=== PATIENT | female | born 1935 | race Caucasian/White ===

== ENCOUNTER → 2018-02-11 10:36 | Outpatient (CLI) | payer MEDICARE, OTHER, SELFPAY ==
--- NOTE | 2018-02-11 | DI.CT.S_ITS ---
PROCEDURE: CT CHEST WO CON INDICATIONS: PNEUMONIA PLEURAL EFFUSION TECHNIQUE: Noncontrast 5 mm thick sections acquired from the pulmonary apices to the posterior costophrenic angles. 7 mm thick coronal and sagittal MIP reformats were then acquired. For radiation dose reduction, the following was used: automated exposure control, adjustment of mA and/or kV according to patient size. COMPARISON: [facility], CT, ANGIOGRAPHY CHEST, 01/24/2018, 10:01. FINDINGS: Image quality: Excellent. Lungs and pleura: No acute air space opacities. No pleural effusions or pneumothorax. Central and peripheral airways are patent and normal in caliber. Mediastinum: Heart size is normal. Slight pericardial effusion. No mediastinal adenopathy by size criteria. Thoracic aorta and central pulmonary arteries are normal in size. Esophagus is normal in caliber. No hiatal hernia. Bones and chest wall: No suspicious bony lesions. No vertebral body compression fractures. No axillary or supraclavicular adenopathy by size criteria. Thyroid gland is not well-visualized by this noncontrast technique. Prior surgical clips right axilla Abdomen: Visualized upper abdominal solid organs and bowel loops appear normal in the absence of contrast. IMPRESSION: Right axillary surgical clips indicate likelihood of prior breast carcinoma surgery. Resolution of bilateral pleural effusions present 01/24/[address] scanning. No suspicion for pleural metastatic disease at this time. Very small pericardial effusion is again noted, diminished in size from the comparison CT scan 01/24/18. Sternotomy wires, presumed prior CABG. No definite acute disease. Dictated by: Tomas García M.D. on 02/11/2018 at 13:45 Approved by: Tomas García M.D. on 02/11/2018 at 13:48
== END ==
PROVIDERS: PCP Internal Medicine; Visit Provider Internal Medicine
DX: J18.9 Pneumonia, unspecified organism (principal); J90 Pleural effusion, not elsewhere classified
CPT/HCPCS: 71250

== ENCOUNTER → 2018-03-04 08:12 | Outpatient (CLI) | payer MEDICARE, OTHER, SELFPAY ==
--- NOTE | 2018-03-04 | DI.ECHO.S_ITS ---
[facility] +---------+ : : [address] [place] : : : : [id number] : : : : Phone: [phone]+ Echocardiogram Report + + :Name: MARC JO Study Date: 03/04/2018 Height: 66 in : :[facility] Exam Location: [facility] Weight: 180 lb : : Gender: Female BSA: 1.9 m2 : :: 1935 Age: 82 yrs BP: 152/90 mmHg: :Reason For Study: Chest Pain : :Ordering Physician: Ynes Heart Performed By: Magalys Bolivar : :Referring: [facility] : + + Interpretation Summary The left ventricle is normal in size. There is mild concentric left ventricular hypertrophy. Left ventricular systolic function is normal without focal wall motion abnormalities. The ejection fraction is estimated to be 60- 65%. Assessment of diastolic parameters indicates a relaxation abnormality of the left ventricle, consistent with normal filling pressures. The right ventricle is normal in size and function. The right ventricular systolic pressure is estimated at 26 mmHg assuming a right atrial pressure of 3 mm Hg. The left atrium is mildly dilated. Right atrial size is normal. There is no significant valvular heart disease. The aortic root is normal size. No significant changes since prior echo study on 07/01/2017. Procedure: A two-dimensional transthoracic echocardiogram with color flow and Doppler was performed. The study quality was technically adequate. Most of the acoustic windows were suboptimal, but the best imaging was obtained from the parasternal window. Comparison is made with the echocardiogram of 07/01/2017. The patient was in normal sinus rhythm during the exam. Left Ventricle: The left ventricle is normal in size. There is mild concentric left ventricular hypertrophy. Left ventricular systolic function is normal without focal wall motion abnormalities. The ejection fraction is estimated to be 60-65%. Assessment of diastolic parameters indicates a relaxation abnormality of the left ventricle, consistent with normal filling pressures. Right Ventricle: The right ventricle is normal in size and function. Atria: The left atrium is mildly dilated. Right atrial size is normal. The interatrial septum is intact with no evidence for an atrial septal defect. Mitral Valve: The mitral valve leaflets appear mildly thickened, but open well. There is mild mitral annular calcification. There is trace mitral regurgitation. Aortic Valve: The aortic valve is trileaflet. The aortic valve opens well. No aortic regurgitation is present. Tricuspid Valve: The tricuspid valve is normal in structure and function. There is trace tricuspid regurgitation. The right ventricular systolic pressure is estimated at 26 mmHg assuming a right atrial pressure of 3 mm Hg. Pulmonic Valve: The pulmonic valve is not well seen, but is grossly normal. There is a trace or physiologic amount of pulmonic regurgitation. There is no significant valvular heart disease. Great Vessels: The aortic root is normal size. The ascending aorta could not be visualized. The IVC is of normal diameter and collapses greater than 50% with a sniff. This suggests a low right atrial pressure of 3 mm Hg. Pericardium/ Pleura There is no pericardial effusion. There is an anterior echo-free space consistent with a fat pad. There is no pleural effusion. MMode/2D Measurements & Calculations LVIDd: 4.5 cm LVOT diam: 2.2 cm LVIDs: 2.9 cm FS: 35.9 % EPSS: 0.38 cm IVSd: 1.2 cm LVPWd: 1.3 cm LV ahuja. diameter/BSA (cm/m^2): 2.4 LV sys. diameter/BSA (cm/m^2): 1.5 LA A2 area: 17.5 cm2 RA long axis: 4.4 cm LA A4 area: 25.5 cm2 RA area: 13.5 cm2 LA length (vol): 5.6 cm RA vol: 35.4 ml LA vol: 67.6 ml RA : 18.5 ml/m2 LA vol index: 35.4 ml/m2 TAPSE: 2.2 cm Doppler Measurements & Calculations Ao V2 max: 116.5 cm/sec LVOT Max Ranjit: 77.6 cm/sec Ao V2 mean: 80.0 cm/sec LV V1 max P.4 mmHg Ao max P.4 mmHg LV V1 VTI: 16.6 cm Ao mean P.9 mmHg CAIO(I,D): 2.5 cm2 Ao V2 VTI: 24.0 cm CAIO(V,D): 2.4 cm2 sev ratio: 0.69 CAIO indexed to BSA (cm^2/m^2): 1.3 MV E max ranjit: 74.2 cm/sec TR max ranjit: 240.5 cm/sec MV A max ranjit: 92.1 cm/sec TR max P.1 mmHg MV E/A: 0.81 PA V2 max: 67.8 cm/sec Med Peak E' Ranjit: 6.0 cm/sec PA V2 mean: 44.9 cm/sec E/E' med: 12.3 PA mean P.93 mmHg Lat Peak E' Ranjit: 8.3 cm/sec PA pr(Accel): 7.5 mmHg E/E' lat: 9.0 E/e' average: 10.6 MV dec time: 0.24 sec Reading Physician:WIL
== END ==
PROVIDERS: PCP Internal Medicine; Visit Provider Internal Medicine
DX: R07.9 Chest pain, unspecified (principal)
CPT/HCPCS: 93306

== ENCOUNTER → 2018-03-27 16:38 | Outpatient (CLI) | payer MEDICARE, OTHER, SELFPAY ==
[2018-03-27 18:01] LABS: Alanine Aminotransferase 156 IU/L (9-52); Albumin 4.7 g/dL (3.5-5.0); Albumin Globulin Ratio 1.7 (1.0-2.8); Alkaline Phosphatase 178 U/L (38-126); Aspartate Aminotransferase 100 IU/L (14-36); BUN Creatinine Ratio 24.3 (6-22); Bilirubin Total 0.8 mg/dL (0.2-1.3); Blood Urea Nitrogen 17 mg/dL (7-17); Calcium 12.5 mg/dL (8.4-10.2); Carbon Dioxide 28 mmol/L (22-32); Chloride 104 mmol/L (98-107); Estimated Glomerular Filt Rate > 60.0 mL/min (>60); Globulin 2.8 g/dL (1.7-4.1); Glucose 99 mg/dL (80-110); HEMOLYSIS < 15 (0-50); Potassium 3.9 mmol/L (3.4-5.1); Sodium 143 mmol/L (137-145); Total Protein 7.5 g/dL (6.3-8.2)
[2018-03-27 18:03] LABS: Erythrocyte Sedimentation Rate 7 MM/HR (0-20)
[2018-03-27 18:13] LABS: C-Reactive Protein Quant < 0.5 mg/dL (<1.0); Rheumatoid Factor < 8.6 IU/mL (<12.0)
[2018-03-29 19:58] LABS: ANA Screen, IFA Negative (Negative)
== END ==
PROVIDERS: PCP Internal Medicine; Visit Provider Internal Medicine Cardiovascular Disease
DX: I30.0 Acute nonspecific idiopathic pericarditis (principal); I10 Essential (primary) hypertension
CPT/HCPCS: 36415; 80053; 84443; 85651; 86038; 86140; 86430

== ENCOUNTER → 2018-04-17 07:44 | Outpatient (CLI) | payer MEDICARE, OTHER, SELFPAY ==
--- NOTE | 2018-04-17 | DI.US.S_ITS ---
PROCEDURE: US ABDOMEN COMPLETE INDICATIONS: ABNORMAL RESULTS OF LIVER FUNCTION STUDIES TECHNIQUE: Real-time scanning was performed of the abdominal and retroperitoneal organs, with image documentation. COMPARISON: [facility], US, ABDOMEN COMPLETE, 05/22/2016, 8:54. FINDINGS: Liver: Liver has increased in size and is hyperechoic in echotexture. Gallbladder: Gallbladder is clear with normal wall thickness. Biliary ducts: Intrahepatic bile ducts are non-dilated. Extrahepatic bile duct caliber measures 5 mm. Normal is 6-7 mm or less in diameter, or 10 mm or less post-cholecystectomy. Pancreas: Visualized portions of the pancreas are sonographically normal. Tail is obscured. Spleen: Spleen is normal in size and homogeneous in echotexture. Kidneys: Kidneys are normal in size and echotexture. Right kidney measures 11.8 cm long; left kidney measures 11.0 cm long. No hydronephrosis or nephrolithiasis. No solid masses. Aorta: Visualized aorta is normal in caliber at less than 3 cm. calcified plaques. Iliacs: Proximal common iliac arteries are normal in caliber at less than 2.5 cm. IVC: Intrahepatic inferior vena cava is patent. Miscellaneous: No free abdominal fluid. IMPRESSION: 1. Liver has increased in size since prior study and shows evidence of steatosis. No mass lesions identified. Correlation with liver enzymes recommended. 2. No apparent biliary abnormality. Remainder of exam is unremarkable. Dictated by: Rocky Davenport M.D. on 04/17/2018 at 10:26 Approved by: Rocky Davenport M.D. on 04/17/2018 at 10:28
[2018-04-17 09:39] LABS: Alanine Aminotransferase 87 IU/L (9-52); Alkaline Phosphatase 146 U/L (38-126); Aspartate Aminotransferase 51 IU/L (14-36); Bilirubin Total 0.5 mg/dL (0.2-1.3); Creatine Kinase 38 U/L (30-135)
[2018-04-17 09:43] LABS: Rheumatoid Factor < 8.6 IU/mL (<12.0)
[2018-04-20 23:19] LABS: ANA Screen NEGATIVE (Negative); DNA Antibody Crithidia IFA NEGATIVE (Negative); Rheumatoid Factor <14 IU/mL; Sjogren Antiboday SS-A <1.0 NEG AI (<1.0 NEGATIVE); Sjogren Antiboday SS-B <1.0 NEG AI (<1.0 NEGATIVE); Sm Antibody <1.0 NEG AI (<1.0 NEGATIVE); Sm/RNP Antibody <1.0 NEG AI (<1.0 NEGATIVE)
== END ==
PROVIDERS: PCP Internal Medicine; Visit Provider Internal Medicine
DX: K76.0 Fatty (change of) liver, not elsewhere classified (principal); R94.5 Abnormal results of liver function studies; M25.50 Pain in unspecified joint; M79.1 Myalgia
CPT/HCPCS: 36415; 76700; 82247; 82550; 84075; 84450; 84460; 86038; 86430

== ENCOUNTER → 2018-05-12 09:00 | Outpatient (CLI) | payer MEDICARE, OTHER, SELFPAY ==
[2018-05-12 10:32] LABS: Alanine Aminotransferase 98 IU/L (9-52); Aspartate Aminotransferase 51 IU/L (14-36); BUN Creatinine Ratio 32.9 (6-22); Blood Urea Nitrogen 23 mg/dL (7-17); Carbon Dioxide 27 mmol/L (22-32); Chloride 104 mmol/L (98-107); Estimated Glomerular Filt Rate > 60.0 mL/min (>60); Glucose 167 mg/dL (80-110); HEMOLYSIS < 15 (0-50); Potassium 4.3 mmol/L (3.4-5.1); Sodium 141 mmol/L (137-145)
== END ==
PROVIDERS: PCP Internal Medicine; Visit Provider Internal Medicine
DX: E21.3 Hyperparathyroidism, unspecified (principal); R94.5 Abnormal results of liver function studies
CPT/HCPCS: 36415; 80048; 84450; 84460

== ENCOUNTER → 2018-05-16 12:33 | Outpatient (CLI) | payer MEDICARE, OTHER, SELFPAY | PROVIDERS: PCP Internal Medicine; Visit Provider Internal Medicine | DX: E21.3 Hyperparathyroidism, unspecified (principal); Z78.0 Asymptomatic menopausal state | CPT/HCPCS: 77080 ==

== ENCOUNTER → 2018-08-11 09:36 | Outpatient (CLI) | payer MEDICARE, OTHER, SELFPAY ==
[2018-08-11 10:59] LABS: Hemoglobin A1C% w Est Avg Glu 6.7 % (4.0-6.0)
[2018-08-11 11:40] LABS: Alanine Aminotransferase 134 IU/L (9-52); Aspartate Aminotransferase 88 IU/L (14-36); BUN Creatinine Ratio 21.3 (6-22); Blood Urea Nitrogen 17 mg/dL (7-17); Calcium 12.1 mg/dL (8.4-10.2); Carbon Dioxide 27 mmol/L (22-32); Chloride 105 mmol/L (98-107); Estimated Glomerular Filt Rate > 60.0 mL/min (>60); Glucose 148 mg/dL (80-110); HDL Cholesterol 53 mg/dL (40-60); HEMOLYSIS < 15 (0-50); Potassium 4.6 mmol/L (3.4-5.1); Sodium 142 mmol/L (137-145); Triglycerides 299 mg/dL (35-150)
[2018-08-11 11:53] LABS: Cholesterol 337 mg/dL (140-199); LDL Cholesterol Calculated 224 mg/dL (<100)
[2018-08-11 11:56] LABS: TSH w/ Reflex to FT4 3.01 uIU/mL (0.47-4.68)
== END ==
PROVIDERS: PCP Internal Medicine; Visit Provider Internal Medicine
DX: I10 Essential (primary) hypertension (principal); E11.9 Type 2 diabetes mellitus without complications; E78.5 Hyperlipidemia, unspecified
CPT/HCPCS: 36415; 80048; 80061; 83036; 84443; 84450; 84460

== ENCOUNTER → 2018-08-13 15:55 | Outpatient (CLI) | payer MEDICARE, OTHER, SELFPAY ==
--- NOTE | 2018-08-13 | DI.MRI.S_ITS ---
PROCEDURE: MR ELBOW RT WO CON INDICATIONS: PAIN IN RIGHT ELBOW TECHNIQUE: Noncontrast coronal proton density fast spin echo and T2 fast spin echo with fat saturation, axial and sagittal T1 spin echo and T2 fast spin echo with fat saturation through the elbow. COMPARISON: None. FINDINGS: Image quality: Excellent. Lateral structures: The lateral ulnar collateral ligament and radial collateral ligament both appear intact. Mildly thickened proximal radial collateral ligament is seen near its humeral insertion suggestive of low-grade ligament sprain. Mildly thickened overlying common extensor tendon origin at its humeral insertion is also seen concerning for low-grade tendinosis. No evidence of common extensor tendon tear. Medial structures: The ulnar collateral ligament appears intact. The overlying common flexor tendon appears normal. The ulnar nerve appears normal in size and signal within the cubital tunnel. Anterior structures: The biceps and brachialis tendons both appear intact as they insert onto the proximal radius and ulna, respectively. No bicipitoradial bursal fluid. The median and radial neurovascular bundles appear normal; no focal muscle atrophy to suggest nerve impingement. Posterior structures: The conjoint triceps tendon from the long and lateral heads appears intact. The medial head of the triceps tendon also appears normal, with direct muscle insertion onto the olecranon. No olecranon bursal fluid. Bone and cartilage: No bone marrow contusions or fractures. No osteochondral injuries. Osteoarthritic changes are noted involving medial portion of elbow joint with joint space narrowing, subchondral sclerosis and cyst formation, and small marginal osteophyte formation. IMPRESSION: 1. Suggestion of lateral epicondylitis with tendinosis involving proximal common extensor tendon origin as well as low-grade proximal radial collateral ligament sprain. No full-thickness tendon or ligament rupture. 2. 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 No fracture or dislocation. No marrow edema. No significant joint effusion. Dictated by: Ralph Harris M.D. on 08/14/2018 at 8:48 Approved by: Ralph Harris M.D. on 08/14/2018 at 9:21
== END ==
PROVIDERS: PCP Internal Medicine; Visit Provider Internal Medicine
DX: M25.521 Pain in right elbow (principal); M19.021 Primary osteoarthritis, right elbow
CPT/HCPCS: 73221

== ENCOUNTER → 2018-08-25 13:46 | Outpatient (CLI) | payer MEDICARE, OTHER, SELFPAY ==
--- NOTE | 2018-08-25 | DI.MG.S_ITS ---
BILATERAL DIGITAL SCREENING MAMMOGRAM 3D/2D WITH CAD: 08/25/2018 CLINICAL: Routine screening. Personal history of right breast cancer. Comparison is made to exams dated: 08/01/2017 mammogram, 05/17/2017 mammogram, and 07/30/2016 mammogram - [facility]. The tissue of both breasts is heterogeneously dense. This may lower the sensitivity of mammography. Current study was also evaluated with a Computer Aided Detection (CAD) system. There are benign post operative findings in the right breast. No significant masses, calcifications, or other findings are seen in either breast. There has been no significant interval change. IMPRESSION: There is no mammographic evidence of malignancy. A 1 year screening mammogram is recommended. This exam was interpreted at Station ID: [id number]. NOTE: For mammograms, a report in lay terms will be sent to the patient. Approximately 15% of breast malignancies will not be visualized mammographically. In the management of a palpable breast mass, a negative mammogram must not discourage biopsy of a clinically suspicious lesion. Electronically Signed By: Esvin agee/gopal:08/25/2018 20:43:37 letter sent: Normal Exam ACR BI-RADS Category 2: Benign Finding(s) 3342F
== END ==
PROVIDERS: PCP Internal Medicine; Visit Provider Internal Medicine
DX: Z12.31 Encounter for screening mammogram for malignant neoplasm of breast (principal); Z85.3 Personal history of malignant neoplasm of breast
CPT/HCPCS: 77063; 77067

== ENCOUNTER → 2018-09-06 08:40 | Outpatient (CLI) | payer MEDICARE, OTHER, SELFPAY ==
[2018-09-06 09:34] LABS: HDL Cholesterol 58 mg/dL (40-60); Triglycerides 345 mg/dL (35-150)
[2018-09-06 09:40] LABS: Cholesterol 318 mg/dL (140-199); LDL Cholesterol Calculated 191 mg/dL (<100)
== END ==
PROVIDERS: PCP Internal Medicine; Visit Provider Internal Medicine Cardiovascular Disease
DX: E78.2 Mixed hyperlipidemia (principal)
CPT/HCPCS: 36415; 80061

== ENCOUNTER → 2019-03-04 09:18 | Outpatient (CLI) | payer MEDICARE, OTHER, SELFPAY ==
--- NOTE | 2019-03-04 | DI.RAD.S_ITS ---
PROCEDURE: XR LUMBAR SPINE 2-3V INDICATIONS: BACK PAIN TECHNIQUE: 3 views of the lumbar spine were acquired. COMPARISON: [facility], CT, CT CHEST WO [facility], 02/11/2018, 10:45. FINDINGS: Bones: 5 [id number] vertebrae are present. The lowest visualized thoracic rib on the frontal projection is quite small, considered T12. On the lateral view the L5 vertebral body therefore has its upper end plate at the upper margin of the iliac crest level. There is normal bony alignment except for slight anterolisthesis of L4 and L5 due to facet osteoarthritis.. No vertebral body compression fractures. No suspicious bony lesions. Soft tissues: Overlying bowel gas pattern is normal. No suspicious soft tissue calcifications. IMPRESSION: No compression fracture seen. There is a mild degree of degenerative disc height reduction along the lumbosacral spine. Slight grade 1 anterolisthesis of L4-L5 is associated with bilateral mild facet osteoarthritis at this level, and mild to moderate such degeneration can be seen at the L5-S1 level. There is potential for spinal and foraminal stenosis at these 2 lower levels. Dictated by: Tomas García M.D. on 03/04/2019 at 9:55 Approved by: Tomas García M.D. on 03/04/2019 at 10:00
== END ==
PROVIDERS: PCP Internal Medicine; Visit Provider Internal Medicine
DX: M54.5 Low back pain (principal); M47.816 Spondylosis without myelopathy or radiculopathy, lumbar region; M51.37 Other intervertebral disc degeneration, lumbosacral region
CPT/HCPCS: 72100

== ENCOUNTER → 2019-03-12 08:15 | Outpatient (CLI) | payer MEDICARE, OTHER, SELFPAY ==
[2019-03-12 09:18] LABS: Hemoglobin A1C% w Est Avg Glu 7.8 % (4.0-6.0)
[2019-03-12 09:40] LABS: Alanine Aminotransferase 98 IU/L (9-52); Albumin 4.5 g/dL (3.5-5.0); Albumin Globulin Ratio 1.5 (1.0-2.8); Alkaline Phosphatase 220 U/L (38-126); Aspartate Aminotransferase 78 IU/L (14-36); BUN Creatinine Ratio 27.5 (6-22); Bilirubin Total 0.6 mg/dL (0.2-1.3); Blood Urea Nitrogen 22 mg/dL (7-17); Carbon Dioxide 30 mmol/L (22-32); Chloride 103 mmol/L (98-107); Cholesterol 207 mg/dL (140-199); Estimated Glomerular Filt Rate > 60.0 mL/min (>60); Globulin 3.1 g/dL (1.7-4.1); Glucose 202 mg/dL (80-110); HDL Cholesterol 45 mg/dL (40-60); HEMOLYSIS 20 (0-50); LDL Cholesterol Calculated 96 mg/dL (<100); Potassium 4.1 mmol/L (3.4-5.1); Sodium 140 mmol/L (137-145); Total Protein 7.6 g/dL (6.3-8.2); Triglycerides 328 mg/dL (35-150)
[2019-03-12 11:57] LABS: Free T4, Direct Thyroxine 0.86 ng/dL (0.78-2.19)
== END ==
PROVIDERS: PCP Internal Medicine; Visit Provider Internal Medicine
DX: E21.3 Hyperparathyroidism, unspecified (principal); E78.5 Hyperlipidemia, unspecified; E11.9 Type 2 diabetes mellitus without complications; E03.9 Hypothyroidism, unspecified
CPT/HCPCS: 36415; 80053; 80061; 83036; 84439; 84443

== ENCOUNTER → 2019-06-22 13:39 | Outpatient (CLI) | payer MEDICARE, OTHER, SELFPAY ==
--- NOTE | 2019-06-22 | DI.RAD.S_ITS ---
PROCEDURE: XR CHEST 2V INDICATIONS: ACUTE BRONCHITIS TECHNIQUE: 2 views of the chest were acquired. COMPARISON: [facility], , CHEST 1 VIEW, 01/01/2018, 11:53. FINDINGS: Surgical changes and devices: Median sternotomy wires are seen. Surgical clips are noted in right axilla. Lungs and pleura: Lungs are clear. No pleural effusions or pneumothorax. Mediastinum: Tortuous thoracic aorta is seen. Heart size is normal. Bones and chest wall: No suspicious bony abnormalities. Soft tissues appear unremarkable. IMPRESSION: Tortuous thoracic aorta. No focal infiltrate, pleural effusion or pneumothorax. Dictated by: Ralph Harris M.D. on 06/22/2019 at 16:18 Approved by: Ralph Harris M.D. on 06/22/2019 at 16:20
== END ==
PROVIDERS: PCP Internal Medicine; Visit Provider Internal Medicine
DX: J20.9 Acute bronchitis, unspecified (principal)
CPT/HCPCS: 71046

== ENCOUNTER → 2019-08-31 13:38 | Outpatient (CLI) | payer MEDICARE, OTHER, SELFPAY | PROVIDERS: PCP Internal Medicine; Visit Provider Internal Medicine | DX: Z12.31 Encounter for screening mammogram for malignant neoplasm of breast (principal); Z53.9 Procedure and treatment not carried out, unspecified reason ==

== ENCOUNTER 2019-09-03 13:45 | Outpatient (RCR) | payer MEDICARE, OTHER, SELFPAY ==
--- NOTE | 2019-04-13 17:35 | PT.OPPOC ---
Current Diagnoses Low back pain (04/13/19) Provider Visit Care Team Role Provider Type Naty Heart MD Attending Provider Physician Primary Care Provider Specialty: Internal Medicine Address: [address] [place] [address], [id number] Email: Plan Of Care PT-OP-T Assessment and Plan Start: 04/13/19 17:17 Freq: Status: Active Protocol: Document 04/13/19 17:21 EA (Rec: 04/13/19 17:22 EA [id number]) Physical Therapy Assessment Rehab Potential Rehabilitation Potential Fair Evaluation Complexity Number of Personal Factors/Comorbidities 1-2 Number of Body Systems Impaired 3 Clinical Presentation at Evaluation Evolving Impairments Impairments Activity Tolerance Functional Mobility Gait Pain Posture ROM Soft Tissue Mobility Strength Transfers Goals Five Impairment Min A with bed mobility Phlebotomy Manager Goal (LTG) Patient will perform supine <- > sit bed mobility independently. LTG Duration 4 wks Four Impairment Unable to walk more than 3 blocks Alf Goal (LTG) Patient will ambulate with no AD on even serfucaes > 3 blocks a day LTG Duration 5 wks Three Impairment Unable to use stationary bike more than 10 mins Phlebotomy Manager Goal (LTG) Patient will use her stationary bike more than > mins with no increased of back symptoms LTG Duration 6 wks Two Impairment Oswetry score of 25/50 Alf Goal (LTG) Patient have oswestry score of <15/50 to enhance daily function/ADL LTG Duration 4 wks One Impairment no HEP in place Alf Goal (LTG) Patient will exhibited indep HEP and improve body mechanics . LTG Duration 4 wks Assessment Summary Assessment Pleasant 83 y/o F patient ambulatory with no acute distress with referring diagnosis of R LBP. Today patient presented with difficulty with lumbosacral mobility due to localized lumabr pain. Tests and assessment reveals LOM of motion to lumbosacral SF> rotation> extension>flexion. Standing posture shows fwd head, rounded shoulder, abdominal protrusion with increased lordotic curve. Functional mobility tests reveals min assist with supine <-> sit indicating weak abdominal with poor body mechanics. Palpation reveals grade 2 tenderness but no signs of acute inflammation at right low lumbar and upper gluteals. Patient signs and symptoms is consistent with current MRI indicating lumbar DDD and facets OA. Patient would greatly benefit with skilled PT to address the aforementioned issues. Physical Therapy Plan Frequency and Duration Frequency of Treatment 2x/Week Duration of Treatment 10 wks Plan of Care Start Date 04/13/19 Plan of Care End Date 06/01/19 Therapeutic Interventions Therapeutic Interventions Home Exercise Program Joint Mobilizations Manual Therapy Neuromuscular Re-education Patient/Caregiver Education Self-Care/Home Management Soft Tissue Mobilization Taping Therapeutic Exercises Modalities Cold Pack/Ice Massage Electric Stimulation Hot Packs Ultrasound Next Visit Focus/Plan Next Note Type Treatment Note Plan of Care Dates Plan of Care Start Date 04/13/19 Plan of Care End Date 06/01/19 Please Sign and Return: I have reviewed this Plan of Care and certify that the skilled therapy services above are required to meet the patient?s needs. Physician Signature Date Printed Name and Credentials Clinical Instructor Signature Printed Name and Credentials
--- NOTE | 2019-04-13 17:35 | PT.OIE ---
Current Diagnoses Low back pain (04/13/19) Provider Visit Care Team Role Provider Type Naty Heart MD Attending Provider Physician Primary Care Provider Specialty: Internal Medicine Address: [address] [place] [address], [id number] Email: Physical Therapy Initial Evaluation PT-OP-A Visit Information Start: 04/13/19 17:17 Freq: Status: Active Protocol: Document 04/13/19 17:35 EA (Rec: 04/14/19 15:10 EA [id number]) Out-Patient Physical Therapy Visit Information Visit Information Visit Type Initial Evaluation Visit Start Time 12:15 Visit Stop Time 13:00 Total Visit Minutes 45 Visit Number 1 Evaluation Information Evaluation Date 04/13/19 Precautions Precautions Dizziness supine<-> sit, HTN, CHF, depression PT-OP-B Current Condition Start: 04/13/19 17:17 Freq: Status: Active Protocol: Document 04/13/19 17:35 EA (Rec: 04/14/19 15:10 EA [id number]) Current Condition History of Current Condition Onset Date 1 year ago Current Complaints Chronic low back pain History of Current Condition Patient reports gradual onset of low back pain with R > L in a year duration. She reports no significant injury or back medical history. Pt reports 2 months ago it was aggravated with increased walking duration and that prompted to see her doctor and was undergone MRI. She reports MRI lumbar spine OA with mild L4- L5 anterolisthesis. Pt reports difficulty in bed mobility that requires help and as well difficulty in ambulation distance due to increased of back pain. Prior Treatments and Tests No reports of low back formal treatment, OTC helps a bit. MRI last month. Future Testing and Treatments Planned None reported Treatment Goals Patient/Caregiver Goals Patient would like to get back to her usual activities such as walking more than 3 blocks on most of the days and 3 days a week of low to mod intensity stationary bike. Prior Functional Status Baseline Function- ADL's Independent Baseline Function- Mobility Independent Baseline Function- Gait Indep with no used of Device a year ago Baseline Function- Work/School Retired Baseline Function- Recreation/Hobbies Likes to walk > 3 blocks Likes to perform stationary bike > 15 mins duration Current Functional Impairments (Reported) Functional Limitations- ADL's Indepedent but requires help with cooking due to increased of pain in standing. Functional Limitations- Mobility/Gait Ambulate indep < a block with the use of AD Functional Limitations- Work/School retired Functional Limitations- Recreation/ Unable to walk outdoors Hobbies Functional Limitations- Other Unable to perform staionary bike. Personal Factors Other Personal Factors That May Effect Dizziness supine<-> sit, HTN, Therapy/Recovery CHF, depression PT-OP-C Subjective Start: 04/13/19 17:17 Freq: Status: Active Protocol: Document 04/13/19 17:35 EA (Rec: 04/14/19 15:10 EA [id number]) OP-PT Subjective Patient Comments Patient Comments Low back pain radiates from low back area to right leg at night and with crampin sensation. Patient Reported Progress Same Patient Questionnaires Oswestry Low Back Index Oswestry Score 21 Oswestry Impairment 40 to 59% Impaired (Score 40- 59) PT-OP-F Manual Assessment Start: 04/13/19 17:17 Freq: Status: Active Protocol: Document 04/13/19 17:35 EA (Rec: 04/14/19 15:10 EA [id number]) Manual Assessments Soft Tissue Assessment Soft Tissue Mobility Assessment Lumbar extensors tightness, hip flexors tightness, pectoral muscle tightness. Joint Mobility Assessment Joint Mobility Assessment Hypo lumbar joing mob. PT-OP-J Posture/Palpation/Skin Start: 04/13/19 17:17 Freq: Status: Active Protocol: Document 04/13/19 17:35 EA (Rec: 04/14/19 15:10 EA [id number]) Posture Evaluation Comments Posture Comments Fwd head, rounded shoulders, knocked knees, increased lumbar curvature with abdmominal protrusion Palpation Assessment Location One Palpation Location paralumbars, upper gluteals, QL, SI joint, lumbosacral fascia Palpation Findings Soft Tissue Tightness Tenderness PT-OP-K Range of Motion Start: 04/13/19 17:17 Freq: Status: Active Protocol: Document 04/13/19 17:35 EA (Rec: 04/14/19 15:10 EA [id number]) Lumbar Spine Range of Motion Lumbar Spine Active Percentage Testing Position Standing Flexion 70 Extension 60 Rotation Left 50 Rotation Right 50 Lateral Flexion Left 50 Lateral Flexion Right 50 ROM Limitations Soft Tissue Tightness Muscle Weakness Pain PT-OP-L Special Tests Start: 04/13/19 17:17 Freq: Status: Active Protocol: Document 04/13/19 17:35 EA (Rec: 04/14/19 15:10 EA [id number]) Special Tests Lumbar Spine Special Tests Straight Leg Raise Test Results + Hip Special Tests Piriformis Test Results R + PT-OP-M Strength Start: 04/13/19 17:17 Freq: Status: Active Protocol: Document 04/13/19 17:35 EA (Rec: 04/14/19 15:10 EA [id number]) Trunk Strength Trunk Manual Muscle Testing Testing Position supine and standing Flexion 3- Fair- Extension 4 Good Rotation Left 4 Good Rotation Right 4 Good Lateral Flexion Left 4- Good- Lateral Flexion Right 4- Good- PT-OP-Q Treatments Start: 04/13/19 17:17 Freq: Status: Active Protocol: Document 04/13/19 17:35 EA (Rec: 04/14/19 15:10 EA [id number]) Self-Care/Home Management Treatment Education Patient Education Body Mechanics Home Exercise Program Joint Protection Pain Management Posture PT-OP-T Assessment and Plan Start: 04/13/19 17:17 Freq: Status: Active Protocol: Document 04/13/19 17:21 EA (Rec: 04/13/19 17:22 EA [id number]) Physical Therapy Assessment Rehab Potential Rehabilitation Potential Fair Evaluation Complexity Number of Personal Factors/Comorbidities 1-2 Number of Body Systems Impaired 3 Clinical Presentation at Evaluation Evolving Impairments Impairments Activity Tolerance Functional Mobility Gait Pain Posture ROM Soft Tissue Mobility Strength Transfers Goals Five Impairment Min A with bed mobility Line Fisher Goal (LTG) Patient will perform supine <- > sit bed mobility independently. LTG Duration 4 wks Four Impairment Unable to walk more than 3 blocks Custodial Goal (LTG) Patient will ambulate with no AD on even serfucaes > 3 blocks a day LTG Duration 5 wks Three Impairment Unable to use stationary bike more than 10 mins Custodial Goal (LTG) Patient will use her stationary bike more than > mins with no increased of back symptoms LTG Duration 6 wks Two Impairment Oswetry score of 25/50 Custodial Goal (LTG) Patient have oswestry score of <15/50 to enhance daily function/ADL LTG Duration 4 wks One Impairment no HEP in place Custodial Goal (LTG) Patient will exhibited indep HEP and improve body mechanics . LTG Duration 4 wks Assessment Summary Assessment Pleasant 83 y/o F patient ambulatory with no acute distress with referring diagnosis of R LBP. Today patient presented with difficulty with lumbosacral mobility due to localized lumabr pain. Tests and assessment reveals LOM of motion to lumbosacral SF> rotation> extension>flexion. Standing posture shows fwd head, rounded shoulder, abdominal protrusion with increased lordotic curve. Functional mobility tests reveals min assist with supine <-> sit indicating weak abdominal with poor body mechanics. Palpation reveals grade 2 tenderness but no signs of acute inflammation at right low lumbar and upper gluteals. Patient signs and symptoms is consistent with current MRI indicating lumbars DDD and facets OA. Patient would greatly benefit with skilled PT to address the aforementioned issues. Physical Therapy Plan Frequency and Duration Frequency of Treatment 2x/Week Duration of Treatment 10 wks Plan of Care Start Date 04/13/19 Plan of Care End Date 06/01/19 Therapeutic Interventions Therapeutic Interventions Home Exercise Program Joint Mobilizations Manual Therapy Neuromuscular Re-education Patient/Caregiver Education Self-Care/Home Management Soft Tissue Mobilization Taping Therapeutic Exercises Modalities Cold Pack/Ice Massage Electric Stimulation Hot Packs Ultrasound Next Visit Focus/Plan Next Note Type Treatment Note
--- NOTE | 2019-04-15 14:31 | PT.OTN ---
Current Diagnoses Low back pain (04/15/19) Physical Therapy Treatment Note PT-OP-A Visit Information Start: 04/13/19 17:17 Freq: Status: Active Protocol: Document 04/13/19 17:35 EA (Rec: 04/14/19 15:10 EA [id number]) Out-Patient Physical Therapy Visit Information Visit Information Visit Type Initial Evaluation Visit Start Time 12:15 Visit Stop Time 13:00 Total Visit Minutes 45 Visit Number 1 Evaluation Information Evaluation Date 04/13/19 Precautions Precautions Dizziness supine<-> sit, HTN, CHF, depression PT-OP-B Current Condition Start: 04/13/19 17:17 Freq: Status: Active Protocol: Document 04/13/19 17:35 EA (Rec: 04/14/19 15:10 EA [id number]) Current Condition History of Current Condition Onset Date 1 year ago Current Complaints Chronic low back pain History of Current Condition Patient reports gradual onset of low back pain with R > L in a year duration. She reports no significant injury or back medical history. Pt reports 2 months ago it was aggravated with increased walking duration and that prompted to see her doctor and was undergone MRI. 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 Pt reports difficulty in bed mobility that requires help and as well difficulty in ambulation distance due to increased of back pain. Prior Treatments and Tests No reports of low back formal treament, OTC helps a bit. MRI last month. Future Testing and Treatments Planned None reported Treatment Goals Patient/Caregiver Goals Patient would like to get back to her usual activities such as walking more than 3 blocks on most of the days and 3 days a week of low to mod intensity stationary bike. Prior Functional Status Baseline Function- ADL's Independent Baseline Function- Mobility Independent Baseline Function- Gait Indep with no used of Device a year ago Baseline Function- Work/School Retired Baseline Function- Recreation/Hobbies Likes to walk > 3 blocks Likes to perform stationary bike > 15 mins duration Current Functional Impairments (Reported) Functional Limitations- ADL's Indepedent but requires help with cooking due to increased of pain in standing. Functional Limitations- Mobility/Gait Ambulate indep < a block with the use of AD Functional Limitations- Work/School retired Functional Limitations- Recreation/ Unable to walk outdoors Hobbies Functional Limitations- Other Unable to perform staionary bike. Personal Factors Other Personal Factors That May Effect Dizziness supine<-> sit, HTN, Therapy/Recovery CHF, depression PT-OP-C Subjective Start: 04/13/19 17:17 Freq: Status: Active Protocol: Document 04/15/19 12:54 EA (Rec: 04/15/19 12:58 EA [id number]) OP-PT Subjective Patient Comments Patient Comments Patient is with her son and asking for HEP with images. PT-OP-F Manual Assessment Start: 04/13/19 17:17 Freq: Status: Active Protocol: Document 04/13/19 17:35 EA (Rec: 04/14/19 15:10 EA [id number]) Manual Assessments Soft Tissue Assessment Soft Tissue Mobility Assessment Lumbar extensors tightness, hip flexors tightness, pectoral muscle tightness. Joint Mobility Assessment Joint Mobility Assessment Hypo lumbar joing mob. PT-OP-J Posture/Palpation/Skin Start: 04/13/19 17:17 Freq: Status: Active Protocol: Document 04/13/19 17:35 EA (Rec: 04/14/19 15:10 EA [id number]) Posture Evaluation Comments Posture Comments Fwd head, rounded shoulders, knocked knees, increased lumbar curvature with abdmominal protrusion Palpation Assessment Location One Palpation Location paralumbars, upper gluteals, QL, SI joint, lumbosacral fascia Palpation Findings Soft Tissue Tightness Tenderness PT-OP-K Range of Motion Start: 04/13/19 17:17 Freq: Status: Active Protocol: Document 04/13/19 17:35 EA (Rec: 04/14/19 15:10 EA [id number]) Lumbar Spine Range of Motion Lumbar Spine Active Percentage Testing Position Standing Flexion 70 Extension 60 Rotation Left 50 Rotation Right 50 Lateral Flexion Left 50 Lateral Flexion Right 50 ROM Limitations Soft Tissue Tightness Muscle Weakness Pain PT-OP-L Special Tests Start: 04/13/19 17:17 Freq: Status: Active Protocol: Document 04/13/19 17:35 EA (Rec: 04/14/19 15:10 EA [id number]) Special Tests Lumbar Spine Special Tests Straight Leg Raise Test Results + Hip Special Tests Piriformis Test Results R + PT-OP-M Strength Start: 04/13/19 17:17 Freq: Status: Active Protocol: Document 04/13/19 17:35 EA (Rec: 04/14/19 15:10 EA [id number]) Trunk Strength Trunk Manual Muscle Testing Testing Position supine and standing Flexion 3- Fair- Extension 4 Good Rotation Left 4 Good Rotation Right 4 Good Lateral Flexion Left 4- Good- Lateral Flexion Right 4- Good- PT-OP-Q Treatments Start: 04/13/19 17:17 Freq: Status: Active Protocol: Document 04/15/19 12:54 EA (Rec: 04/15/19 12:58 EA [id number]) Cardio Equipment Recumbent Stepper (Sci-Fit) Duration (Minutes) 7 Resistance 1 Seat Position 10 Therapeutic Exercises Supine Exercises 3 Supine Exercise Name SKTC Reps/Minutes x 30SH x 2 reps each 2 Supine Exercise Name Low trunk rotation Reps/Minutes x 10 reps 1 Supine Exercise Name PPT Reps/Minutes x 5SH x 10 reps Comments count out loud; no valsalva Manual Therapy Treatment Soft Tissue Mobilization 1 Body Location paralumabrs; upper gluteals Mobilization Type Myofascial Release Rolling Trigger Point Release Intensity/Depth Superficial Body Position Sitting PT-OP-R Modalities Start: 04/13/19 17:17 Freq: Status: Active Protocol: Document 04/15/19 12:54 EA (Rec: 04/15/19 12:58 EA [id number]) Electric Stimulation Electric Stimulation Interferential Current (IFC) Body Location low paralumbars Duration (Minutes) 15 Intensity 25 Patient Position Sitting Combined With Heat/Cold Hot Pack PT-OP-T Assessment and Plan Start: 04/13/19 17:17 Freq: Status: Active Protocol: Document 04/15/19 12:54 EA (Rec: 04/15/19 12:58 EA [id number]) Physical Therapy Assessment Assessment Summary Assessment Pt tolerated treament exercises and understand HEP. Patient agreed to comply. I advised not to perform some of the HEP after next week eye surgery. Physical Therapy Plan Next Visit Focus/Plan Next Note Type Treatment Note
--- NOTE | 2019-05-12 14:07 | PT.OTN ---
Current Diagnoses Low back pain (05/12/19) Physical Therapy Treatment Note PT-OP-A Visit Information Start: 04/13/19 17:17 Freq: Status: Active Protocol: Document 05/12/19 13:08 EA (Rec: 05/12/19 13:10 EA [id number]) Out-Patient Physical Therapy Visit Information Visit Information Visit Type Treatment Note Visit Start Time 13:00 Visit Stop Time 13:48 Total Visit Minutes 48 Visit Number 3 PT-OP-B Current Condition Start: 04/13/19 17:17 Freq: Status: Active Protocol: Document 04/13/19 17:35 EA (Rec: 04/14/19 15:10 EA [id number]) Current Condition History of Current Condition Onset Date 1 year ago Current Complaints Chronic low back pain History of Current Condition Patient reports gradual onset of low back pain with R > L in a year duration. She reports no significant injury or back medical history. Pt reports 2 months ago it was aggravated with increased walking duration and that prompted to see her doctor and was undergone MRI. 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 Pt reports difficulty in bed mobility that requires help and as well difficulty in ambulation distance due to increased of back pain. Prior Treatments and Tests No reports of low back formal treament, OTC helps a bit. MRI last month. Future Testing and Treatments Planned None reported Treatment Goals Patient/Caregiver Goals Patient would like to get back to her usual activities such as walking more than 3 blocks on most of the days and 3 days a week of low to mod intensity stationary bike. Prior Functional Status Baseline Function- ADL's Independent Baseline Function- Mobility Independent Baseline Function- Gait Indep with no used of Device a year ago Baseline Function- Work/School Retired Baseline Function- Recreation/Hobbies Likes to walk > 3 blocks Likes to perform stationary bike > 15 mins duration Current Functional Impairments (Reported) Functional Limitations- ADL's Indepedent but requires help with cooking due to increased of pain in standing. Functional Limitations- Mobility/Gait Ambulate indep < a block with the use of AD Functional Limitations- Work/School retired Functional Limitations- Recreation/ Unable to walk outdoors Hobbies Functional Limitations- Other Unable to perform staionary bike. Personal Factors Other Personal Factors That May Effect Dizziness supine<-> sit, HTN, Therapy/Recovery CHF, depression PT-OP-C Subjective Start: 04/13/19 17:17 Freq: Status: Active Protocol: Document 05/12/19 13:08 EA (Rec: 05/12/19 13:10 EA [id number]) OP-PT Subjective Patient Comments Patient Comments Pt reports pain to low back is much less and she has been compliant with HEP and cardio exercises at home. PT-OP-F Manual Assessment Start: 04/13/19 17:17 Freq: Status: Active Protocol: Document 04/13/19 17:35 EA (Rec: 04/14/19 15:10 EA [id number]) Manual Assessments Soft Tissue Assessment Soft Tissue Mobility Assessment Lumbar extensors tightness, hip flexors tightness, pectoral muscle tightness. Joint Mobility Assessment Joint Mobility Assessment Hypo lumbar joing mob. PT-OP-J Posture/Palpation/Skin Start: 04/13/19 17:17 Freq: Status: Active Protocol: Document 04/13/19 17:35 EA (Rec: 04/14/19 15:10 EA [id number]) Posture Evaluation Comments Posture Comments Fwd head, rounded shoulders, knocked knees, increased lumbar curvature with abdmominal protrusion Palpation Assessment Location One Palpation Location paralumbars, upper gluteals, QL, SI joint, lumbosacral fascia Palpation Findings Soft Tissue Tightness Tenderness PT-OP-K Range of Motion Start: 04/13/19 17:17 Freq: Status: Active Protocol: Document 04/13/19 17:35 EA (Rec: 04/14/19 15:10 EA [id number]) Lumbar Spine Range of Motion Lumbar Spine Active Percentage Testing Position Standing Flexion 70 Extension 60 Rotation Left 50 Rotation Right 50 Lateral Flexion Left 50 Lateral Flexion Right 50 ROM Limitations Soft Tissue Tightness Muscle Weakness Pain PT-OP-L Special Tests Start: 04/13/19 17:17 Freq: Status: Active Protocol: Document 04/13/19 17:35 EA (Rec: 04/14/19 15:10 EA [id number]) Special Tests Lumbar Spine Special Tests Straight Leg Raise Test Results + Hip Special Tests Piriformis Test Results R + PT-OP-M Strength Start: 04/13/19 17:17 Freq: Status: Active Protocol: Document 04/13/19 17:35 EA (Rec: 04/14/19 15:10 EA [id number]) Trunk Strength Trunk Manual Muscle Testing Testing Position supine and standing Flexion 3- Fair- Extension 4 Good Rotation Left 4 Good Rotation Right 4 Good Lateral Flexion Left 4- Good- Lateral Flexion Right 4- Good- PT-OP-Q Treatments Start: 04/13/19 17:17 Freq: Status: Active Protocol: Document 05/12/19 13:08 EA (Rec: 05/12/19 13:10 EA [id number]) Cardio Equipment Recumbent Stepper (Sci-Fit) Duration (Minutes) 7 Resistance 1 Seat Position 10 Therapeutic Exercises Supine Exercises 3 Supine Exercise Name SKTC Reps/Minutes x 30SH x 2 reps each 2 Supine Exercise Name Low trunk rotation Reps/Minutes x 10 reps 1 Supine Exercise Name PPT Reps/Minutes x 5SH x 10 reps Comments count out loud; no valsalva Manual Therapy Treatment Soft Tissue Mobilization 1 Body Location paralumabrs; upper gluteals Mobilization Type Myofascial Release Rolling Trigger Point Release Intensity/Depth Superficial Body Position Sitting Comments leaning to the table fwd PT-OP-R Modalities Start: 04/13/19 17:17 Freq: Status: Active Protocol: Document 05/12/19 13:08 EA (Rec: 05/12/19 13:10 EA [id number]) Electric Stimulation Electric Stimulation Interferential Current (IFC) Body Location low paralumbars Duration (Minutes) 15 Intensity 25 Patient Position Sitting Combined With Heat/Cold Hot Pack PT-OP-T Assessment and Plan Start: 04/13/19 17:17 Freq: Status: Active Protocol: Document 05/12/19 13:36 EA (Rec: 05/12/19 13:38 EA [id number]) Physical Therapy Assessment Assessment Summary Assessment Patient requires rest from supine to sit due to dizziness . She feels improved after manual in sitting and leaning fwd to table position. Physical Therapy Plan Next Visit Focus/Plan Next Note Type Treatment Note
--- NOTE | 2019-05-19 15:52 | PT.OTN ---
Current Diagnoses Low back pain (05/19/19) Physical Therapy Treatment Note PT-OP-A Visit Information Start: 04/13/19 17:17 Freq: Status: Active Protocol: Document 05/19/19 15:09 EA (Rec: 05/19/19 15:13 EA [id number]) Out-Patient Physical Therapy Visit Information Visit Information Visit Type Treatment Note Visit Start Time 13:00 Visit Stop Time 13:50 Total Visit Minutes 50 Visit Number 3 PT-OP-B Current Condition Start: 04/13/19 17:17 Freq: Status: Active Protocol: Document 04/13/19 17:35 EA (Rec: 04/14/19 15:10 EA [id number]) Current Condition History of Current Condition Onset Date 1 year ago Current Complaints Chronic low back pain History of Current Condition Patient reports gradual onset of low back pain with R > L in a year duration. She reports no significant injury or back medical history. Pt reports 2 months ago it was aggravated with increased walking duration and that prompted to see her doctor and was undergone MRI. 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 Pt reports difficulty in bed mobility that requires help and as well difficulty in ambulation distance due to increased of back pain. Prior Treatments and Tests No reports of low back formal treament, OTC helps a bit. MRI last month. Future Testing and Treatments Planned None reported Treatment Goals Patient/Caregiver Goals Patient would like to get back to her usual activities such as walking more than 3 blocks on most of the days and 3 days a week of low to mod intensity stationary bike. Prior Functional Status Baseline Function- ADL's Independent Baseline Function- Mobility Independent Baseline Function- Gait Indep with no used of Device a year ago Baseline Function- Work/School Retired Baseline Function- Recreation/Hobbies Likes to walk > 3 blocks Likes to perform stationary bike > 15 mins duration Current Functional Impairments (Reported) Functional Limitations- ADL's Indepedent but requires help with cooking due to increased of pain in standing. Functional Limitations- Mobility/Gait Ambulate indep < a block with the use of AD Functional Limitations- Work/School retired Functional Limitations- Recreation/ Unable to walk outdoors Hobbies Functional Limitations- Other Unable to perform staionary bike. Personal Factors Other Personal Factors That May Effect Dizziness supine<-> sit, HTN, Therapy/Recovery CHF, depression PT-OP-C Subjective Start: 04/13/19 17:17 Freq: Status: Active Protocol: Document 05/19/19 15:09 EA (Rec: 05/19/19 15:13 EA [id number]) OP-PT Subjective Patient Comments Patient Comments My pain is musch improved since I started PT PT-OP-F Manual Assessment Start: 04/13/19 17:17 Freq: Status: Active Protocol: Document 04/13/19 17:35 EA (Rec: 04/14/19 15:10 EA [id number]) Manual Assessments Soft Tissue Assessment Soft Tissue Mobility Assessment Lumbar extensors tightness, hip flexors tightness, pectoral muscle tightness. Joint Mobility Assessment Joint Mobility Assessment Hypo lumbar joing mob. PT-OP-J Posture/Palpation/Skin Start: 04/13/19 17:17 Freq: Status: Active Protocol: Document 04/13/19 17:35 EA (Rec: 04/14/19 15:10 EA [id number]) Posture Evaluation Comments Posture Comments Fwd head, rounded shoulders, knocked knees, increased lumbar curvature with abdmominal protrusion Palpation Assessment Location One Palpation Location paralumbars, upper gluteals, QL, SI joint, lumbosacral fascia Palpation Findings Soft Tissue Tightness Tenderness PT-OP-K Range of Motion Start: 04/13/19 17:17 Freq: Status: Active Protocol: Document 04/13/19 17:35 EA (Rec: 04/14/19 15:10 EA [id number]) Lumbar Spine Range of Motion Lumbar Spine Active Percentage Testing Position Standing Flexion 70 Extension 60 Rotation Left 50 Rotation Right 50 Lateral Flexion Left 50 Lateral Flexion Right 50 ROM Limitations Soft Tissue Tightness Muscle Weakness Pain PT-OP-L Special Tests Start: 04/13/19 17:17 Freq: Status: Active Protocol: Document 04/13/19 17:35 EA (Rec: 04/14/19 15:10 EA [id number]) Special Tests Lumbar Spine Special Tests Straight Leg Raise Test Results + Hip Special Tests Piriformis Test Results R + PT-OP-M Strength Start: 04/13/19 17:17 Freq: Status: Active Protocol: Document 04/13/19 17:35 EA (Rec: 04/14/19 15:10 EA [id number]) Trunk Strength Trunk Manual Muscle Testing Testing Position supine and standing Flexion 3- Fair- Extension 4 Good Rotation Left 4 Good Rotation Right 4 Good Lateral Flexion Left 4- Good- Lateral Flexion Right 4- Good- PT-OP-Q Treatments Start: 04/13/19 17:17 Freq: Status: Active Protocol: Document 05/19/19 15:09 EA (Rec: 05/19/19 15:13 EA [id number]) Cardio Equipment Recumbent Stepper (Sci-Fit) Duration (Minutes) 7 Resistance 2 Seat Position 10 Therapeutic Exercises Supine Exercises 3 Supine Exercise Name SKTC Reps/Minutes x 30SH x 2 reps each 2 Supine Exercise Name Low trunk rotation Reps/Minutes x 10 reps 1 Supine Exercise Name PPT Reps/Minutes x 5SH x 10 reps Comments count out loud; no valsalva Sitting Exercises 1 Sitting Exercise Name Lumabrs flexion stretch Reps/Minutes x 30SH x 2 reps Comments leaning and touching the floor . Manual Therapy Treatment Soft Tissue Mobilization 1 Body Location paralumabrs; upper gluteals Mobilization Type Myofascial Release Rolling Trigger Point Release Intensity/Depth Superficial Body Position Sitting Comments leaning to the table fwd PT-OP-R Modalities Start: 04/13/19 17:17 Freq: Status: Active Protocol: Document 05/19/19 15:09 EA (Rec: 05/19/19 15:13 EA [id number]) Electric Stimulation Electric Stimulation Interferential Current (IFC) Body Location low paralumbars Duration (Minutes) 15 Intensity 25 Patient Position Sitting Combined With Heat/Cold Hot Pack PT-OP-T Assessment and Plan Start: 04/13/19 17:17 Freq: Status: Active Protocol: Document 05/19/19 15:09 EA (Rec: 05/19/19 15:13 EA [id number]) Physical Therapy Assessment Assessment Summary Assessment Pt is progressing well. Educated patient with proper bed mobility techniques as patient gets up in bed in supine with legs are lifted up which high risk for low back pain. Physical Therapy Plan Next Visit Focus/Plan Next Note Type Treatment Note
--- NOTE | 2019-05-28 14:36 | PT.OTN ---
Current Diagnoses Low back pain (05/28/19) Physical Therapy Treatment Note PT-OP-A Visit Information Start: 04/13/19 17:17 Freq: Status: Active Protocol: Document 05/28/19 14:20 EA (Rec: 05/28/19 14:26 EA [id number]) Out-Patient Physical Therapy Visit Information Visit Information Visit Type Treatment Note Visit Start Time 13:45 Visit Stop Time 14:30 Total Visit Minutes 48 Visit Number 4 PT-OP-B Current Condition Start: 04/13/19 17:17 Freq: Status: Active Protocol: Document 04/13/19 17:35 EA (Rec: 04/14/19 15:10 EA [id number]) Current Condition History of Current Condition Onset Date 1 year ago Current Complaints Chronic low back pain History of Current Condition Patient reports gradual onset of low back pain with R > L in a year duration. She reports no significant injury or back medical history. Pt reports 2 months ago it was aggravated with increased walking duration and that prompted to see her doctor and was undergone MRI. 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 Pt reports difficulty in bed mobility that requires help and as well difficulty in ambulation distance due to increased of back pain. Prior Treatments and Tests No reports of low back formal treament, OTC helps a bit. MRI last month. Future Testing and Treatments Planned None reported Treatment Goals Patient/Caregiver Goals Patient would like to get back to her usual activities such as walking more than 3 blocks on most of the days and 3 days a week of low to mod intensity stationary bike. Prior Functional Status Baseline Function- ADL's Independent Baseline Function- Mobility Independent Baseline Function- Gait Indep with no used of Device a year ago Baseline Function- Work/School Retired Baseline Function- Recreation/Hobbies Likes to walk > 3 blocks Likes to perform stationary bike > 15 mins duration Current Functional Impairments (Reported) Functional Limitations- ADL's Indepedent but requires help with cooking due to increased of pain in standing. Functional Limitations- Mobility/Gait Ambulate indep < a block with the use of AD Functional Limitations- Work/School retired Functional Limitations- Recreation/ Unable to walk outdoors Hobbies Functional Limitations- Other Unable to perform staionary bike. Personal Factors Other Personal Factors That May Effect Dizziness supine<-> sit, HTN, Therapy/Recovery CHF, depression PT-OP-C Subjective Start: 04/13/19 17:17 Freq: Status: Active Protocol: Document 05/28/19 14:20 EA (Rec: 05/28/19 14:26 EA [id number]) OP-PT Subjective Patient Comments Patient Comments Pt reports low back pain is less frequent until this week due to company at home where she has to do a lot of activities. Patient Reported Progress Improving PT-OP-F Manual Assessment Start: 04/13/19 17:17 Freq: Status: Active Protocol: Document 04/13/19 17:35 EA (Rec: 04/14/19 15:10 EA [id number]) Manual Assessments Soft Tissue Assessment Soft Tissue Mobility Assessment Lumbar extensors tightness, hip flexors tightness, pectoral muscle tightness. Joint Mobility Assessment Joint Mobility Assessment Hypo lumbar joing mob. PT-OP-J Posture/Palpation/Skin Start: 04/13/19 17:17 Freq: Status: Active Protocol: Document 04/13/19 17:35 EA (Rec: 04/14/19 15:10 EA [id number]) Posture Evaluation Comments Posture Comments Fwd head, rounded shoulders, knocked knees, increased lumbar curvature with abdmominal protrusion Palpation Assessment Location One Palpation Location paralumbars, upper gluteals, QL, SI joint, lumbosacral fascia Palpation Findings Soft Tissue Tightness, Tenderness PT-OP-K Range of Motion Start: 04/13/19 17:17 Freq: Status: Active Protocol: Document 04/13/19 17:35 EA (Rec: 04/14/19 15:10 EA [id number]) Lumbar Spine Range of Motion Lumbar Spine Active Percentage Testing Position Standing Flexion 70 Extension 60 Rotation Left 50 Rotation Right 50 Lateral Flexion Left 50 Lateral Flexion Right 50 ROM Limitations Soft Tissue Tightness,Muscle Weakness,Pain PT-OP-L Special Tests Start: 04/13/19 17:17 Freq: Status: Active Protocol: Document 04/13/19 17:35 EA (Rec: 04/14/19 15:10 EA [id number]) Special Tests Lumbar Spine Special Tests Straight Leg Raise Test Results + Hip Special Tests Piriformis Test Results R + PT-OP-M Strength Start: 04/13/19 17:17 Freq: Status: Active Protocol: Document 04/13/19 17:35 EA (Rec: 04/14/19 15:10 EA [id number]) Trunk Strength Trunk Manual Muscle Testing Testing Position supine and standing Flexion 3- Fair- Extension 4 Good Rotation Left 4 Good Rotation Right 4 Good Lateral Flexion Left 4- Good- Lateral Flexion Right 4- Good- PT-OP-Q Treatments Start: 04/13/19 17:17 Freq: Status: Active Protocol: Document 05/28/19 14:20 EA (Rec: 05/28/19 14:26 EA [id number]) Cardio Equipment Recumbent Stepper (Sci-Fit) Duration (Minutes) 7 Resistance 2.5 Seat Position 10 Therapeutic Exercises Supine Exercises 2 Supine Exercise Name Low trunk rotation Reps/Minutes x 10 reps 1 Supine Exercise Name PPT Reps/Minutes x 5SH x 10 reps Comments count out loud; no valsalva Sitting Exercises 1 Sitting Exercise Name Fwd bending; bending with rotation, SF Reps/Minutes x 30SH x 2 reps Comments leaning and touching the floor . Manual Therapy Treatment Soft Tissue Mobilization 1 Body Location paralumabrs; upper gluteals Mobilization Type Myofascial Release,Rolling, Trigger Point Release Intensity/Depth Deep Body Position Sitting Comments leaning to the table fwd PT-OP-R Modalities Start: 04/13/19 17:17 Freq: Status: Active Protocol: Document 05/28/19 14:20 EA (Rec: 05/28/19 14:26 EA [id number]) Electric Stimulation Electric Stimulation Interferential Current (IFC) Body Location low paralumbars Duration (Minutes) 15 Intensity 25 Patient Position Sitting Combined With Heat/Cold Hot Pack PT-OP-T Assessment and Plan Start: 04/13/19 17:17 Freq: Status: Active Protocol: Document 05/28/19 14:20 EA (Rec: 05/28/19 14:26 EA [id number]) Physical Therapy Assessment Assessment Summary Assessment Pt has less right lumbar and gluteal tenderness at this time. Patient is progressing well. Cont. sitted lumbar mobility exercises Physical Therapy Plan Next Visit Focus/Plan Next Note Type Treatment Note
--- NOTE | 2019-06-02 17:39 | PT.OTN ---
Current Diagnoses Low back pain (06/02/19) Physical Therapy Treatment Note PT-OP-A Visit Information Start: 04/13/19 17:17 Freq: Status: Active Protocol: Document 06/02/19 17:29 [facility] (Rec: 06/02/19 17:38 [facility] [email or web address]) Out-Patient Physical Therapy Visit Information Visit Information Visit Type Treatment Note Visit Start Time 15:15 Visit Stop Time 16:10 Total Visit Minutes 55 Visit Number 5 PT-OP-B Current Condition Start: 04/13/19 17:17 Freq: Status: Active Protocol: Document 04/13/19 17:35 EA (Rec: 04/14/19 15:10 EA [id number]) Current Condition History of Current Condition Onset Date 1 year ago Current Complaints Chronic low back pain History of Current Condition Patient reports gradual onset of low back pain with R > L in a year duration. She reports no significant injury or back medical history. Pt reports 2 months ago it was aggravated with increased walking duration and that prompted to see her doctor and was undergone MRI. 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 Pt reports difficulty in bed mobility that requires help and as well difficulty in ambulation distance due to increased of back pain. Prior Treatments and Tests No reports of low back formal treament, OTC helps a bit. MRI last month. Future Testing and Treatments Planned None reported Treatment Goals Patient/Caregiver Goals Patient would like to get back to her usual activities such as walking more than 3 blocks on most of the days and 3 days a week of low to mod intensity stationary bike. Prior Functional Status Baseline Function- ADL's Independent Baseline Function- Mobility Independent Baseline Function- Gait Indep with no used of Device a year ago Baseline Function- Work/School Retired Baseline Function- Recreation/Hobbies Likes to walk > 3 blocks Likes to perform stationary bike > 15 mins duration Current Functional Impairments (Reported) Functional Limitations- ADL's Indepedent but requires help with cooking due to increased of pain in standing. Functional Limitations- Mobility/Gait Ambulate indep < a block with the use of AD Functional Limitations- Work/School retired Functional Limitations- Recreation/ Unable to walk outdoors Hobbies Functional Limitations- Other Unable to perform staionary bike. Personal Factors Other Personal Factors That May Effect Dizziness supine<-> sit, HTN, Therapy/Recovery CHF, depression PT-OP-C Subjective Start: 04/13/19 17:17 Freq: Status: Active Protocol: Document 06/02/19 17:29 [facility] (Rec: 06/02/19 17:38 [facility] [email or web address]) OP-PT Subjective Patient Comments Patient Comments pt reports there is a lot of stress in her life right now and this affects her low back PT-OP-F Manual Assessment Start: 04/13/19 17:17 Freq: Status: Active Protocol: Document 04/13/19 17:35 EA (Rec: 04/14/19 15:10 EA [id number]) Manual Assessments Soft Tissue Assessment Soft Tissue Mobility Assessment Lumbar extensors tightness, hip flexors tightness, pectoral muscle tightness. Joint Mobility Assessment Joint Mobility Assessment Hypo lumbar joing mob. PT-OP-J Posture/Palpation/Skin Start: 04/13/19 17:17 Freq: Status: Active Protocol: Document 04/13/19 17:35 EA (Rec: 04/14/19 15:10 EA [id number]) Posture Evaluation Comments Posture Comments Fwd head, rounded shoulders, knocked knees, increased lumbar curvature with abdmominal protrusion Palpation Assessment Location One Palpation Location paralumbars, upper gluteals, QL, SI joint, lumbosacral fascia Palpation Findings Soft Tissue Tightness, Tenderness PT-OP-K Range of Motion Start: 04/13/19 17:17 Freq: Status: Active Protocol: Document 04/13/19 17:35 EA (Rec: 04/14/19 15:10 EA [id number]) Lumbar Spine Range of Motion Lumbar Spine Active Percentage Testing Position Standing Flexion 70 Extension 60 Rotation Left 50 Rotation Right 50 Lateral Flexion Left 50 Lateral Flexion Right 50 ROM Limitations Soft Tissue Tightness,Muscle Weakness,Pain PT-OP-L Special Tests Start: 04/13/19 17:17 Freq: Status: Active Protocol: Document 04/13/19 17:35 EA (Rec: 04/14/19 15:10 EA [id number]) Special Tests Lumbar Spine Special Tests Straight Leg Raise Test Results + Hip Special Tests Piriformis Test Results R + PT-OP-M Strength Start: 04/13/19 17:17 Freq: Status: Active Protocol: Document 04/13/19 17:35 EA (Rec: 04/14/19 15:10 EA [id number]) Trunk Strength Trunk Manual Muscle Testing Testing Position supine and standing Flexion 3- Fair- Extension 4 Good Rotation Left 4 Good Rotation Right 4 Good Lateral Flexion Left 4- Good- Lateral Flexion Right 4- Good- PT-OP-Q Treatments Start: 04/13/19 17:17 Freq: Status: Active Protocol: Document 06/02/19 17:29 [facility] (Rec: 06/02/19 17:38 [facility] [email or web address]) Therapeutic Exercises Supine Exercises 9 Supine Exercise Name pelvic floor isolations, TA isolations Reps/Minutes 5 x 5 second holds 8 Supine Exercise Name hamstring stretch 7 Supine Exercise Name piriformis stretch Comments figure 4 6 Supine Exercise Name bridges with ball squeeze Reps/Minutes x 10 reps 5 Supine Exercise Name roll outs with level 2 theraband Reps/Minutes 3 x 10 reps Comments in hooklying position 4 Supine Exercise Name ball squeeze with pelvic floor contraction Reps/Minutes 5 sec hold x 10 reps 3 Supine Exercise Name SKTC Reps/Minutes x 30SH x 2 reps each 2 Supine Exercise Name Low trunk rotation Reps/Minutes x 10 reps Sitting Exercises 1 Sitting Exercise Name Fwd bending; bending with rotation, SF Reps/Minutes x 30SH x 2 reps Comments leaning and touching the floor . PT-OP-R Modalities Start: 04/13/19 17:17 Freq: Status: Active Protocol: Document 06/02/19 17:29 [facility] (Rec: 06/02/19 17:38 [facility] [email or web address]) Hot Pack/Cold Pack Treatment Hot Pack Location low back and neck Patient Position Hooklying Treatment Duration (minutes) 12 PT-OP-T Assessment and Plan Start: 04/13/19 17:17 Freq: Status: Active Protocol: Document 06/02/19 17:29 [facility] (Rec: 06/02/19 17:38 [facility] [email or web address]) Physical Therapy Assessment Assessment Summary Assessment added in some pelvic floor stabilization exercises as Naty mentioned she was having urgency and incontinence. Her neck was very stiff today so seated forward bends were difficult Physical Therapy Plan Next Visit Focus/Plan Next Note Type Treatment Note Next Visit Plan work on increasing core stability and continue with lumbar ROM exercises
--- NOTE | 2019-06-30 19:09 | PT.OTRE ---
Current Diagnoses Low back pain (06/30/19) Visit Care Team Role Provider Type Naty Heart MD Attending Provider Physician Primary Care Provider Specialty: Internal Medicine Address: [address] [place] [address], [id number] Email: [email or web address] Physical Therapy Re-Evaluation PT-OP-A Visit Information Start: 04/13/19 17:17 Freq: Status: Active Protocol: Document 06/30/19 14:32 HH (Rec: 06/30/19 19:08 HH [email or web address]) Out-Patient Physical Therapy Visit Information Visit Information Visit Type Re-Evaluation Visit Note Pt's last visit is 06/02 due to ongoing flu and recent fall. Visit Start Time 14:32 Visit Stop Time 15:20 Total Visit Minutes 38 Visit Number 6 Number of INSTRUMENTATION INSTRUCTOR Visits 0 PT-OP-B Current Condition Start: 04/13/19 17:17 Freq: Status: Active Protocol: Document 04/13/19 17:35 EA (Rec: 04/14/19 15:10 EA [id number]) Current Condition History of Current Condition Onset Date 1 year ago Current Complaints Chronic low back pain History of Current Condition Patient reports gradual onset of low back pain with R > L in a year duration. She reports no significant injury or back medical history. Pt reports 2 months ago it was aggravated with increased walking duration and that prompted to see her doctor and was undergone MRI. 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 Pt reports difficulty in bed mobility that requires help and as well difficulty in ambulation distance due to increased of back pain. Prior Treatments and Tests No reports of low back formal treament, OTC helps a bit. MRI last month. Future Testing and Treatments Planned None reported Treatment Goals Patient/Caregiver Goals Patient would like to get back to her usual activities such as walking more than 3 blocks on most of the days and 3 days a week of low to mod intensity stationary bike. Prior Functional Status Baseline Function- ADL's Independent Baseline Function- Mobility Independent Baseline Function- Gait Indep with no used of Device a year ago Baseline Function- Work/School Retired Baseline Function- Recreation/Hobbies Likes to walk > 3 blocks Likes to perform stationary bike > 15 mins duration Current Functional Impairments (Reported) Functional Limitations- ADL's Indepedent but requires help with cooking due to increased of pain in standing. Functional Limitations- Mobility/Gait Ambulate indep < a block with the use of AD Functional Limitations- Work/School retired Functional Limitations- Recreation/ Unable to walk outdoors Hobbies Functional Limitations- Other Unable to perform staionary bike. Personal Factors Other Personal Factors That May Effect Dizziness supine<-> sit, HTN, Therapy/Recovery CHF, depression PT-OP-C Subjective Start: 04/13/19 17:17 Freq: Status: Active Protocol: Document 06/30/19 14:32 HH (Rec: 06/30/19 19:08 HH [email or web address]) OP-PT Subjective Patient Comments Patient Comments Pt had a recent flu since early May and a fall few days. She hasnt been active lately and wonder if she should cont PT. PT-OP-F Manual Assessment Start: 04/13/19 17:17 Freq: Status: Active Protocol: Document 04/13/19 17:35 EA (Rec: 04/14/19 15:10 EA [id number]) Manual Assessments Soft Tissue Assessment Soft Tissue Mobility Assessment Lumbar extensors tightness, hip flexors tightness, pectoral muscle tightness. Joint Mobility Assessment Joint Mobility Assessment Hypo lumbar joing mob. PT-OP-J Posture/Palpation/Skin Start: 04/13/19 17:17 Freq: Status: Active Protocol: Document 04/13/19 17:35 EA (Rec: 04/14/19 15:10 EA [id number]) Posture Evaluation Comments Posture Comments Fwd head, rounded shoulders, knocked knees, increased lumbar curvature with abdmominal protrusion Palpation Assessment Location One Palpation Location paralumbars, upper gluteals, QL, SI joint, lumbosacral fascia Palpation Findings Soft Tissue Tightness, Tenderness PT-OP-K Range of Motion Start: 04/13/19 17:17 Freq: Status: Active Protocol: Document 04/13/19 17:35 EA (Rec: 04/14/19 15:10 EA [id number]) Lumbar Spine Range of Motion Lumbar Spine Active Percentage Testing Position Standing Flexion 70 Extension 60 Rotation Left 50 Rotation Right 50 Lateral Flexion Left 50 Lateral Flexion Right 50 ROM Limitations Soft Tissue Tightness,Muscle Weakness,Pain PT-OP-L Special Tests Start: 04/13/19 17:17 Freq: Status: Active Protocol: Document 04/13/19 17:35 EA (Rec: 04/14/19 15:10 EA [id number]) Special Tests Lumbar Spine Special Tests Straight Leg Raise Test Results + Hip Special Tests Piriformis Test Results R + PT-OP-M Strength Start: 04/13/19 17:17 Freq: Status: Active Protocol: Document 04/13/19 17:35 EA (Rec: 04/14/19 15:10 EA [id number]) Trunk Strength Trunk Manual Muscle Testing Testing Position supine and standing Flexion 3- Fair- Extension 4 Good Rotation Left 4 Good Rotation Right 4 Good Lateral Flexion Left 4- Good- Lateral Flexion Right 4- Good- PT-OP-Q Treatments Start: 04/13/19 17:17 Freq: Status: Active Protocol: Document 06/30/19 14:32 HH (Rec: 06/30/19 19:08 HH [email or web address]) Cardio Equipment Recumbent Stepper (Sci-Fit) Duration (Minutes) 5 Resistance 2.5 Seat Position 10 Therapeutic Exercises Supine Exercises 9 Supine Exercise Name pelvic floor isolations, TA isolations Reps/Minutes 5 x 5 second holds 6 Supine Exercise Name bridges with ball squeeze Reps/Minutes x 10 reps 5 Supine Exercise Name roll outs with level 2 theraband Reps/Minutes 3 x 10 reps Comments in hooklying position 4 Supine Exercise Name ball squeeze with pelvic floor contraction Reps/Minutes 5 sec hold x 10 reps 2 Supine Exercise Name Low trunk rotation Reps/Minutes x 10 reps 1 Supine Exercise Name PPT Reps/Minutes x 5SH x 10 reps Comments count out loud; no valsalva Therapeutic Activity Therapeutic Activity supine to sit Name log roll and SL to sit Reps/Minutes 5 times Comments without assist cues on side push up PT-OP-R Modalities Start: 04/13/19 17:17 Freq: Status: Active Protocol: Document 06/02/19 17:29 [facility] (Rec: 06/02/19 17:38 [facility] [email or web address]) Hot Pack/Cold Pack Treatment Hot Pack Location low back and neck Patient Position Hooklying Treatment Duration (minutes) 12 PT-OP-T Assessment and Plan Start: 04/13/19 17:17 Freq: Status: Active Protocol: Document 06/30/19 14:32 HH (Rec: 06/30/19 19:08 HH [email or web address]) Physical Therapy Assessment Goals Five Impairment Min A with bed mobility Detention Goal (LTG) 06/30 : Pt perform supine to sit with log roll method with CGA Pt will perform supine to sit with log roll independently. LTG Duration 4 weeks Four Impairment unable to walk more than 3 blocks Detention Goal (LTG) Pt will amb with no AD on even surfaces > 3 blocks a day LTG Duration 8 weeks Three Impairment Unable to use stationary bike more than 10 mins Coder Goal (LTG) 06/30 pt is able to do 5 mins at a time Pt will use her stationary bike more than > 10 mins with no increased of back symptoms LTG Duration 8 weeks Two Impairment Oswetry score of 25/50 Detention Goal (LTG) Pt will score <15/50 to enhance daily functiona/ ADL LTG Duration 8 weeks One Impairment Pt is not compliance to HEP Coder Goal (LTG) Pt will exhibited indep HEP and improve body mechanics. LTG Duration 4 weeks Progress Towards Goals Progress Towards Goals Slow Progress due to Activity Tolerance,Slow Progress due to Attendance Issues,Slow Progress due to Medical Issues Assessment Summary Assessment Pt has not seen PT for a month due to recent flu and a fall from few days ago. Pt appears at baseline upno assessment but with c/o general muscle ache on arms and legs. Pt kelsey tx well today with focus on core stabilization and mobility in supine position. Educated pt on log roll method and she was able to perform it with CGA x 5 afterwards. Physical Therapy Plan Frequency and Duration Frequency of Treatment 2x/Week Duration of Treatment 8 weeks Plan of Care Start Date 06/30/19 Plan of Care End Date 08/29/19 Therapeutic Interventions Therapeutic Interventions Balance Training,Gait Training ,Home Exercise Program,Joint Mobilizations,Manual Therapy, Neuromuscular Re-education, Patient/Caregiver Education, Self-Care/Home Management,Soft Tissue Mobilization,Taping, Therapeutic Activities, Therapeutic Exercises Modalities Cold Pack/Ice Massage,Electric Stimulation,Hot Packs, Infrared Therapy,Traction- Mechanical,Ultrasound Next Visit Focus/Plan Next Note Type Treatment Note Next Visit Plan reassess pt's tolerance work on increasing core stability and continue with lumbar ROM exercises add american ball roll
--- NOTE | 2019-06-30 19:09 | PT.OPPOC ---
Current Diagnoses Low back pain (06/30/19) Visit Care Team Role Provider Type Naty Heart MD Attending Provider Physician Primary Care Provider Specialty: Internal Medicine Address: [address] [place] [address], [id number] Email: [email or web address] Plan Of Care PT-OP-T Assessment and Plan Start: 04/13/19 17:17 Freq: Status: Active Protocol: Document 06/30/19 14:32 HH (Rec: 06/30/19 19:08 [email or web address]) Physical Therapy Assessment Goals Five Impairment Min A with bed mobility [facility] Goal (LTG) 06/30 : Pt perform supine to sit with log roll method with CGA Pt will perform supine to sit with log roll independently. LTG Duration 4 weeks Four Impairment unable to walk more than 3 blocks Art Director Goal (LTG) Pt will amb with no AD on even surfaces > 3 blocks a day LTG Duration 8 weeks Three Impairment Unable to use stationary bike more than 10 mins [facility] Goal (LTG) 06/30 pt is able to do 5 mins at a time Pt will use her stationary bike more than > 10 mins with no increased of back symptoms LTG Duration 8 weeks Two Impairment Oswetry score of 25/50 Art Director Goal (LTG) Pt will score <15/50 to enhance daily functiona/ ADL LTG Duration 8 weeks One Impairment Pt is not compliance to HEP [facility] Goal (LTG) Pt will exhibited indep HEP and improve body mechanics. LTG Duration 4 weeks Progress Towards Goals Progress Towards Goals Slow Progress due to Activity Tolerance,Slow Progress due to Attendance Issues,Slow Progress due to Medical Issues Assessment Summary Assessment Pt has not seen PT for a month due to recent flu and a fall from few days ago. Pt appears at baseline upno assessment but with c/o general muscle ache on arms and legs. Pt kelsey tx well today with focus on core stabilization and mobility in supine position. Educated pt on log roll method and she was able to perform it with CGA x 5 afterwards. Physical Therapy Plan Frequency and Duration Frequency of Treatment 2x/Week Duration of Treatment 8 weeks Plan of Care Start Date 06/30/19 Plan of Care End Date 08/29/19 Therapeutic Interventions Therapeutic Interventions Balance Training,Gait Training ,Home Exercise Program,Joint Mobilizations,Manual Therapy, Neuromuscular Re-education, Patient/Caregiver Education, Self-Care/Home Management,Soft Tissue Mobilization,Taping, Therapeutic Activities, Therapeutic Exercises Modalities Cold Pack/Ice Massage,Electric Stimulation,Hot Packs, Infrared Therapy,Traction- Mechanical,Ultrasound Next Visit Focus/Plan Next Note Type Treatment Note Next Visit Plan reassess pt's tolerance work on increasing core stability and continue with lumbar ROM exercises add indian ball roll Plan of Care Dates Plan of Care Start Date 06/30/19 Plan of Care End Date 08/29/19
--- NOTE | 2019-07-02 15:18 | PT.OTN ---
Current Diagnoses Low back pain (07/02/19) Physical Therapy Treatment Note PT-OP-A Visit Information Start: 04/13/19 17:17 Freq: Status: Active Protocol: Document 07/02/19 14:30 HH (Rec: 07/02/19 15:18 HH [email or web address]) Out-Patient Physical Therapy Visit Information Visit Information Visit Type Treatment Note Visit Start Time 14:30 Visit Stop Time 15:15 Total Visit Minutes 45 Visit Number 7 Number of HOMOGENIZER OPERATOR Visits 0 PT-OP-B Current Condition Start: 04/13/19 17:17 Freq: Status: Active Protocol: Document 04/13/19 17:35 EA (Rec: 04/14/19 15:10 EA [id number]) Current Condition History of Current Condition Onset Date 1 year ago Current Complaints Chronic low back pain History of Current Condition Patient reports gradual onset of low back pain with R > L in a year duration. She reports no significant injury or back medical history. Pt reports 2 months ago it was aggravated with increased walking duration and that prompted to see her doctor and was undergone MRI. 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 Pt reports difficulty in bed mobility that requires help and as well difficulty in ambulation distance due to increased of back pain. Prior Treatments and Tests No reports of low back formal treament, OTC helps a bit. MRI last month. Future Testing and Treatments Planned None reported Treatment Goals Patient/Caregiver Goals Patient would like to get back to her usual activities such as walking more than 3 blocks on most of the days and 3 days a week of low to mod intensity stationary bike. Prior Functional Status Baseline Function- ADL's Independent Baseline Function- Mobility Independent Baseline Function- Gait Indep with no used of Device a year ago Baseline Function- Work/School Retired Baseline Function- Recreation/Hobbies Likes to walk > 3 blocks Likes to perform stationary bike > 15 mins duration Current Functional Impairments (Reported) Functional Limitations- ADL's Indepedent but requires help with cooking due to increased of pain in standing. Functional Limitations- Mobility/Gait Ambulate indep < a block with the use of AD Functional Limitations- Work/School retired Functional Limitations- Recreation/ Unable to walk outdoors Hobbies Functional Limitations- Other Unable to perform staionary bike. Personal Factors Other Personal Factors That May Effect Dizziness supine<-> sit, HTN, Therapy/Recovery CHF, depression PT-OP-C Subjective Start: 04/13/19 17:17 Freq: Status: Active Protocol: Document 07/02/19 14:30 HH (Rec: 07/02/19 15:18 HH [email or web address]) OP-PT Subjective Patient Comments Patient Comments pt stated she got sore after last visit. But she did walk for couple blocks yesterday and didnt bother her as much. Also stated it's getting easier for supine to sit using log roll method. PT-OP-F Manual Assessment Start: 04/13/19 17:17 Freq: Status: Active Protocol: Document 04/13/19 17:35 EA (Rec: 04/14/19 15:10 EA [id number]) Manual Assessments Soft Tissue Assessment Soft Tissue Mobility Assessment Lumbar extensors tightness, hip flexors tightness, pectoral muscle tightness. Joint Mobility Assessment Joint Mobility Assessment Hypo lumbar joing mob. PT-OP-J Posture/Palpation/Skin Start: 04/13/19 17:17 Freq: Status: Active Protocol: Document 04/13/19 17:35 EA (Rec: 04/14/19 15:10 EA [id number]) Posture Evaluation Comments Posture Comments Fwd head, rounded shoulders, knocked knees, increased lumbar curvature with abdmominal protrusion Palpation Assessment Location One Palpation Location paralumbars, upper gluteals, QL, SI joint, lumbosacral fascia Palpation Findings Soft Tissue Tightness, Tenderness PT-OP-K Range of Motion Start: 04/13/19 17:17 Freq: Status: Active Protocol: Document 04/13/19 17:35 EA (Rec: 04/14/19 15:10 EA [id number]) Lumbar Spine Range of Motion Lumbar Spine Active Percentage Testing Position Standing Flexion 70 Extension 60 Rotation Left 50 Rotation Right 50 Lateral Flexion Left 50 Lateral Flexion Right 50 ROM Limitations Soft Tissue Tightness,Muscle Weakness,Pain PT-OP-L Special Tests Start: 04/13/19 17:17 Freq: Status: Active Protocol: Document 04/13/19 17:35 EA (Rec: 04/14/19 15:10 EA [id number]) Special Tests Lumbar Spine Special Tests Straight Leg Raise Test Results + Hip Special Tests Piriformis Test Results R + PT-OP-M Strength Start: 04/13/19 17:17 Freq: Status: Active Protocol: Document 04/13/19 17:35 EA (Rec: 04/14/19 15:10 EA [id number]) Trunk Strength Trunk Manual Muscle Testing Testing Position supine and standing Flexion 3- Fair- Extension 4 Good Rotation Left 4 Good Rotation Right 4 Good Lateral Flexion Left 4- Good- Lateral Flexion Right 4- Good- PT-OP-Q Treatments Start: 04/13/19 17:17 Freq: Status: Active Protocol: Document 07/02/19 14:30 HH (Rec: 07/02/19 15:18 HH [email or web address]) Cardio Equipment Recumbent Stepper (Sci-Fit) Duration (Minutes) 5 Resistance 2.5 Seat Position 10 Treadmill Duration (Minutes) 3 Speed 1.2 Incline 0 Therapeutic Exercises Supine Exercises 9 Supine Exercise Name pelvic floor isolations, TA isolations Reps/Minutes 5 x 5 second holds 8 Supine Exercise Name hamstring stretch 7 Supine Exercise Name piriformis stretch Comments figure 4 6 Supine Exercise Name bridges with ball squeeze Reps/Minutes 3 secs hold x 10 reps 4 Supine Exercise Name ball squeeze with pelvic floor contraction Reps/Minutes 5 sec hold x 10 reps 2 Supine Exercise Name Low trunk rotation Reps/Minutes x 10 reps x2 1 Supine Exercise Name PPT Reps/Minutes x 5SH x 10 reps Comments count out loud; no valsalva Sitting Exercises ball roll Sitting Exercise Name foward and sideways Equipment Used norwegian ball roll Reps/Minutes 10 x 4 Manual Therapy Treatment Soft Tissue Mobilization 1 Body Location piriformis Mobilization Type Cross-Friction,Sustained Pressure,Trigger Point Release Intensity/Depth Moderate Body Position Sidelying Joint Mobilizations L hip distraction Direction inferior Grade III Body Position Supine PT-OP-R Modalities Start: 04/13/19 17:17 Freq: Status: Active Protocol: Document 07/02/19 14:30 HH (Rec: 07/02/19 15:18 HH [email or web address]) Hot Pack/Cold Pack Treatment Hot Pack Location low back and neck Patient Position Hooklying Treatment Duration (minutes) 10 PT-OP-T Assessment and Plan Start: 04/13/19 17:17 Freq: Status: Active Protocol: Document 07/02/19 14:30 HH (Rec: 07/02/19 15:18 HH [email or web address]) Physical Therapy Assessment Goals Five Impairment Min A with bed mobility Equal Opportunity Assistant Goal (LTG) 06/30 : Pt perform supine to sit with log roll method with CGA Pt will perform supine to sit with log roll independently. LTG Duration 4 weeks Four Impairment unable to walk more than 3 blocks [facility] Goal (LTG) Pt will amb with no AD on even surfaces > 3 blocks a day LTG Duration 8 weeks Three Impairment Unable to use stationary bike more than 10 mins [facility] Goal (LTG) 10/1 pt is able to do 5 mins at a time Pt will use her stationary bike more than > 10 mins with no increased of back symptoms LTG Duration 8 weeks Two Impairment Oswetry score of 25/50 [facility] Goal (LTG) Pt will score <15/50 to enhance daily functiona/ ADL LTG Duration 8 weeks One Impairment Pt is not compliance to HEP Equal Opportunity Assistant Goal (LTG) Pt will exhibited indep HEP and improve body mechanics. LTG Duration 4 weeks Assessment Summary Assessment Pt is able to perform log roll for supine to sit independently now. Pt reports of overall soreness after last visit but shes been trying to be more active. Will add walking program for each visit . Pt had good control on gluteal engagement at supine for PPT, but he lumbar spine has very poor mobility. Added norwegian ball roll today as well. Pt kelsey tx well without c/o. Physical Therapy Plan Next Visit Focus/Plan Next Note Type Treatment Note Next Visit Plan seated pelvic tilt seated lumbar movements. reassess pt's tolerance work on increasing core stability and continue with lumbar ROM exercises add norwegian ball roll
--- NOTE | 2019-07-07 15:21 | PT.OTN ---
Current Diagnoses Low back pain (07/07/19) Physical Therapy Treatment Note PT-OP-A Visit Information Start: 04/13/19 17:17 Freq: Status: Active Protocol: Document 07/07/19 14:32 HH (Rec: 07/07/19 15:21 HH [email or web address]) Out-Patient Physical Therapy Visit Information Visit Information Visit Type Treatment Note Visit Start Time 14:32 Visit Stop Time 15:15 Total Visit Minutes 43 Visit Number 8 Number of DIRECTOR OF RESTAURANT OPERATIONS Visits 0 PT-OP-B Current Condition Start: 04/13/19 17:17 Freq: Status: Active Protocol: Document 04/13/19 17:35 EA (Rec: 04/14/19 15:10 EA [id number]) Current Condition History of Current Condition Onset Date 1 year ago Current Complaints Chronic low back pain History of Current Condition Patient reports gradual onset of low back pain with R > L in a year duration. She reports no significant injury or back medical history. Pt reports 2 months ago it was aggravated with increased walking duration and that prompted to see her doctor and was undergone MRI. 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 Pt reports difficulty in bed mobility that requires help and as well difficulty in ambulation distance due to increased of back pain. Prior Treatments and Tests No reports of low back formal treament, OTC helps a bit. MRI last month. Future Testing and Treatments Planned None reported Treatment Goals Patient/Caregiver Goals Patient would like to get back to her usual activities such as walking more than 3 blocks on most of the days and 3 days a week of low to mod intensity stationary bike. Prior Functional Status Baseline Function- ADL's Independent Baseline Function- Mobility Independent Baseline Function- Gait Indep with no used of Device a year ago Baseline Function- Work/School Retired Baseline Function- Recreation/Hobbies Likes to walk > 3 blocks Likes to perform stationary bike > 15 mins duration Current Functional Impairments (Reported) Functional Limitations- ADL's Indepedent but requires help with cooking due to increased of pain in standing. Functional Limitations- Mobility/Gait Ambulate indep < a block with the use of AD Functional Limitations- Work/School retired Functional Limitations- Recreation/ Unable to walk outdoors Hobbies Functional Limitations- Other Unable to perform staionary bike. Personal Factors Other Personal Factors That May Effect Dizziness supine<-> sit, HTN, Therapy/Recovery CHF, depression PT-OP-C Subjective Start: 04/13/19 17:17 Freq: Status: Active Protocol: Document 07/07/19 14:32 HH (Rec: 07/07/19 15:21 HH [email or web address]) OP-PT Subjective Patient Comments Patient Comments I am doing better and walked more too. I walked 1.5 miles the other day and i felt fine. My back doesnt hurt as much. Patient Reported Progress Improving PT-OP-F Manual Assessment Start: 04/13/19 17:17 Freq: Status: Active Protocol: Document 04/13/19 17:35 EA (Rec: 04/14/19 15:10 EA [id number]) Manual Assessments Soft Tissue Assessment Soft Tissue Mobility Assessment Lumbar extensors tightness, hip flexors tightness, pectoral muscle tightness. Joint Mobility Assessment Joint Mobility Assessment Hypo lumbar joing mob. PT-OP-J Posture/Palpation/Skin Start: 04/13/19 17:17 Freq: Status: Active Protocol: Document 04/13/19 17:35 EA (Rec: 04/14/19 15:10 EA [id number]) Posture Evaluation Comments Posture Comments Fwd head, rounded shoulders, knocked knees, increased lumbar curvature with abdmominal protrusion Palpation Assessment Location One Palpation Location paralumbars, upper gluteals, QL, SI joint, lumbosacral fascia Palpation Findings Soft Tissue Tightness, Tenderness PT-OP-K Range of Motion Start: 04/13/19 17:17 Freq: Status: Active Protocol: Document 04/13/19 17:35 EA (Rec: 04/14/19 15:10 EA [id number]) Lumbar Spine Range of Motion Lumbar Spine Active Percentage Testing Position Standing Flexion 70 Extension 60 Rotation Left 50 Rotation Right 50 Lateral Flexion Left 50 Lateral Flexion Right 50 ROM Limitations Soft Tissue Tightness,Muscle Weakness,Pain PT-OP-L Special Tests Start: 04/13/19 17:17 Freq: Status: Active Protocol: Document 04/13/19 17:35 EA (Rec: 04/14/19 15:10 EA [id number]) Special Tests Lumbar Spine Special Tests Straight Leg Raise Test Results + Hip Special Tests Piriformis Test Results R + PT-OP-M Strength Start: 04/13/19 17:17 Freq: Status: Active Protocol: Document 04/13/19 17:35 EA (Rec: 04/14/19 15:10 EA [id number]) Trunk Strength Trunk Manual Muscle Testing Testing Position supine and standing Flexion 3- Fair- Extension 4 Good Rotation Left 4 Good Rotation Right 4 Good Lateral Flexion Left 4- Good- Lateral Flexion Right 4- Good- PT-OP-Q Treatments Start: 04/13/19 17:17 Freq: Status: Active Protocol: Document 07/07/19 14:32 (Rec: 07/07/19 15:21 [email or web address]) Cardio Equipment Recumbent Bicycle Duration (Minutes) 5 Resistance 2 Treadmill Duration (Minutes) 5 Speed 1.2 Gym Equipment Shuttle Rebound B squat Reps/Duration #50 Comments 12 x 2 Therapeutic Exercises Supine Exercises 6 Supine Exercise Name bridges with ball squeeze Reps/Minutes 3 secs hold x 10 reps 2 Supine Exercise Name Low trunk rotation Reps/Minutes x 10 reps x2 Sitting Exercises ball roll Sitting Exercise Name foward and sideways Equipment Used [place] islander ball roll Reps/Minutes 10 x 4 Standing Exercises hurdles Standing Exercise Name within //bar Side bilateral Equipment Used hurdles Comments cues on maintaining even hip level Therapeutic Activity Therapeutic Activity stair climbing Name 4' step Reps/Minutes 4 rounds Comments without UE CGA supine to sit Name log roll and SL to sit Reps/Minutes 4 Comments without assist cues on side push up PT-OP-R Modalities Start: 04/13/19 17:17 Freq: Status: Active Protocol: Document 07/07/19 14:32 (Rec: 07/07/19 15:21 [email or web address]) Hot Pack/Cold Pack Treatment Hot Pack Location low back and neck Patient Position Hooklying Treatment Duration (minutes) 8 PT-OP-T Assessment and Plan Start: 04/13/19 17:17 Freq: Status: Active Protocol: Document 07/07/19 14:32 (Rec: 07/07/19 15:21 [email or web address]) Physical Therapy Assessment Goals steps climbing Impairment Pt climbs her steps with B UE support [facility] Goal (LTG) Pt will improve her single leg balance and strength so she can climb her steps x3 without UE support. LTG Duration 4 weeks Five Impairment Min A with bed mobility [facility] Goal (LTG) 06/30 : Pt perform supine to sit with log roll method with CGA Pt will perform supine to sit with log roll independently. LTG Duration 4 weeks Four Impairment unable to walk more than 3 blocks [facility] Goal (LTG) Pt will amb with no AD on even surfaces > 3 blocks a day LTG Duration 8 weeks Three Impairment Unable to use stationary bike more than 10 mins [facility] Goal (LTG) 06/30 pt is able to do 5 mins at a time Pt will use her stationary bike more than > 10 mins with no increased of back symptoms LTG Duration 8 weeks Two Impairment Oswetry score of 25/50 [facility] Goal (LTG) Pt will score <15/50 to enhance daily functiona/ ADL LTG Duration 8 weeks One Impairment Pt is not compliance to HEP Seat Pack Inspector Goal (LTG) Pt will exhibited indep HEP and improve body mechanics. LTG Duration 4 weeks Assessment Summary Assessment Pt cont to improve with increased activity tolerance, amb distance with reduced back pain. Added balance training today and noticed increased lateral weight shift during single leg stance. Pt questioned if she will be done with PT by 07/30. Educated pt to cont increase her acitvity tolerance and comply to HEP. Physical Therapy Plan Next Visit Focus/Plan Next Note Type Treatment Note Next Visit Plan added walking program on TM, biking gentle trunk movements. seated pelvic tilt seated lumbar movements. reassess pt's tolerance work on increasing core stability and continue with lumbar ROM exercises add [place] islander ball roll
--- NOTE | 2019-07-09 15:24 | PT.OTN ---
Current Diagnoses Low back pain (07/09/19) Physical Therapy Treatment Note PT-OP-A Visit Information Start: 04/13/19 17:17 Freq: Status: Active Protocol: Document 07/09/19 14:30 HH (Rec: 07/09/19 15:24 HH [email or web address]) Out-Patient Physical Therapy Visit Information Visit Information Visit Type Treatment Note Visit Note Pt requested to leave 15 mins earlier due to skin doctor appt Visit Start Time 14:30 Visit Stop Time 15:00 Total Visit Minutes 30 Visit Number 9 Number of SALES RECORD CLERK Visits 0 PT-OP-B Current Condition Start: 04/13/19 17:17 Freq: Status: Active Protocol: Document 04/13/19 17:35 EA (Rec: 04/14/19 15:10 EA [id number]) Current Condition History of Current Condition Onset Date 1 year ago Current Complaints Chronic low back pain History of Current Condition Patient reports gradual onset of low back pain with R > L in a year duration. She reports no significant injury or back medical history. Pt reports 2 months ago it was aggravated with increased walking duration and that prompted to see her doctor and was undergone MRI. 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 Pt reports difficulty in bed mobility that requires help and as well difficulty in ambulation distance due to increased of back pain. Prior Treatments and Tests No reports of low back formal treament, OTC helps a bit. MRI last month. Future Testing and Treatments Planned None reported Treatment Goals Patient/Caregiver Goals Patient would like to get back to her usual activities such as walking more than 3 blocks on most of the days and 3 days a week of low to mod intensity stationary bike. Prior Functional Status Baseline Function- ADL's Independent Baseline Function- Mobility Independent Baseline Function- Gait Indep with no used of Device a year ago Baseline Function- Work/School Retired Baseline Function- Recreation/Hobbies Likes to walk > 3 blocks Likes to perform stationary bike > 15 mins duration Current Functional Impairments (Reported) Functional Limitations- ADL's Indepedent but requires help with cooking due to increased of pain in standing. Functional Limitations- Mobility/Gait Ambulate indep < a block with the use of AD Functional Limitations- Work/School retired Functional Limitations- Recreation/ Unable to walk outdoors Hobbies Functional Limitations- Other Unable to perform staionary bike. Personal Factors Other Personal Factors That May Effect Dizziness supine<-> sit, HTN, Therapy/Recovery CHF, depression PT-OP-C Subjective Start: 04/13/19 17:17 Freq: Status: Active Protocol: Document 07/09/19 14:30 HH (Rec: 07/09/19 15:24 HH [email or web address]) OP-PT Subjective Patient Comments Patient Comments My back has been feeling very good recently but my body got very sore after last visit. i think we might did too much. Patient Reported Progress Improving PT-OP-F Manual Assessment Start: 04/13/19 17:17 Freq: Status: Active Protocol: Document 04/13/19 17:35 EA (Rec: 04/14/19 15:10 EA [id number]) Manual Assessments Soft Tissue Assessment Soft Tissue Mobility Assessment Lumbar extensors tightness, hip flexors tightness, pectoral muscle tightness. Joint Mobility Assessment Joint Mobility Assessment Hypo lumbar joing mob. PT-OP-J Posture/Palpation/Skin Start: 04/13/19 17:17 Freq: Status: Active Protocol: Document 04/13/19 17:35 EA (Rec: 04/14/19 15:10 EA [id number]) Posture Evaluation Comments Posture Comments Fwd head, rounded shoulders, knocked knees, increased lumbar curvature with abdmominal protrusion Palpation Assessment Location One Palpation Location paralumbars, upper gluteals, QL, SI joint, lumbosacral fascia Palpation Findings Soft Tissue Tightness, Tenderness PT-OP-K Range of Motion Start: 04/13/19 17:17 Freq: Status: Active Protocol: Document 04/13/19 17:35 EA (Rec: 04/14/19 15:10 EA [id number]) Lumbar Spine Range of Motion Lumbar Spine Active Percentage Testing Position Standing Flexion 70 Extension 60 Rotation Left 50 Rotation Right 50 Lateral Flexion Left 50 Lateral Flexion Right 50 ROM Limitations Soft Tissue Tightness,Muscle Weakness,Pain PT-OP-L Special Tests Start: 04/13/19 17:17 Freq: Status: Active Protocol: Document 04/13/19 17:35 EA (Rec: 04/14/19 15:10 EA [id number]) Special Tests Lumbar Spine Special Tests Straight Leg Raise Test Results + Hip Special Tests Piriformis Test Results R + PT-OP-M Strength Start: 04/13/19 17:17 Freq: Status: Active Protocol: Document 04/13/19 17:35 EA (Rec: 04/14/19 15:10 EA [id number]) Trunk Strength Trunk Manual Muscle Testing Testing Position supine and standing Flexion 3- Fair- Extension 4 Good Rotation Left 4 Good Rotation Right 4 Good Lateral Flexion Left 4- Good- Lateral Flexion Right 4- Good- PT-OP-Q Treatments Start: 04/13/19 17:17 Freq: Status: Active Protocol: Document 07/09/19 14:30 HH (Rec: 07/09/19 15:24 HH [email or web address]) Therapeutic Exercises Sitting Exercises seated trunk AROM Sitting Exercise Name ankle touch and full trunk extension Side bilateral Reps/Minutes 10 x2 ball roll Sitting Exercise Name foward and sideways Equipment Used [place] ball roll Reps/Minutes 10 x 4 Standing Exercises lunges with trunk rotation Standing Exercise Name stagger stance with reaching across midline Side bilateral Reps/Minutes 8 x 4 Comments CGA on pt with gait belt side step Side bilateral Equipment Used hurdles Comments within //bar hurdles Standing Exercise Name within //bar, step to and step over Side bilateral Equipment Used hurdles Comments cues on maintaining even hip level PT-OP-R Modalities Start: 04/13/19 17:17 Freq: Status: Active Protocol: Document 07/07/19 14:32 HH (Rec: 07/07/19 15:21 HH [email or web address]) Hot Pack/Cold Pack Treatment Hot Pack Location low back and neck Patient Position Hooklying Treatment Duration (minutes) 8 PT-OP-T Assessment and Plan Start: 04/13/19 17:17 Freq: Status: Active Protocol: Document 07/09/19 14:30 HH (Rec: 07/09/19 15:24 HH [email or web address]) Physical Therapy Assessment Goals steps climbing Impairment Pt climbs her steps with B UE support Fpc Goal (LTG) Pt will improve her single leg balance and strength so she can climb her steps x3 without UE support. LTG Duration 4 weeks Five Impairment Min A with bed mobility Groundman Goal (LTG) 06/30 : Pt perform supine to sit with log roll method with CGA Pt will perform supine to sit with log roll independently. LTG Duration 4 weeks Four Impairment unable to walk more than 3 blocks Groundman Goal (LTG) Pt will amb with no AD on even surfaces > 3 blocks a day LTG Duration 8 weeks Three Impairment Unable to use stationary bike more than 10 mins Groundman Goal (LTG) 10/1 pt is able to do 5 mins at a time Pt will use her stationary bike more than > 10 mins with no increased of back symptoms LTG Duration 8 weeks Two Impairment Oswetry score of 25/50 Fpc Goal (LTG) Pt will score <15/50 to enhance daily functiona/ ADL LTG Duration 8 weeks One Impairment Pt is not compliance to HEP Groundman Goal (LTG) Pt will exhibited indep HEP and improve body mechanics. LTG Duration 4 weeks Assessment Summary Assessment Pt cont to improve tolerable trunk AROM and activity tolerance. Tx focused on Trunk Active and AAROM, single leg stance, and balance training with hurdles. Pt denies any discomfort Physical Therapy Plan Next Visit Focus/Plan Next Note Type Treatment Note Next Visit Plan added walking program on TM, biking gentle trunk movements. seated pelvic tilt seated lumbar movements. reassess pt's tolerance work on increasing core stability and continue with lumbar ROM exercises add [place] ball roll
--- NOTE | 2019-07-14 16:07 | PT.OTN ---
Current Diagnoses Low back pain (07/14/19) Physical Therapy Treatment Note PT-OP-A Visit Information Start: 04/13/19 17:17 Freq: Status: Active Protocol: Document 07/14/19 14:30 AMB (Rec: 07/14/19 15:49 AMB [id number]) Out-Patient Physical Therapy Visit Information Visit Information Visit Type Progress Note Visit Start Time 14:32 Visit Stop Time 15:15 Total Visit Minutes 43 Visit Number 10 Number of STORE GROUP MANAGER Visits 0 PT-OP-B Current Condition Start: 04/13/19 17:17 Freq: Status: Active Protocol: Document 04/13/19 17:35 EA (Rec: 04/14/19 15:10 EA [id number]) Current Condition History of Current Condition Onset Date 1 year ago Current Complaints Chronic low back pain History of Current Condition Patient reports gradual onset of low back pain with R > L in a year duration. She reports no significant injury or back medical history. Pt reports 2 months ago it was aggravated with increased walking duration and that prompted to see her doctor and was undergone MRI. 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 Pt reports difficulty in bed mobility that requires help and as well difficulty in ambulation distance due to increased of back pain. Prior Treatments and Tests No reports of low back formal treament, OTC helps a bit. MRI last month. Future Testing and Treatments Planned None reported Treatment Goals Patient/Caregiver Goals Patient would like to get back to her usual activities such as walking more than 3 blocks on most of the days and 3 days a week of low to mod intensity stationary bike. Prior Functional Status Baseline Function- ADL's Independent Baseline Function- Mobility Independent Baseline Function- Gait Indep with no used of Device a year ago Baseline Function- Work/School Retired Baseline Function- Recreation/Hobbies Likes to walk > 3 blocks Likes to perform stationary bike > 15 mins duration Current Functional Impairments (Reported) Functional Limitations- ADL's Indepedent but requires help with cooking due to increased of pain in standing. Functional Limitations- Mobility/Gait Ambulate indep < a block with the use of AD Functional Limitations- Work/School retired Functional Limitations- Recreation/ Unable to walk outdoors Hobbies Functional Limitations- Other Unable to perform staionary bike. Personal Factors Other Personal Factors That May Effect Dizziness supine<-> sit, HTN, Therapy/Recovery CHF, depression PT-OP-C Subjective Start: 04/13/19 17:17 Freq: Status: Active Protocol: Document 07/14/19 14:30 AMB (Rec: 07/14/19 15:49 AMB [id number]) OP-PT Subjective Patient Comments Patient Comments Back is feeling too good, but feeling lateral leg pain at night for the last month on the right. Continues to feel winded/weak with walking arley walking up hill. PT-OP-F Manual Assessment Start: 04/13/19 17:17 Freq: Status: Active Protocol: Document 04/13/19 17:35 EA (Rec: 04/14/19 15:10 EA [id number]) Manual Assessments Soft Tissue Assessment Soft Tissue Mobility Assessment Lumbar extensors tightness, hip flexors tightness, pectoral muscle tightness. Joint Mobility Assessment Joint Mobility Assessment Hypo lumbar joing mob. PT-OP-J Posture/Palpation/Skin Start: 04/13/19 17:17 Freq: Status: Active Protocol: Document 04/13/19 17:35 EA (Rec: 04/14/19 15:10 EA [id number]) Posture Evaluation Comments Posture Comments Fwd head, rounded shoulders, knocked knees, increased lumbar curvature with abdmominal protrusion Palpation Assessment Location One Palpation Location paralumbars, upper gluteals, QL, SI joint, lumbosacral fascia Palpation Findings Soft Tissue Tightness, Tenderness PT-OP-K Range of Motion Start: 04/13/19 17:17 Freq: Status: Active Protocol: Document 04/13/19 17:35 EA (Rec: 04/14/19 15:10 EA [id number]) Lumbar Spine Range of Motion Lumbar Spine Active Percentage Testing Position Standing Flexion 70 Extension 60 Rotation Left 50 Rotation Right 50 Lateral Flexion Left 50 Lateral Flexion Right 50 ROM Limitations Soft Tissue Tightness,Muscle Weakness,Pain PT-OP-L Special Tests Start: 04/13/19 17:17 Freq: Status: Active Protocol: Document 04/13/19 17:35 EA (Rec: 04/14/19 15:10 EA [id number]) Special Tests Lumbar Spine Special Tests Straight Leg Raise Test Results + Hip Special Tests Piriformis Test Results R + PT-OP-M Strength Start: 04/13/19 17:17 Freq: Status: Active Protocol: Document 04/13/19 17:35 EA (Rec: 04/14/19 15:10 EA [id number]) Trunk Strength Trunk Manual Muscle Testing Testing Position supine and standing Flexion 3- Fair- Extension 4 Good Rotation Left 4 Good Rotation Right 4 Good Lateral Flexion Left 4- Good- Lateral Flexion Right 4- Good- PT-OP-Q Treatments Start: 04/13/19 17:17 Freq: Status: Active Protocol: Document 07/14/19 14:30 AMB (Rec: 07/14/19 16:05 AMB [email or web address]) Cardio Equipment Recumbent Elliptical (BiodGet Me Listed) Duration (Minutes) 7 Resistance 1 Therapeutic Exercises Supine Exercises 2 Supine Exercise Name Low trunk rotation Reps/Minutes x 10 reps x2 1 Supine Exercise Name hamstring stretch Reps/Minutes 30x2 Standing Exercises 1 Standing Exercise Name mini squats Reps/Minutes 10 Comments with UE support Neuro Re-Education Treatment Balance Activities 2 Details single leg balance Comments working from hand on wall to one finger on wall 1 Details stepping over hurdles Comments // bars, needed intermittent UE support PT-OP-R Modalities Start: 04/13/19 17:17 Freq: Status: Active Protocol: Document 07/07/19 14:32 HH (Rec: 07/07/19 15:21 HH [email or web address]) Hot Pack/Cold Pack Treatment Hot Pack Location low back and neck Patient Position Hooklying Treatment Duration (minutes) 8 PT-OP-T Assessment and Plan Start: 04/13/19 17:17 Freq: Status: Active Protocol: Document 07/14/19 14:30 AMB (Rec: 07/14/19 15:49 AMB [id number]) Physical Therapy Assessment Goals steps climbing Impairment Pt climbs her steps with B UE support Retirement Goal (LTG) Pt will improve her single leg balance and strength so she can climb her steps x3 without UE support. 07/14 Uses rail, single leg balance still requires UE support LTG Duration 4 weeks Five Impairment Min A with bed mobility Retirement Goal (LTG) 06/30 : Pt perform supine to sit with log roll method with CGA MET Pt will perform supine to sit with log roll independently. LTG Duration 4 weeks Four Impairment unable to walk more than 3 blocks Bmet Goal (LTG) Pt will amb with no AD on even surfaces > 3 blocks a day LTG Duration 8 weeks Three Impairment Unable to use stationary bike more than 10 mins Bmet Goal (LTG) 10/ pt is able to do 5 mins at a time MET Pt will use her stationary bike more than > 10 mins with no increased of back symptoms LTG Duration 8 weeks Two Impairment Oswetry score of 25/50 Bmet Goal (LTG) Pt will score <15/50 to enhance daily functiona/ ADL LTG Duration 8 weeks One Impairment Pt is not compliance to HEP Retirement Goal (LTG) Pt will exhibited indep HEP and improve body mechanics. LTG Duration 4 weeks Assessment Summary Assessment Naty is progressing well with her back pain, but continues to have right lower leg pain and dizziness. She continues to find it difficult to walk very far, but can walk at [place] with the cart. She tolerated more standing exercises, with fewer rest breaks today. Physical Therapy Plan Next Visit Focus/Plan Next Note Type Treatment Note Next Visit Plan added walking program on TM, biking gentle trunk movements. seated pelvic tilt seated lumbar movements. reassess pt's tolerance work on increasing core stability and continue with lumbar ROM exercises add greek ball roll
--- NOTE | 2019-07-19 18:15 | PT.OTN ---
Current Diagnoses Low back pain (07/16/19) Physical Therapy Treatment Note PT-OP-A Visit Information Start: 04/13/19 17:17 Freq: Status: Active Protocol: Document 07/16/19 14:30 AMH (Rec: 07/19/19 18:15 AMH [email or web address]) Out-Patient Physical Therapy Visit Information Visit Information Visit Type Treatment Note Visit Start Time 14:30 Visit Stop Time 15:15 Total Visit Minutes 45 Visit Number 11 Number of TIER AND DETONATOR Visits 0 PT-OP-B Current Condition Start: 04/13/19 17:17 Freq: Status: Active Protocol: Document 04/13/19 17:35 EA (Rec: 04/14/19 15:10 EA [id number]) Current Condition History of Current Condition Onset Date 1 year ago Current Complaints Chronic low back pain History of Current Condition Patient reports gradual onset of low back pain with R > L in a year duration. She reports no significant injury or back medical history. Pt reports 2 months ago it was aggravated with increased walking duration and that prompted to see her doctor and was undergone MRI. 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 Pt reports difficulty in bed mobility that requires help and as well difficulty in ambulation distance due to increased of back pain. Prior Treatments and Tests No reports of low back formal treament, OTC helps a bit. MRI last month. Future Testing and Treatments Planned None reported Treatment Goals Patient/Caregiver Goals Patient would like to get back to her usual activities such as walking more than 3 blocks on most of the days and 3 days a week of low to mod intensity stationary bike. Prior Functional Status Baseline Function- ADL's Independent Baseline Function- Mobility Independent Baseline Function- Gait Indep with no used of Device a year ago Baseline Function- Work/School Retired Baseline Function- Recreation/Hobbies Likes to walk > 3 blocks Likes to perform stationary bike > 15 mins duration Current Functional Impairments (Reported) Functional Limitations- ADL's Indepedent but requires help with cooking due to increased of pain in standing. Functional Limitations- Mobility/Gait Ambulate indep < a block with the use of AD Functional Limitations- Work/School retired Functional Limitations- Recreation/ Unable to walk outdoors Hobbies Functional Limitations- Other Unable to perform staionary bike. Personal Factors Other Personal Factors That May Effect Dizziness supine<-> sit, HTN, Therapy/Recovery CHF, depression PT-OP-C Subjective Start: 04/13/19 17:17 Freq: Status: Active Protocol: Document 07/16/19 14:30 AMH (Rec: 07/19/19 18:15 AMH [email or web address]) OP-PT Subjective Patient Comments Patient Comments pt reports she is still having the vertigo and is anxious to start PT for this condition PT-OP-F Manual Assessment Start: 04/13/19 17:17 Freq: Status: Active Protocol: Document 04/13/19 17:35 EA (Rec: 04/14/19 15:10 EA [id number]) Manual Assessments Soft Tissue Assessment Soft Tissue Mobility Assessment Lumbar extensors tightness, hip flexors tightness, pectoral muscle tightness. Joint Mobility Assessment Joint Mobility Assessment Hypo lumbar joing mob. PT-OP-J Posture/Palpation/Skin Start: 04/13/19 17:17 Freq: Status: Active Protocol: Document 04/13/19 17:35 EA (Rec: 04/14/19 15:10 EA [id number]) Posture Evaluation Comments Posture Comments Fwd head, rounded shoulders, knocked knees, increased lumbar curvature with abdmominal protrusion Palpation Assessment Location One Palpation Location paralumbars, upper gluteals, QL, SI joint, lumbosacral fascia Palpation Findings Soft Tissue Tightness, Tenderness PT-OP-K Range of Motion Start: 04/13/19 17:17 Freq: Status: Active Protocol: Document 04/13/19 17:35 EA (Rec: 04/14/19 15:10 EA [id number]) Lumbar Spine Range of Motion Lumbar Spine Active Percentage Testing Position Standing Flexion 70 Extension 60 Rotation Left 50 Rotation Right 50 Lateral Flexion Left 50 Lateral Flexion Right 50 ROM Limitations Soft Tissue Tightness,Muscle Weakness,Pain PT-OP-L Special Tests Start: 04/13/19 17:17 Freq: Status: Active Protocol: Document 04/13/19 17:35 EA (Rec: 04/14/19 15:10 EA [id number]) Special Tests Lumbar Spine Special Tests Straight Leg Raise Test Results + Hip Special Tests Piriformis Test Results R + PT-OP-M Strength Start: 04/13/19 17:17 Freq: Status: Active Protocol: Document 04/13/19 17:35 EA (Rec: 04/14/19 15:10 EA [id number]) Trunk Strength Trunk Manual Muscle Testing Testing Position supine and standing Flexion 3- Fair- Extension 4 Good Rotation Left 4 Good Rotation Right 4 Good Lateral Flexion Left 4- Good- Lateral Flexion Right 4- Good- PT-OP-Q Treatments Start: 04/13/19 17:17 Freq: Status: Active Protocol: Document 07/16/19 14:30 AMH (Rec: 07/19/19 18:15 AMH [email or web address]) Cardio Equipment Recumbent Elliptical (Biodex) Duration (Minutes) 7 Resistance 1 Gym Equipment Shuttle Rebound B squat Exercise Details bilateral squat Reps/Duration 50# Comments 3 x 10 reps Therapeutic Exercises Supine Exercises 9 Supine Exercise Name pelvic floor isolations, TA isolations Reps/Minutes 5 x 5 second holds 8 Supine Exercise Name hamstring stretch 7 Supine Exercise Name piriformis stretch Comments figure 4 6 Supine Exercise Name bridges with ball squeeze Reps/Minutes 3 secs hold x 10 reps 5 Supine Exercise Name roll outs with level 2 theraband Reps/Minutes 3 x 10 reps Comments in hooklying position 4 Supine Exercise Name ball squeeze with pelvic floor contraction Reps/Minutes 5 sec hold x 10 reps 3 Supine Exercise Name SKTC Reps/Minutes x 30SH x 2 reps each 2 Supine Exercise Name Low trunk rotation Reps/Minutes x 10 reps x2 1 Supine Exercise Name hamstring stretch Reps/Minutes 30x2 Standing Exercises 1 Standing Exercise Name mini squats Reps/Minutes 10 Comments with UE support side step Side bilateral Equipment Used hurdles Comments within //bar PT-OP-R Modalities Start: 04/13/19 17:17 Freq: Status: Active Protocol: Document 07/07/19 14:32 HH (Rec: 07/07/19 15:21 HH [email or web address]) Hot Pack/Cold Pack Treatment Hot Pack Location low back and neck Patient Position Hooklying Treatment Duration (minutes) 8 PT-OP-T Assessment and Plan Start: 04/13/19 17:17 Freq: Status: Active Protocol: Document 07/16/19 14:30 AMH (Rec: 07/19/19 18:15 AMH [email or web address]) Physical Therapy Assessment Assessment Summary Assessment Naty did not have as much low back pain today but is still c/o dizzyness. She did not have her referral back yet from Dr. Heart. Physical Therapy Plan Next Visit Focus/Plan Next Note Type Treatment Note Next Visit Plan added walking program on TM, biking gentle trunk movements. seated pelvic tilt seated lumbar movements. reassess pt's tolerance work on increasing core stability and continue with lumbar ROM exercises add maltese ball roll
--- NOTE | 2019-07-21 15:15 | PT.OTN ---
Current Diagnoses Low back pain (07/29/19) Physical Therapy Treatment Note PT-OP-A Visit Information Start: 04/13/19 17:17 Freq: Status: Active Protocol: Document 07/30/19 15:15 AMH (Rec: 07/30/19 15:42 AMH [email or web address]) Out-Patient Physical Therapy Visit Information Visit Information Visit Type Treatment Note Visit Start Time 15:15 Visit Stop Time 16:00 Total Visit Minutes 45 Visit Number 11 PT-OP-B Current Condition Start: 04/13/19 17:17 Freq: Status: Active Protocol: Document 07/29/19 16:00 DCW (Rec: 07/29/19 17:53 DCW [id number]) Current Condition History of Current Condition Onset Date 1 year ago Current Complaints Chronic low back pain History of Current Condition Patient reports gradual onset of low back pain with R > L in a year duration. She reports no significant injury or back medical history. Pt reports 2 months ago it was aggravated with increased walking duration and that prompted to see her doctor and was undergone MRI. 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 Pt reports difficulty in bed mobility that requires help and as well difficulty in ambulation distance due to increased of back pain. ADDENDUM 07/29/19: Pt presents for a reevaluation for vestibular dysfunction, complaining of a one month history of motion-induced vertigo. Pt reports episodes last 10-15 seconds. Symptoms are provoked by rolling to her right side, getting up from laying during therapy, and bending forward to pull up weeds. Pt denies recent hearing changes, tinnitus, diplopia, dysarthria, discoordination, or decreased mentation/consciousness. Pt does reports a history of this happening one other time long ago, and I went to a doctors office, and he did some procedure on me twice, and that fixed it. Prior Treatments and Tests No reports of low back formal treament, OTC helps a bit. MRI last month. Future Testing and Treatments Planned None reported PT-OP-C Subjective Start: 04/13/19 17:17 Freq: Status: Active Protocol: Document 07/29/19 16:00 DCW (Rec: 07/29/19 17:53 DCW [id number]) OP-PT Subjective Patient Comments Patient Comments I'm a worry-wart. I worry about everything. I worry about my dizziness, I worry about my , and my daughter. It would be nice to get rid of this and have one less thing to worry about. PT-OP-F Manual Assessment Start: 04/13/19 17:17 Freq: Status: Active Protocol: Document 04/13/19 17:35 EA (Rec: 04/14/19 15:10 EA [id number]) Manual Assessments Soft Tissue Assessment Soft Tissue Mobility Assessment Lumbar extensors tightness, hip flexors tightness, pectoral muscle tightness. Joint Mobility Assessment Joint Mobility Assessment Hypo lumbar joing mob. PT-OP-J Posture/Palpation/Skin Start: 04/13/19 17:17 Freq: Status: Active Protocol: Document 04/13/19 17:35 EA (Rec: 04/14/19 15:10 EA [id number]) Posture Evaluation Comments Posture Comments Fwd head, rounded shoulders, knocked knees, increased lumbar curvature with abdmominal protrusion Palpation Assessment Location One Palpation Location paralumbars, upper gluteals, QL, SI joint, lumbosacral fascia Palpation Findings Soft Tissue Tightness, Tenderness PT-OP-K Range of Motion Start: 04/13/19 17:17 Freq: Status: Active Protocol: Document 04/13/19 17:35 EA (Rec: 04/14/19 15:10 EA [id number]) Lumbar Spine Range of Motion Lumbar Spine Active Percentage Testing Position Standing Flexion 70 Extension 60 Rotation Left 50 Rotation Right 50 Lateral Flexion Left 50 Lateral Flexion Right 50 ROM Limitations Soft Tissue Tightness,Muscle Weakness,Pain PT-OP-L Special Tests Start: 04/13/19 17:17 Freq: Status: Active Protocol: Document 04/13/19 17:35 EA (Rec: 04/14/19 15:10 EA [id number]) Special Tests Lumbar Spine Special Tests Straight Leg Raise Test Results + Hip Special Tests Piriformis Test Results R + PT-OP-M Strength Start: 04/13/19 17:17 Freq: Status: Active Protocol: Document 04/13/19 17:35 EA (Rec: 04/14/19 15:10 EA [id number]) Trunk Strength Trunk Manual Muscle Testing Testing Position supine and standing Flexion 3- Fair- Extension 4 Good Rotation Left 4 Good Rotation Right 4 Good Lateral Flexion Left 4- Good- Lateral Flexion Right 4- Good- PT-OP-O Vestibular Start: 07/29/19 17:38 Freq: Status: Active Protocol: Document 07/29/19 16:00 DCW (Rec: 07/29/19 17:53 DCW [id number]) Vestibular Assessment Screening Tests Vestibular Artery Screen Negative Auditory Tests Blair Test Negative Rinne Test Negative Air Conduction Results Equal Visual Testing Smooth Pursuits Horizontal Square-wave jerks Smooth Pursuits Vertical Square-wave jerks Saccades Horizontal Square-wave jerks Positional Testing [place]-Hallpike Positive Right,Negative Left, Upbeating,< 60 Seconds PT-OP-Q Treatments Start: 04/13/19 17:17 Freq: Status: Active Protocol: Document 07/30/19 15:15 AMH (Rec: 07/30/19 15:42 AMH [email or web address]) Therapeutic Exercises Standing Exercises 3 Standing Exercise Name standing hip abduction Reps/Minutes 2 x 10 reps 2 Standing Exercise Name standing calf raises Reps/Minutes 2 x 10 reps 1 Standing Exercise Name mini squats Reps/Minutes 10 Comments with UE support lunges with trunk rotation Standing Exercise Name stagger stance with reaching across midline Side bilateral Reps/Minutes 8 x 4 Comments CGA on pt with gait belt side step Side bilateral Equipment Used hurdles Comments within //bar hurdles Standing Exercise Name within //bar, step to and step over Side bilateral Equipment Used hurdles Comments cues on maintaining even hip level Neuro Re-Education Treatment Balance Activities 4 Details standing balance board Comments anterior and posterior sways 3 Details standing marches 2 Details single leg balance Comments working from hand on wall to one finger on wall 1 Details stepping over hurdles Comments // bars, needed intermittent UE support PT-OP-R Modalities Start: 04/13/19 17:17 Freq: Status: Active Protocol: Document 07/07/19 14:32 HH (Rec: 07/07/19 15:21 HH [email or web address]) Hot Pack/Cold Pack Treatment Hot Pack Location low back and neck Patient Position Hooklying Treatment Duration (minutes) 8 PT-OP-T Assessment and Plan Start: 04/13/19 17:17 Freq: Status: Active Protocol: Document 07/30/19 15:15 AMH (Rec: 07/30/19 15:42 AMH [email or web address]) Physical Therapy Assessment Assessment Summary Assessment pt notes she has been sore with the weather change lately and she moved slower through her exercises today. Physical Therapy Plan Frequency and Duration Frequency of Treatment 2x/Week Duration of Treatment 8 weeks Plan of Care Start Date 07/29/19 Plan of Care End Date 09/23/19 Next Visit Focus/Plan Next Note Type Treatment Note Next Visit Plan continue progressing stretching and stabilization exercises and working on balance exercises.
--- NOTE | 2019-07-28 17:35 | PT.OTN ---
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 She reports no significant injury or back medical history. Pt reports 2 months ago it was aggravated with increased walking duration and that prompted to see her doctor and was undergone MRI. 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 Pt reports difficulty in bed mobility that requires help and as well difficulty in ambulation distance due to increased of back pain. Prior Treatments and Tests No reports of low back formal treament, OTC helps a bit. MRI last month. Future Testing and Treatments Planned None reported Treatment Goals Patient/Caregiver Goals Patient would like to get back to her usual activities such as walking more than 3 blocks on most of the days and 3 days a week of low to mod intensity stationary bike. Prior Functional Status Baseline Function- ADL's Independent Baseline Function- Mobility Independent Baseline Function- Gait Indep with no used of Device a year ago Baseline Function- Work/School Retired Baseline Function- Recreation/Hobbies Likes to walk > 3 blocks Likes to perform stationary bike > 15 mins duration Current Functional Impairments (Reported) Functional Limitations- ADL's Indepedent but requires help with cooking due to increased of pain in standing. Functional Limitations- Mobility/Gait Ambulate indep < a block with the use of AD Functional Limitations- Work/School retired Functional Limitations- Recreation/ Unable to walk outdoors Hobbies Functional Limitations- Other Unable to perform staionary bike. Personal Factors Other Personal Factors That May Effect Dizziness supine<-> sit, HTN, Therapy/Recovery CHF, depression PT-OP-C Subjective Start: 04/13/19 17:17 Freq: Status: Active Protocol: Document 07/28/19 17:26 AMH (Rec: 07/28/19 17:35 AMH [email or web address]) OP-PT Subjective Patient Comments Patient Comments pt notes she has a appointment for vertigo treatment on saturday. She is still getting very dizzy so she is happy to have this visit scheduled PT-OP-F Manual Assessment Start: 04/13/19 17:17 Freq: Status: Active Protocol: Document 04/13/19 17:35 EA (Rec: 04/14/19 15:10 EA [id number]) Manual Assessments Soft Tissue Assessment Soft Tissue Mobility Assessment Lumbar extensors tightness, hip flexors tightness, pectoral muscle tightness. Joint Mobility Assessment Joint Mobility Assessment Hypo lumbar joing mob. PT-OP-J Posture/Palpation/Skin Start: 04/13/19 17:17 Freq: Status: Active Protocol: Document 04/13/19 17:35 EA (Rec: 04/14/19 15:10 EA [id number]) Posture Evaluation Comments Posture Comments Fwd head, rounded shoulders, knocked knees, increased lumbar curvature with abdmominal protrusion Palpation Assessment Location One Palpation Location paralumbars, upper gluteals, QL, SI joint, lumbosacral fascia Palpation Findings Soft Tissue Tightness, Tenderness PT-OP-K Range of Motion Start: 04/13/19 17:17 Freq: Status: Active Protocol: Document 04/13/19 17:35 EA (Rec: 04/14/19 15:10 EA [id number]) Lumbar Spine Range of Motion Lumbar Spine Active Percentage Testing Position Standing Flexion 70 Extension 60 Rotation Left 50 Rotation Right 50 Lateral Flexion Left 50 Lateral Flexion Right 50 ROM Limitations Soft Tissue Tightness,Muscle Weakness,Pain PT-OP-L Special Tests Start: 04/13/19 17:17 Freq: Status: Active Protocol: Document 04/13/19 17:35 EA (Rec: 04/14/19 15:10 EA [id number]) Special Tests Lumbar Spine Special Tests Straight Leg Raise Test Results + Hip Special Tests Piriformis Test Results R + PT-OP-M Strength Start: 04/13/19 17:17 Freq: Status: Active Protocol: Document 04/13/19 17:35 EA (Rec: 04/14/19 15:10 EA [id number]) Trunk Strength Trunk Manual Muscle Testing Testing Position supine and standing Flexion 3- Fair- Extension 4 Good Rotation Left 4 Good Rotation Right 4 Good Lateral Flexion Left 4- Good- Lateral Flexion Right 4- Good- PT-OP-Q Treatments Start: 04/13/19 17:17 Freq: Status: Active Protocol: Document 07/28/19 17:26 AMH (Rec: 07/28/19 17:35 AMH [email or web address]) Cardio Equipment Recumbent Elliptical (Categorical) Duration (Minutes) 7 Resistance 1 Therapeutic Exercises Sitting Exercises 2 Sitting Exercise Name seated hamstring stretch Reps/Minutes 2 x 30 seconds 1 Sitting Exercise Name Fwd bending; bending with rotation, SF Reps/Minutes x 30SH x 2 reps Comments leaning and touching the floor . Standing Exercises 3 Standing Exercise Name standing hip abduction Reps/Minutes 2 x 10 reps 2 Standing Exercise Name standing calf raises Reps/Minutes 2 x 10 reps 1 Standing Exercise Name mini squats Reps/Minutes 10 Comments with UE support lunges with trunk rotation Standing Exercise Name stagger stance with reaching across midline Side bilateral Reps/Minutes 8 x 4 Comments CGA on pt with gait belt side step Side bilateral Equipment Used hurdles Comments within //bar hurdles Standing Exercise Name within //bar, step to and step over Side bilateral Equipment Used hurdles Comments cues on maintaining even hip level Neuro Re-Education Treatment Balance Activities 4 Details standing balance board Comments anterior and posterior sways 3 Details standing marches 2 Details single leg balance Comments working from hand on wall to one finger on wall PT-OP-R Modalities Start: 04/13/19 17:17 Freq: Status: Active Protocol: Document 07/07/19 14:32 HH (Rec: 07/07/19 15:21 HH [email or web address]) Hot Pack/Cold Pack Treatment Hot Pack Location low back and neck Patient Position Hooklying Treatment Duration (minutes) 8 PT-OP-T Assessment and Plan Start: 04/13/19 17:17 Freq: Status: Active Protocol: Document 07/28/19 17:26 AMH (Rec: 07/28/19 17:35 AMH [email or web address]) Physical Therapy Assessment Assessment Summary Assessment pt was achey all over today and is not sure if it is the weather. Dizzyness limited forward bend activities today Physical Therapy Plan Frequency and Duration Frequency of Treatment 2x/Week Duration of Treatment 8 weeks Plan of Care Start Date 06/30/19 Plan of Care End Date 08/29/19 Therapeutic Interventions Therapeutic Interventions Balance Training,Gait Training ,Home Exercise Program,Joint Mobilizations,Manual Therapy, Neuromuscular Re-education, Patient/Caregiver Education, Self-Care/Home Management,Soft Tissue Mobilization,Taping, Therapeutic Activities, Therapeutic Exercises Modalities Cold Pack/Ice Massage,Electric Stimulation,Hot Packs, Infrared Therapy,Traction- Mechanical,Ultrasound Next Visit Focus/Plan Next Note Type Treatment Note Next Visit Plan re-evaluation for vertigo next visit
--- NOTE | 2019-07-29 17:53 | PT.OTRE ---
Current Diagnoses Low back pain (07/29/19) Visit Care Team Role Provider Type Naty Heart MD Attending Provider Physician Primary Care Provider Specialty: Internal Medicine Address: [address] [place] [address], [id number] Email: [email or web address] Re-Evaluation PT-OP-A Visit Information Start: 04/13/19 17:17 Freq: Status: Active Protocol: Document 07/29/19 16:00 DCW (Rec: 07/29/19 17:53 DCW [id number]) Out-Patient Physical Therapy Visit Information Visit Information Visit Type Re-Evaluation Visit Start Time 16:00 Visit Stop Time 16:40 Total Visit Minutes 40 Visit Number 13 PT-OP-B Current Condition Start: 04/13/19 17:17 Freq: Status: Active Protocol: Document 07/29/19 16:00 DCW (Rec: 07/29/19 17:53 DCW [id number]) Current Condition History of Current Condition Onset Date 1 year ago Current Complaints Chronic low back pain History of Current Condition Patient reports gradual onset of low back pain with R > L in a year duration. She reports no significant injury or back medical history. Pt reports 2 months ago it was aggravated with increased walking duration and that prompted to see her doctor and was undergone MRI. 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 Pt reports difficulty in bed mobility that requires help and as well difficulty in ambulation distance due to increased of back pain. ADDENDUM 07/29/19: Pt presents for a reevaluation for vestibular dysfunction, complaining of a one month history of motion-induced vertigo. Pt reports episodes last 10-15 seconds. Symptoms are provoked by rolling to her right side, getting up from laying during therapy, and bending forward to pull up weeds. Pt denies recent hearing changes, tinnitus, diplopia, dysarthria, discoordination, or decreased mentation/consciousness. Pt does reports a history of this happening one other time long ago, and I went to a doctors office, and he did some procedure on me twice, and that fixed it. Prior Treatments and Tests No reports of low back formal treament, OTC helps a bit. MRI last month. Future Testing and Treatments Planned None reported PT-OP-C Subjective Start: 04/13/19 17:17 Freq: Status: Active Protocol: Document 07/29/19 16:00 DCW (Rec: 07/29/19 17:53 DCW [id number]) OP-PT Subjective Patient Comments Patient Comments I'm a worry-wart. I worry about everything. I worry about my dizziness, I worry about my , and my daughter. It would be nice to get rid of this and have one less thing to worry about. PT-OP-F Manual Assessment Start: 04/13/19 17:17 Freq: Status: Active Protocol: Document 04/13/19 17:35 EA (Rec: 04/14/19 15:10 EA [id number]) Manual Assessments Soft Tissue Assessment Soft Tissue Mobility Assessment Lumbar extensors tightness, hip flexors tightness, pectoral muscle tightness. Joint Mobility Assessment Joint Mobility Assessment Hypo lumbar joing mob. PT-OP-J Posture/Palpation/Skin Start: 04/13/19 17:17 Freq: Status: Active Protocol: Document 04/13/19 17:35 EA (Rec: 04/14/19 15:10 EA [id number]) Posture Evaluation Comments Posture Comments Fwd head, rounded shoulders, knocked knees, increased lumbar curvature with abdmominal protrusion Palpation Assessment Location One Palpation Location paralumbars, upper gluteals, QL, SI joint, lumbosacral fascia Palpation Findings Soft Tissue Tightness, Tenderness PT-OP-K Range of Motion Start: 04/13/19 17:17 Freq: Status: Active Protocol: Document 04/13/19 17:35 EA (Rec: 04/14/19 15:10 EA [id number]) Lumbar Spine Range of Motion Lumbar Spine Active Percentage Testing Position Standing Flexion 70 Extension 60 Rotation Left 50 Rotation Right 50 Lateral Flexion Left 50 Lateral Flexion Right 50 ROM Limitations Soft Tissue Tightness,Muscle Weakness,Pain PT-OP-L Special Tests Start: 04/13/19 17:17 Freq: Status: Active Protocol: Document 04/13/19 17:35 EA (Rec: 04/14/19 15:10 EA [id number]) Special Tests Lumbar Spine Special Tests Straight Leg Raise Test Results + Hip Special Tests Piriformis Test Results R + PT-OP-M Strength Start: 04/13/19 17:17 Freq: Status: Active Protocol: Document 04/13/19 17:35 EA (Rec: 04/14/19 15:10 EA [id number]) Trunk Strength Trunk Manual Muscle Testing Testing Position supine and standing Flexion 3- Fair- Extension 4 Good Rotation Left 4 Good Rotation Right 4 Good Lateral Flexion Left 4- Good- Lateral Flexion Right 4- Good- PT-OP-O Vestibular Start: 07/29/19 17:38 Freq: Status: Active Protocol: Document 07/29/19 16:00 DCW (Rec: 07/29/19 17:53 DCW [id number]) Vestibular Assessment Screening Tests Vestibular Artery Screen Negative Auditory Tests Blair Test Negative Rinne Test Negative Air Conduction Results Equal Visual Testing Smooth Pursuits Horizontal Square-wave jerks Smooth Pursuits Vertical Square-wave jerks Saccades Horizontal Square-wave jerks Positional Testing [place]-Hallpike Positive Right,Negative Left, Upbeating,< 60 Seconds PT-OP-Q Treatments Start: 04/13/19 17:17 Freq: Status: Active Protocol: Document 07/29/19 16:00 DCW (Rec: 07/29/19 17:53 DCW [id number]) Canalithic Repositioning BPPV Treatment Kev Affected Canal(s) Right posterior canal Reps x2 Comments Pt complained of symptoms in the first and third position, which is normally indicative of a successful treatment. Further positional testing was negative. PT-OP-R Modalities Start: 04/13/19 17:17 Freq: Status: Active Protocol: Document 07/07/19 14:32 HH (Rec: 07/07/19 15:21 HH [email or web address]) Hot Pack/Cold Pack Treatment Hot Pack Location low back and neck Patient Position Hooklying Treatment Duration (minutes) 8 PT-OP-T Assessment and Plan Start: 04/13/19 17:17 Freq: Status: Active Protocol: Document 07/29/19 16:00 DCW (Rec: 07/29/19 17:53 DCW [id number]) Physical Therapy Assessment Impairments Impairments Activity Tolerance,Balance, Functional Mobility,Gait,Pain, Posture,ROM,Soft Tissue Mobility,Strength,Transfers, Vestibular Goals Six Impairment Positive right [place]-Hallpike Short Term Goal (STG) Pt to tests negative bilaterally during [place]- Hallpike STG Duration 3 weeks steps climbing Impairment Pt climbs her steps with B UE support Warping Machine Operator Goal (LTG) Pt will improve her single leg balance and strength so she can climb her steps x3 without UE support. 07/14 Uses rail, single leg balance still requires UE support LTG Duration 4 weeks Five Impairment Min A with bed mobility Warping Machine Operator Goal (LTG) 06/30 : Pt perform supine to sit with log roll method with CGA MET Pt will perform supine to sit with log roll independently. LTG Duration 4 weeks Four Impairment unable to walk more than 3 blocks Warping Machine Operator Goal (LTG) Pt will amb with no AD on even surfaces > 3 blocks a day LTG Duration 8 weeks Three Impairment Unable to use stationary bike more than 10 mins Mcfp Goal (LTG) 06/30 pt is able to do 5 mins at a time MET Pt will use her stationary bike more than > 10 mins with no increased of back symptoms LTG Duration 8 weeks Two Impairment Oswetry score of 25/50 Warping Machine Operator Goal (LTG) Pt will score <15/50 to enhance daily functiona/ ADL LTG Duration 8 weeks One Impairment Pt is not compliance to HEP Mcfp Goal (LTG) Pt will exhibited indep HEP and improve body mechanics. LTG Duration 4 weeks Assessment Summary Assessment During right [place]-Hallpike test , pt complained of vertigo and demonstrated up-beating, torsional nystagmus lasting approximately 15 seconds, consistent with diagnosis of right-sided posterior canal BPPV, canalithiasis-type. Pt was treated with a right-sided Kev maneuver. Pt complained of symptoms in the first and third position, which is normally indicative of a successful treatment. Further positional testing was negative. Pt was educated on BPPV, expectations for treatment, possible recurrence (BPPV has a ~50% recurrence rate in the five years following treatment), and post -Kev restrictions. Pt to return in ~1 week for a follow -up appointment, and intermittently afterward as indicated for treatment of BPPV. Additionally, pt should continue her current POC regarding her ongoing therapy for her low back pain, which can hopefully move forward without continued limitations due to dizziness. Physical Therapy Plan Frequency and Duration Frequency of Treatment 2x/Week Duration of Treatment 8 weeks Plan of Care Start Date 07/29/19 Plan of Care End Date 09/23/19 Therapeutic Interventions Therapeutic Interventions Balance Training,Canalithic Repositioning,Gait Training, Home Exercise Program,Joint Mobilizations,Manual Therapy, Neuromuscular Re-education, Patient/Caregiver Education, Self-Care/Home Management,Soft Tissue Mobilization,Taping, Therapeutic Activities, Therapeutic Exercises, Vestibular Rehabilitation Modalities Cold Pack/Ice Massage,Electric Stimulation,Hot Packs, Infrared Therapy,Traction- Mechanical,Ultrasound Next Visit Focus/Plan Next Note Type Treatment Note Next Visit Plan Positional re-testing and CRM as indicated, continued treatment for low back pain
--- NOTE | 2019-08-04 17:14 | PT.OTN ---
Current Diagnoses Low back pain (08/04/19) Physical Therapy Treatment Note PT-OP-A Visit Information Start: 04/13/19 17:17 Freq: Status: Active Protocol: Document 08/04/19 16:45 DCW (Rec: 08/04/19 17:14 DCW [id number]) Out-Patient Physical Therapy Visit Information Visit Information Visit Type Treatment Note Visit Start Time 16:45 Visit Stop Time 17:05 Total Visit Minutes 20 Visit Number 14 Number of POLICE COMMISSIONER Visits 0 PT-OP-B Current Condition Start: 04/13/19 17:17 Freq: Status: Active Protocol: Document 07/29/19 16:00 DCW (Rec: 07/29/19 17:53 DCW [id number]) Current Condition History of Current Condition Onset Date 1 year ago Current Complaints Chronic low back pain History of Current Condition Patient reports gradual onset of low back pain with R > L in a year duration. She reports no significant injury or back medical history. Pt reports 2 months ago it was aggravated with increased walking duration and that prompted to see her doctor and was undergone MRI. 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 Pt reports difficulty in bed mobility that requires help and as well difficulty in ambulation distance due to increased of back pain. ADDENDUM 07/29/19: Pt presents for a reevaluation for vestibular dysfunction, complaining of a one month history of motion-induced vertigo. Pt reports episodes last 10-15 seconds. Symptoms are provoked by rolling to her right side, getting up from laying during therapy, and bending forward to pull up weeds. Pt denies recent hearing changes, tinnitus, diplopia, dysarthria, discoordination, or decreased mentation/consciousness. Pt does reports a history of this happening one other time long ago, and I went to a doctors office, and he did some procedure on me twice, and that fixed it. Prior Treatments and Tests No reports of low back formal treament, OTC helps a bit. MRI last month. Future Testing and Treatments Planned None reported PT-OP-C Subjective Start: 04/13/19 17:17 Freq: Status: Active Protocol: Document 08/04/19 16:45 DCW (Rec: 08/04/19 17:14 DCW [id number]) OP-PT Subjective Patient Comments Patient Comments I'm now just having a little spinning when I lay down at night, and a little spinning when I get up in the morning, it is a lot better. PT-OP-F Manual Assessment Start: 04/13/19 17:17 Freq: Status: Active Protocol: Document 04/13/19 17:35 EA (Rec: 04/14/19 15:10 EA [id number]) Manual Assessments Soft Tissue Assessment Soft Tissue Mobility Assessment Lumbar extensors tightness, hip flexors tightness, pectoral muscle tightness. Joint Mobility Assessment Joint Mobility Assessment Hypo lumbar joing mob. PT-OP-J Posture/Palpation/Skin Start: 04/13/19 17:17 Freq: Status: Active Protocol: Document 04/13/19 17:35 EA (Rec: 04/14/19 15:10 EA [id number]) Posture Evaluation Comments Posture Comments Fwd head, rounded shoulders, knocked knees, increased lumbar curvature with abdmominal protrusion Palpation Assessment Location One Palpation Location paralumbars, upper gluteals, QL, SI joint, lumbosacral fascia Palpation Findings Soft Tissue Tightness, Tenderness PT-OP-K Range of Motion Start: 04/13/19 17:17 Freq: Status: Active Protocol: Document 04/13/19 17:35 EA (Rec: 04/14/19 15:10 EA [id number]) Lumbar Spine Range of Motion Lumbar Spine Active Percentage Testing Position Standing Flexion 70 Extension 60 Rotation Left 50 Rotation Right 50 Lateral Flexion Left 50 Lateral Flexion Right 50 ROM Limitations Soft Tissue Tightness,Muscle Weakness,Pain PT-OP-L Special Tests Start: 04/13/19 17:17 Freq: Status: Active Protocol: Document 04/13/19 17:35 EA (Rec: 04/14/19 15:10 EA [id number]) Special Tests Lumbar Spine Special Tests Straight Leg Raise Test Results + Hip Special Tests Piriformis Test Results R + PT-OP-M Strength Start: 04/13/19 17:17 Freq: Status: Active Protocol: Document 04/13/19 17:35 EA (Rec: 04/14/19 15:10 EA [id number]) Trunk Strength Trunk Manual Muscle Testing Testing Position supine and standing Flexion 3- Fair- Extension 4 Good Rotation Left 4 Good Rotation Right 4 Good Lateral Flexion Left 4- Good- Lateral Flexion Right 4- Good- PT-OP-O Vestibular Start: 07/29/19 17:38 Freq: Status: Active Protocol: Document 08/04/19 16:45 DCW (Rec: 08/04/19 17:14 DCW [id number]) Vestibular Assessment Positional Testing Yunior-Hallpike Negative Left,Negative Right Rolling Test Negative Left,Negative Right PT-OP-Q Treatments Start: 04/13/19 17:17 Freq: Status: Active Protocol: Document 08/04/19 16:45 DCW (Rec: 08/04/19 17:14 DCW [id number]) Canalithic Repositioning BPPV Treatment Kev Affected Canal(s) Right posterior canal Reps x1 PT-OP-R Modalities Start: 04/13/19 17:17 Freq: Status: Active Protocol: Document 07/07/19 14:32 HH (Rec: 07/07/19 15:21 HH [email or web address]) Hot Pack/Cold Pack Treatment Hot Pack Location low back and neck Patient Position Hooklying Treatment Duration (minutes) 8 PT-OP-T Assessment and Plan Start: 04/13/19 17:17 Freq: Status: Active Protocol: Document 08/04/19 16:45 DCW (Rec: 08/04/19 17:14 DCW [id number]) Physical Therapy Assessment Impairments Impairments Activity Tolerance,Balance, Functional Mobility,Gait,Pain, Posture,ROM,Soft Tissue Mobility,Strength,Transfers, Vestibular Goals Six Impairment Positive right Yunior-Hallpike Short Term Goal (STG) Pt to tests negative bilaterally during Yunior- Hallpike STG Duration 3 weeks steps climbing Impairment Pt climbs her steps with B UE support Applications System Analyst Goal (LTG) Pt will improve her single leg balance and strength so she can climb her steps x3 without UE support. 07/14 Uses rail, single leg balance still requires UE support LTG Duration 4 weeks Five Impairment Min A with bed mobility Residential Goal (LTG) 06/30 : Pt perform supine to sit with log roll method with CGA MET Pt will perform supine to sit with log roll independently. LTG Duration 4 weeks Four Impairment unable to walk more than 3 blocks Residential Goal (LTG) Pt will amb with no AD on even surfaces > 3 blocks a day LTG Duration 8 weeks Three Impairment Unable to use stationary bike more than 10 mins Residential Goal (LTG) 06/30 pt is able to do 5 mins at a time MET Pt will use her stationary bike more than > 10 mins with no increased of back symptoms LTG Duration 8 weeks Two Impairment Oswetry score of 25/50 Applications System Analyst Goal (LTG) Pt will score <15/50 to enhance daily functiona/ ADL LTG Duration 8 weeks One Impairment Pt is not compliance to HEP Applications System Analyst Goal (LTG) Pt will exhibited indep HEP and improve body mechanics. LTG Duration 4 weeks Assessment Summary Assessment Pt positional testing entirely negative. Pt should continue with her current low back therapy POC, return to vestibular therapy if symptoms return Physical Therapy Plan Frequency and Duration Frequency of Treatment 2x/Week Duration of Treatment 8 weeks Plan of Care Start Date 07/29/19 Plan of Care End Date 09/23/19 Therapeutic Interventions Therapeutic Interventions Balance Training,Canalithic Repositioning,Gait Training, Home Exercise Program,Joint Mobilizations,Manual Therapy, Neuromuscular Re-education, Patient/Caregiver Education, Self-Care/Home Management,Soft Tissue Mobilization,Taping, Therapeutic Activities, Therapeutic Exercises, Vestibular Rehabilitation Modalities Cold Pack/Ice Massage,Electric Stimulation,Hot Packs, Infrared Therapy,Traction- Mechanical,Ultrasound Next Visit Focus/Plan Next Note Type Treatment Note Next Visit Plan Positional re-testing and CRM as indicated, continued treatment for low back pain
--- NOTE | 2019-08-15 13:02 | PT.OTN ---
Current Diagnoses Low back pain (08/13/19) Physical Therapy Treatment Note PT-OP-A Visit Information Start: 04/13/19 17:17 Freq: Status: Active Protocol: Document 08/13/19 13:45 [facility] (Rec: 08/15/19 13:02 REPLACED BY [facility] [email or web address]) Out-Patient Physical Therapy Visit Information Visit Information Visit Type Treatment Note Visit Start Time 13:45 Visit Stop Time 14:30 Total Visit Minutes 45 Visit Number 15 Number of QUARTER DOPER Visits 0 PT-OP-B Current Condition Start: 04/13/19 17:17 Freq: Status: Active Protocol: Document 07/29/19 16:00 DCW (Rec: 07/29/19 17:53 DCW [id number]) Current Condition History of Current Condition Onset Date 1 year ago Current Complaints Chronic low back pain History of Current Condition Patient reports gradual onset of low back pain with R > L in a year duration. She reports no significant injury or back medical history. Pt reports 2 months ago it was aggravated with increased walking duration and that prompted to see her doctor and was undergone MRI. 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 Pt reports difficulty in bed mobility that requires help and as well difficulty in ambulation distance due to increased of back pain. ADDENDUM 07/29/19: Pt presents for a reevaluation for vestibular dysfunction, complaining of a one month history of motion-induced vertigo. Pt reports episodes last 10-15 seconds. Symptoms are provoked by rolling to her right side, getting up from laying during therapy, and bending forward to pull up weeds. Pt denies recent hearing changes, tinnitus, diplopia, dysarthria, discoordination, or decreased mentation/consciousness. Pt does reports a history of this happening one other time long ago, and I went to a doctors office, and he did some procedure on me twice, and that fixed it. Prior Treatments and Tests No reports of low back formal treament, OTC helps a bit. MRI last month. Future Testing and Treatments Planned None reported PT-OP-C Subjective Start: 04/13/19 17:17 Freq: Status: Active Protocol: Document 08/13/19 13:45 [facility] (Rec: 08/15/19 13:02 [facility] [email or web address]) OP-PT Subjective Patient Comments Patient Comments pt notes her vertigo is gone. She is still really sore all over and wonders if it is from the the fall she took out of the chair a few weeks ago PT-OP-F Manual Assessment Start: 04/13/19 17:17 Freq: Status: Active Protocol: Document 04/13/19 17:35 EA (Rec: 04/14/19 15:10 EA [id number]) Manual Assessments Soft Tissue Assessment Soft Tissue Mobility Assessment Lumbar extensors tightness, hip flexors tightness, pectoral muscle tightness. Joint Mobility Assessment Joint Mobility Assessment Hypo lumbar joing mob. PT-OP-J Posture/Palpation/Skin Start: 04/13/19 17:17 Freq: Status: Active Protocol: Document 04/13/19 17:35 EA (Rec: 04/14/19 15:10 EA [id number]) Posture Evaluation Comments Posture Comments Fwd head, rounded shoulders, knocked knees, increased lumbar curvature with abdmominal protrusion Palpation Assessment Location One Palpation Location paralumbars, upper gluteals, QL, SI joint, lumbosacral fascia Palpation Findings Soft Tissue Tightness, Tenderness PT-OP-K Range of Motion Start: 04/13/19 17:17 Freq: Status: Active Protocol: Document 04/13/19 17:35 EA (Rec: 04/14/19 15:10 EA [id number]) Lumbar Spine Range of Motion Lumbar Spine Active Percentage Testing Position Standing Flexion 70 Extension 60 Rotation Left 50 Rotation Right 50 Lateral Flexion Left 50 Lateral Flexion Right 50 ROM Limitations Soft Tissue Tightness,Muscle Weakness,Pain PT-OP-L Special Tests Start: 04/13/19 17:17 Freq: Status: Active Protocol: Document 04/13/19 17:35 EA (Rec: 04/14/19 15:10 EA [id number]) Special Tests Lumbar Spine Special Tests Straight Leg Raise Test Results + Hip Special Tests Piriformis Test Results R + PT-OP-M Strength Start: 04/13/19 17:17 Freq: Status: Active Protocol: Document 04/13/19 17:35 EA (Rec: 04/14/19 15:10 EA [id number]) Trunk Strength Trunk Manual Muscle Testing Testing Position supine and standing Flexion 3- Fair- Extension 4 Good Rotation Left 4 Good Rotation Right 4 Good Lateral Flexion Left 4- Good- Lateral Flexion Right 4- Good- PT-OP-O Vestibular Start: 07/29/19 17:38 Freq: Status: Active Protocol: Document 08/04/19 16:45 DCW (Rec: 08/04/19 17:14 DCW [id number]) Vestibular Assessment Positional Testing Dixon-Hallpike Negative Left,Negative Right Rolling Test Negative Left,Negative Right PT-OP-Q Treatments Start: 04/13/19 17:17 Freq: Status: Active Protocol: Document 08/13/19 13:45 [facility] (Rec: 08/15/19 13:02 [facility] [email or web address]) Cardio Equipment Recumbent Elliptical (Biodex) Duration (Minutes) 7 Resistance 1 Therapeutic Exercises Sitting Exercises 5 Sitting Exercise Name seated diaphragmatic breathing Reps/Minutes x 5 reps 4 Sitting Exercise Name seated shoulder rolls posteriorly Reps/Minutes x 10 reps 3 Sitting Exercise Name seated cervical stretches Comments sidebends and chin tuucks 2 Sitting Exercise Name seated hamstring stretch Reps/Minutes 2 x 30 seconds 1 Sitting Exercise Name Fwd bending; bending with rotation, SF Reps/Minutes x 30SH x 2 reps Comments leaning and touching the floor . Standing Exercises 3 Standing Exercise Name standing hip abduction Reps/Minutes 2 x 10 reps 2 Standing Exercise Name standing calf raises Reps/Minutes 2 x 10 reps 1 Standing Exercise Name mini squats Reps/Minutes 10 Comments with UE support Manual Therapy Treatment Soft Tissue Mobilization 1 Body Location seated STM over the upper traps and SCM Comments good tolerance for manual soft tissue work PT-OP-R Modalities Start: 04/13/19 17:17 Freq: Status: Active Protocol: Document 07/07/19 14:32 HH (Rec: 07/07/19 15:21 HH [email or web address]) Hot Pack/Cold Pack Treatment Hot Pack Location low back and neck Patient Position Hooklying Treatment Duration (minutes) 8 PT-OP-T Assessment and Plan Start: 04/13/19 17:17 Freq: Status: Active Protocol: Document 08/13/19 13:45 [facility] (Rec: 08/15/19 13:02 [facility] [email or web address]) Physical Therapy Assessment Assessment Summary Assessment Continue to focus on strength and mobility and balance. Pt fell off the bed from a seated position approximately 3 weeks ago and irritated her cervical spine. Work both on seated and standing balance Physical Therapy Plan Frequency and Duration Frequency of Treatment 2x/Week Duration of Treatment 8 weeks Plan of Care Start Date 07/29/19 Plan of Care End Date 09/23/19 Next Visit Focus/Plan Next Note Type Treatment Note Next Visit Plan seated and standing balance, ROM and stretching for cervical spine and Lumbar spine
--- NOTE | 2019-08-18 18:30 | PT.OTN ---
Current Diagnoses Low back pain (08/18/19) Physical Therapy Treatment Note PT-OP-A Visit Information Start: 04/13/19 17:17 Freq: Status: Active Protocol: Document 08/18/19 18:23 [facility] (Rec: 08/18/19 18:30 [facility] [email or web address]) Out-Patient Physical Therapy Visit Information Visit Information Visit Type Treatment Note Visit Start Time 13:45 Visit Stop Time 14:45 Total Visit Minutes 60 Visit Number 16 PT-OP-B Current Condition Start: 04/13/19 17:17 Freq: Status: Active Protocol: Document 07/29/19 16:00 DCW (Rec: 07/29/19 17:53 DCW [id number]) Current Condition History of Current Condition Onset Date 1 year ago Current Complaints Chronic low back pain History of Current Condition Patient reports gradual onset of low back pain with R > L in a year duration. She reports no significant injury or back medical history. Pt reports 2 months ago it was aggravated with increased walking duration and that prompted to see her doctor and was undergone MRI. 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 Pt reports difficulty in bed mobility that requires help and as well difficulty in ambulation distance due to increased of back pain. ADDENDUM 07/29/19: Pt presents for a reevaluation for vestibular dysfunction, complaining of a one month history of motion-induced vertigo. Pt reports episodes last 10-15 seconds. Symptoms are provoked by rolling to her right side, getting up from laying during therapy, and bending forward to pull up weeds. Pt denies recent hearing changes, tinnitus, diplopia, dysarthria, discoordination, or decreased mentation/consciousness. Pt does reports a history of this happening one other time long ago, and I went to a doctors office, and he did some procedure on me twice, and that fixed it. Prior Treatments and Tests No reports of low back formal treament, OTC helps a bit. MRI last month. Future Testing and Treatments Planned None reported PT-OP-C Subjective Start: 04/13/19 17:17 Freq: Status: Active Protocol: Document 08/18/19 18:23 [facility] (Rec: 08/18/19 18:30 [facility] [email or web address]) OP-PT Subjective Patient Comments Patient Comments pt reports the manual work done on her neck last visit helped and her low back is still sore but not as severe PT-OP-F Manual Assessment Start: 04/13/19 17:17 Freq: Status: Active Protocol: Document 04/13/19 17:35 EA (Rec: 04/14/19 15:10 EA [id number]) Manual Assessments Soft Tissue Assessment Soft Tissue Mobility Assessment Lumbar extensors tightness, hip flexors tightness, pectoral muscle tightness. Joint Mobility Assessment Joint Mobility Assessment Hypo lumbar joing mob. PT-OP-J Posture/Palpation/Skin Start: 04/13/19 17:17 Freq: Status: Active Protocol: Document 04/13/19 17:35 EA (Rec: 04/14/19 15:10 EA [id number]) Posture Evaluation Comments Posture Comments Fwd head, rounded shoulders, knocked knees, increased lumbar curvature with abdmominal protrusion Palpation Assessment Location One Palpation Location paralumbars, upper gluteals, QL, SI joint, lumbosacral fascia Palpation Findings Soft Tissue Tightness, Tenderness PT-OP-K Range of Motion Start: 04/13/19 17:17 Freq: Status: Active Protocol: Document 04/13/19 17:35 EA (Rec: 04/14/19 15:10 EA [id number]) Lumbar Spine Range of Motion Lumbar Spine Active Percentage Testing Position Standing Flexion 70 Extension 60 Rotation Left 50 Rotation Right 50 Lateral Flexion Left 50 Lateral Flexion Right 50 ROM Limitations Soft Tissue Tightness,Muscle Weakness,Pain PT-OP-L Special Tests Start: 04/13/19 17:17 Freq: Status: Active Protocol: Document 04/13/19 17:35 EA (Rec: 04/14/19 15:10 EA [id number]) Special Tests Lumbar Spine Special Tests Straight Leg Raise Test Results + Hip Special Tests Piriformis Test Results R + PT-OP-M Strength Start: 04/13/19 17:17 Freq: Status: Active Protocol: Document 04/13/19 17:35 EA (Rec: 04/14/19 15:10 EA [id number]) Trunk Strength Trunk Manual Muscle Testing Testing Position supine and standing Flexion 3- Fair- Extension 4 Good Rotation Left 4 Good Rotation Right 4 Good Lateral Flexion Left 4- Good- Lateral Flexion Right 4- Good- PT-OP-O Vestibular Start: 07/29/19 17:38 Freq: Status: Active Protocol: Document 08/04/19 16:45 DCW (Rec: 08/04/19 17:14 DCW [id number]) Vestibular Assessment Positional Testing Yunior-Hallpike Negative Left,Negative Right Rolling Test Negative Left,Negative Right PT-OP-Q Treatments Start: 04/13/19 17:17 Freq: Status: Active Protocol: Document 08/18/19 18:23 [facility] (Rec: 08/18/19 18:30 [facility] [email or web address]) Cardio Equipment Recumbent Elliptical (Biodex) Duration (Minutes) 7 Resistance 1 Therapeutic Exercises Supine Exercises 7 Supine Exercise Name piriformis stretch Comments figure 4 6 Supine Exercise Name bridges with ball squeeze Reps/Minutes 3 secs hold x 10 reps 3 Supine Exercise Name SKTC Reps/Minutes x 30SH x 2 reps each 2 Supine Exercise Name Low trunk rotation Reps/Minutes x 10 reps x2 1 Supine Exercise Name hamstring stretch Reps/Minutes 30x2 Sitting Exercises 5 Sitting Exercise Name seated diaphragmatic breathing Reps/Minutes x 5 reps 4 Sitting Exercise Name seated shoulder rolls posteriorly Reps/Minutes x 10 reps 3 Sitting Exercise Name seated cervical stretches Comments sidebends and chin tuucks 2 Sitting Exercise Name seated hamstring stretch Reps/Minutes 2 x 30 seconds Manual Therapy Treatment Soft Tissue Mobilization 1 Body Location seated STM over the upper traps and SCM Comments good tolerance for manual soft tissue work PT-OP-R Modalities Start: 04/13/19 17:17 Freq: Status: Active Protocol: Document 07/07/19 14:32 HH (Rec: 07/07/19 15:21 HH [email or web address]) Hot Pack/Cold Pack Treatment Hot Pack Location low back and neck Patient Position Hooklying Treatment Duration (minutes) 8 PT-OP-T Assessment and Plan Start: 04/13/19 17:17 Freq: Status: Active Protocol: Document 08/18/19 18:23 [facility] (Rec: 08/18/19 18:30 [facility] [email or web address]) Physical Therapy Assessment Assessment Summary Assessment improved cervcial spine rotation today B, working on increasing lumbar spine mobility and stabilization. Able to tolerate stretches and exercises better now Physical Therapy Plan Next Visit Focus/Plan Next Note Type Treatment Note Next Visit Plan seated and standing balance, ROM and stretching for cervical spine and Lumbar spine
--- NOTE | 2019-08-20 17:05 | PT.OTN ---
Current Diagnoses Low back pain (08/20/19) Physical Therapy Treatment Note PT-OP-A Visit Information Start: 04/13/19 17:17 Freq: Status: Active Protocol: Document 08/20/19 16:03 HH (Rec: 08/20/19 17:04 HH [id number]) Out-Patient Physical Therapy Visit Information Visit Information Visit Type Treatment Note Visit Start Time 16:03 Visit Stop Time 16:45 Total Visit Minutes 42 Visit Number 17 Number of BRIDGE IRONWORKER HELPER Visits 0 PT-OP-B Current Condition Start: 04/13/19 17:17 Freq: Status: Active Protocol: Document 07/29/19 16:00 DCW (Rec: 07/29/19 17:53 DCW [id number]) Current Condition History of Current Condition Onset Date 1 year ago Current Complaints Chronic low back pain History of Current Condition Patient reports gradual onset of low back pain with R > L in a year duration. She reports no significant injury or back medical history. Pt reports 2 months ago it was aggravated with increased walking duration and that prompted to see her doctor and was undergone MRI. 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 Pt reports difficulty in bed mobility that requires help and as well difficulty in ambulation distance due to increased of back pain. ADDENDUM 07/29/19: Pt presents for a reevaluation for vestibular dysfunction, complaining of a one month history of motion-induced vertigo. Pt reports episodes last 10-15 seconds. Symptoms are provoked by rolling to her right side, getting up from laying during therapy, and bending forward to pull up weeds. Pt denies recent hearing changes, tinnitus, diplopia, dysarthria, discoordination, or decreased mentation/consciousness. Pt does reports a history of this happening one other time long ago, and I went to a doctors office, and he did some procedure on me twice, and that fixed it. Prior Treatments and Tests No reports of low back formal treament, OTC helps a bit. MRI last month. Future Testing and Treatments Planned None reported PT-OP-C Subjective Start: 04/13/19 17:17 Freq: Status: Active Protocol: Document 08/20/19 16:03 HH (Rec: 08/20/19 17:04 HH [id number]) OP-PT Subjective Patient Comments Patient Comments I feel much better. My low back still feels a little sore , and I still have issues sitting for long periods of time Patient Reported Progress Improving PT-OP-E Functional Tests Start: 04/13/19 17:17 Freq: Status: Active Protocol: Document 08/20/19 16:03 HH (Rec: 08/20/19 17:05 HH [id number]) Functional Tests 6 Minute Walk Test Distance 800 Device Used none Comments 2 40 seconds rest break Timed Up and Go (TUG) Score 10.5 PT-OP-F Manual Assessment Start: 04/13/19 17:17 Freq: Status: Active Protocol: Document 04/13/19 17:35 EA (Rec: 04/14/19 15:10 EA [id number]) Manual Assessments Soft Tissue Assessment Soft Tissue Mobility Assessment Lumbar extensors tightness, hip flexors tightness, pectoral muscle tightness. Joint Mobility Assessment Joint Mobility Assessment Hypo lumbar joing mob. PT-OP-J Posture/Palpation/Skin Start: 04/13/19 17:17 Freq: Status: Active Protocol: Document 04/13/19 17:35 EA (Rec: 04/14/19 15:10 EA [id number]) Posture Evaluation Comments Posture Comments Fwd head, rounded shoulders, knocked knees, increased lumbar curvature with abdmominal protrusion Palpation Assessment Location One Palpation Location paralumbars, upper gluteals, QL, SI joint, lumbosacral fascia Palpation Findings Soft Tissue Tightness, Tenderness PT-OP-K Range of Motion Start: 04/13/19 17:17 Freq: Status: Active Protocol: Document 04/13/19 17:35 EA (Rec: 04/14/19 15:10 EA [id number]) Lumbar Spine Range of Motion Lumbar Spine Active Percentage Testing Position Standing Flexion 70 Extension 60 Rotation Left 50 Rotation Right 50 Lateral Flexion Left 50 Lateral Flexion Right 50 ROM Limitations Soft Tissue Tightness,Muscle Weakness,Pain PT-OP-L Special Tests Start: 04/13/19 17:17 Freq: Status: Active Protocol: Document 04/13/19 17:35 EA (Rec: 04/14/19 15:10 EA [id number]) Special Tests Lumbar Spine Special Tests Straight Leg Raise Test Results + Hip Special Tests Piriformis Test Results R + PT-OP-M Strength Start: 04/13/19 17:17 Freq: Status: Active Protocol: Document 04/13/19 17:35 EA (Rec: 04/14/19 15:10 EA [id number]) Trunk Strength Trunk Manual Muscle Testing Testing Position supine and standing Flexion 3- Fair- Extension 4 Good Rotation Left 4 Good Rotation Right 4 Good Lateral Flexion Left 4- Good- Lateral Flexion Right 4- Good- PT-OP-O Vestibular Start: 07/29/19 17:38 Freq: Status: Active Protocol: Document 08/04/19 16:45 DCW (Rec: 08/04/19 17:14 DCW [id number]) Vestibular Assessment Positional Testing Yunior-Hallpike Negative Left,Negative Right Rolling Test Negative Left,Negative Right PT-OP-Q Treatments Start: 04/13/19 17:17 Freq: Status: Active Protocol: Document 08/20/19 16:03 HH (Rec: 08/20/19 17:04 HH [id number]) Gym Equipment Shuttle Balance blue Reps/Duration 3 mins x 2 Comments unsupported followed by active weight shift Therapeutic Exercises Sitting Exercises seated trunk AROM Sitting Exercise Name ankle reach and full trunk extension Equipment Used seated Reps/Minutes 5 x 4 Comments and diagonal pattern as well. Manual Therapy Treatment Soft Tissue Mobilization 1 Body Location seated STM over the upper traps and SCM Comments good tolerance for manual soft tissue work PT-OP-R Modalities Start: 04/13/19 17:17 Freq: Status: Active Protocol: Document 08/20/19 16:03 HH (Rec: 08/20/19 17:05 HH [id number]) Hot Pack/Cold Pack Treatment Hot Pack Location low back and neck Patient Position Hooklying Treatment Duration (minutes) 8 PT-OP-T Assessment and Plan Start: 04/13/19 17:17 Freq: Status: Active Protocol: Document 08/20/19 16:03 HH (Rec: 08/20/19 17:04 HH [id number]) Physical Therapy Assessment Goals 6MWT Impairment = 800ft without AD Correction Goal (LTG) Pt will be able to reach 1000 to improve her activity tolerance so she can tolerate 3 blocks. LTG Duration 10/20/18 Assessment Summary Assessment Pt able to ascend stairs 4 and 6 stairs without JUKEBOX CHECKER, requires single JUKEBOX CHECKER to descend . TUG 10.5 sec, 6 MWT 800 ft with 2 40 sec seated rest break. Pt reports her back and neck pain both improved. Discussed current POC to focus on overall strengthening, increasing endurance and balance. Physical Therapy Plan Next Visit Focus/Plan Next Note Type Treatment Note Next Visit Plan seated and standing balance, ROM and stretching for cervical spine and Lumbar spine
--- NOTE | 2019-08-25 16:19 | PT.OTN ---
Current Diagnoses Low back pain (08/25/19) Physical Therapy Treatment Note PT-OP-A Visit Information Start: 04/13/19 17:17 Freq: Status: Active Protocol: Document 08/25/19 14:31 (Rec: 08/25/19 15:15 [id number]) Out-Patient Physical Therapy Visit Information Visit Information Visit Type Treatment Note Visit Start Time 14:31 Visit Stop Time 15:19 Total Visit Minutes 48 Visit Number 18 Number of FILTER PLANT SUPERVISOR Visits 0 PT-OP-B Current Condition Start: 04/13/19 17:17 Freq: Status: Active Protocol: Document 07/29/19 16:00 DCW (Rec: 07/29/19 17:53 DCW [id number]) Current Condition History of Current Condition Onset Date 1 year ago Current Complaints Chronic low back pain History of Current Condition Patient reports gradual onset of low back pain with R > L in a year duration. She reports no significant injury or back medical history. Pt reports 2 months ago it was aggravated with increased walking duration and that prompted to see her doctor and was undergone MRI. 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 Pt reports difficulty in bed mobility that requires help and as well difficulty in ambulation distance due to increased of back pain. ADDENDUM 07/29/19: Pt presents for a reevaluation for vestibular dysfunction, complaining of a one month history of motion-induced vertigo. Pt reports episodes last 10-15 seconds. Symptoms are provoked by rolling to her right side, getting up from laying during therapy, and bending forward to pull up weeds. Pt denies recent hearing changes, tinnitus, diplopia, dysarthria, discoordination, or decreased mentation/consciousness. Pt does reports a history of this happening one other time long ago, and I went to a doctors office, and he did some procedure on me twice, and that fixed it. Prior Treatments and Tests No reports of low back formal treament, OTC helps a bit. MRI last month. Future Testing and Treatments Planned None reported PT-OP-C Subjective Start: 04/13/19 17:17 Freq: Status: Active Protocol: Document 08/25/19 14:31 (Rec: 08/25/19 15:15 [id number]) OP-PT Subjective Patient Comments Patient Comments I was a little bit sore after my last treatment but not as bad as I expected. I have been stiff the last few days but I think it is because of the cold. I think my back is improving. Patient Reported Progress Improving PT-OP-E Functional Tests Start: 04/13/19 17:17 Freq: Status: Active Protocol: Document 08/20/19 16:03 HH (Rec: 08/20/19 17:05 HH [id number]) Functional Tests 6 Minute Walk Test Distance 800 Device Used none Comments 2 40 seconds rest break Timed Up and Go (TUG) Score 10.5 PT-OP-F Manual Assessment Start: 04/13/19 17:17 Freq: Status: Active Protocol: Document 04/13/19 17:35 EA (Rec: 04/14/19 15:10 EA [id number]) Manual Assessments Soft Tissue Assessment Soft Tissue Mobility Assessment Lumbar extensors tightness, hip flexors tightness, pectoral muscle tightness. Joint Mobility Assessment Joint Mobility Assessment Hypo lumbar joing mob. PT-OP-J Posture/Palpation/Skin Start: 04/13/19 17:17 Freq: Status: Active Protocol: Document 04/13/19 17:35 EA (Rec: 04/14/19 15:10 EA [id number]) Posture Evaluation Comments Posture Comments Fwd head, rounded shoulders, knocked knees, increased lumbar curvature with abdmominal protrusion Palpation Assessment Location One Palpation Location paralumbars, upper gluteals, QL, SI joint, lumbosacral fascia Palpation Findings Soft Tissue Tightness, Tenderness PT-OP-K Range of Motion Start: 04/13/19 17:17 Freq: Status: Active Protocol: Document 04/13/19 17:35 EA (Rec: 04/14/19 15:10 EA [id number]) Lumbar Spine Range of Motion Lumbar Spine Active Percentage Testing Position Standing Flexion 70 Extension 60 Rotation Left 50 Rotation Right 50 Lateral Flexion Left 50 Lateral Flexion Right 50 ROM Limitations Soft Tissue Tightness,Muscle Weakness,Pain PT-OP-L Special Tests Start: 04/13/19 17:17 Freq: Status: Active Protocol: Document 04/13/19 17:35 EA (Rec: 04/14/19 15:10 EA [id number]) Special Tests Lumbar Spine Special Tests Straight Leg Raise Test Results + Hip Special Tests Piriformis Test Results R + PT-OP-M Strength Start: 04/13/19 17:17 Freq: Status: Active Protocol: Document 04/13/19 17:35 EA (Rec: 04/14/19 15:10 EA [id number]) Trunk Strength Trunk Manual Muscle Testing Testing Position supine and standing Flexion 3- Fair- Extension 4 Good Rotation Left 4 Good Rotation Right 4 Good Lateral Flexion Left 4- Good- Lateral Flexion Right 4- Good- PT-OP-O Vestibular Start: 07/29/19 17:38 Freq: Status: Active Protocol: Document 08/04/19 16:45 DCW (Rec: 08/04/19 17:14 DCW [id number]) Vestibular Assessment Positional Testing Yunior-Hallpike Negative Left,Negative Right Rolling Test Negative Left,Negative Right PT-OP-Q Treatments Start: 04/13/19 17:17 Freq: Status: Active Protocol: Document 08/25/19 14:31 HH (Rec: 08/25/19 15:15 HH [id number]) Cardio Equipment Recumbent Elliptical (Biodex) Duration (Minutes) 5 Resistance 1 Recumbent Stepper (Sci-Fit) Duration (Minutes) 6 Resistance 5 Gym Equipment Shuttle Rebound B squat Exercise Details 75# Reps/Duration 3x20 Comments cuing for slow, controlled movement Shuttle Balance red Reps/Duration x5 min Comments initial BLOW PIT HELPER f/b unsupported blue Reps/Duration x5 min Comments unsupported static f/b active weight shift Therapeutic Exercises Sitting Exercises seated trunk AROM Sitting Exercise Name ankle reach and full trunk extension Equipment Used seated Reps/Minutes 2x20 Comments and diagonal pattern as well. Manual Therapy Treatment Soft Tissue Mobilization 1 Body Location seated STM over the upper traps and SCM Comments good tolerance for manual soft tissue work PT-OP-R Modalities Start: 04/13/19 17:17 Freq: Status: Active Protocol: Document 08/25/19 14:31 HH (Rec: 08/25/19 16:19 HH [id number]) Hot Pack/Cold Pack Treatment Hot Pack Location low back and neck Patient Position Hooklying Treatment Duration (minutes) 10 Patient Tolerance Good PT-OP-T Assessment and Plan Start: 04/13/19 17:17 Freq: Status: Active Protocol: Document 08/25/19 14:31 HH (Rec: 08/25/19 15:15 HH [id number]) Physical Therapy Assessment Goals 6MWT Impairment = 800ft without AD Sales Representative Aircraft Goal (LTG) Pt will be able to reach 1000 to improve her activity tolerance so she can tolerate 3 blocks. LTG Duration 10/20/18 Assessment Summary Assessment Vitals immediately after recumbent stepper HR 98 bpm, took ~1 min to return to baseline of 80 bpm. Vitals after shuttle squats HR 89 bpm . Pt notes that she feels like she gets SOB easily. Pt has poor activity tolerance and fatigues quickly during. Requires frequent rest breaks. Cont to demonstrate general gross mobility restrictions and deconditioning. Pt kelsey tx well without discomfort. Physical Therapy Plan Next Visit Focus/Plan Next Note Type Treatment Note Next Visit Plan seated and standing balance, ROM and stretching for cervical spine and Lumbar spine
--- NOTE | 2019-09-01 16:36 | PT.OTN ---
Current Diagnoses Low back pain (09/01/19) Physical Therapy Treatment Note PT-OP-A Visit Information Start: 04/13/19 17:17 Freq: Status: Active Protocol: Document 09/01/19 14:31 HH (Rec: 09/01/19 16:35 [id number]) Out-Patient Physical Therapy Visit Information Visit Information Visit Type Treatment Note Visit Start Time 14:31 Visit Stop Time 15:15 Total Visit Minutes 44 Visit Number 19 Number of PHYSICAL INSTRUCTOR Visits 0 PT-OP-B Current Condition Start: 04/13/19 17:17 Freq: Status: Active Protocol: Document 07/29/19 16:00 DCW (Rec: 07/29/19 17:53 DCW [id number]) Current Condition History of Current Condition Onset Date 1 year ago Current Complaints Chronic low back pain History of Current Condition Patient reports gradual onset of low back pain with R > L in a year duration. She reports no significant injury or back medical history. Pt reports 2 months ago it was aggravated with increased walking duration and that prompted to see her doctor and was undergone MRI. 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 Pt reports difficulty in bed mobility that requires help and as well difficulty in ambulation distance due to increased of back pain. ADDENDUM 07/29/19: Pt presents for a reevaluation for vestibular dysfunction, complaining of a one month history of motion-induced vertigo. Pt reports episodes last 10-15 seconds. Symptoms are provoked by rolling to her right side, getting up from laying during therapy, and bending forward to pull up weeds. Pt denies recent hearing changes, tinnitus, diplopia, dysarthria, discoordination, or decreased mentation/consciousness. Pt does reports a history of this happening one other time long ago, and I went to a doctors office, and he did some procedure on me twice, and that fixed it. Prior Treatments and Tests No reports of low back formal treament, OTC helps a bit. MRI last month. Future Testing and Treatments Planned None reported PT-OP-C Subjective Start: 04/13/19 17:17 Freq: Status: Active Protocol: Document 09/01/19 14:31 HH (Rec: 09/01/19 16:35 [id number]) OP-PT Subjective Patient Comments Patient Comments Loulou been walking more and getting stronger recently. Getting in and out of the bed doesnt bother me as much. However, walking uphil the other day does aggravate my back and neck but it resolved the next day. Patient Reported Progress Improving PT-OP-E Functional Tests Start: 04/13/19 17:17 Freq: Status: Active Protocol: Document 08/20/19 16:03 HH (Rec: 08/20/19 17:05 HH [id number]) Functional Tests 6 Minute Walk Test Distance 800 Device Used none Comments 2 40 seconds rest break Timed Up and Go (TUG) Score 10.5 PT-OP-F Manual Assessment Start: 04/13/19 17:17 Freq: Status: Active Protocol: Document 04/13/19 17:35 EA (Rec: 04/14/19 15:10 EA [id number]) Manual Assessments Soft Tissue Assessment Soft Tissue Mobility Assessment Lumbar extensors tightness, hip flexors tightness, pectoral muscle tightness. Joint Mobility Assessment Joint Mobility Assessment Hypo lumbar joing mob. PT-OP-J Posture/Palpation/Skin Start: 04/13/19 17:17 Freq: Status: Active Protocol: Document 04/13/19 17:35 EA (Rec: 04/14/19 15:10 EA [id number]) Posture Evaluation Comments Posture Comments Fwd head, rounded shoulders, knocked knees, increased lumbar curvature with abdmominal protrusion Palpation Assessment Location One Palpation Location paralumbars, upper gluteals, QL, SI joint, lumbosacral fascia Palpation Findings Soft Tissue Tightness, Tenderness PT-OP-K Range of Motion Start: 04/13/19 17:17 Freq: Status: Active Protocol: Document 04/13/19 17:35 EA (Rec: 04/14/19 15:10 EA [id number]) Lumbar Spine Range of Motion Lumbar Spine Active Percentage Testing Position Standing Flexion 70 Extension 60 Rotation Left 50 Rotation Right 50 Lateral Flexion Left 50 Lateral Flexion Right 50 ROM Limitations Soft Tissue Tightness,Muscle Weakness,Pain PT-OP-L Special Tests Start: 04/13/19 17:17 Freq: Status: Active Protocol: Document 04/13/19 17:35 EA (Rec: 04/14/19 15:10 EA [id number]) Special Tests Lumbar Spine Special Tests Straight Leg Raise Test Results + Hip Special Tests Piriformis Test Results R + PT-OP-M Strength Start: 04/13/19 17:17 Freq: Status: Active Protocol: Document 04/13/19 17:35 EA (Rec: 04/14/19 15:10 EA [id number]) Trunk Strength Trunk Manual Muscle Testing Testing Position supine and standing Flexion 3- Fair- Extension 4 Good Rotation Left 4 Good Rotation Right 4 Good Lateral Flexion Left 4- Good- Lateral Flexion Right 4- Good- PT-OP-O Vestibular Start: 07/29/19 17:38 Freq: Status: Active Protocol: Document 08/04/19 16:45 DCW (Rec: 08/04/19 17:14 DCW [id number]) Vestibular Assessment Positional Testing [place]-Hallpike Negative Left,Negative Right Rolling Test Negative Left,Negative Right PT-OP-Q Treatments Start: 04/13/19 17:17 Freq: Status: Active Protocol: Document 09/01/19 14:31 HH (Rec: 09/01/19 16:35 HH [id number]) Cardio Equipment Recumbent Stepper (Sci-Fit) Duration (Minutes) 8 Resistance 5 Gym Equipment Shuttle Rebound B squat Exercise Details 75# Reps/Duration 3x20 Comments cuing for slow, controlled movement Shuttle Balance blue Reps/Duration x8 min Comments unsupported static f/b active weight shift f/b small perturbation by PT on plaform Therapeutic Exercises Sitting Exercises seated trunk AROM Sitting Exercise Name ankle reach and full trunk extension Equipment Used seated Reps/Minutes 2x20 Comments and diagonal pattern as well. Standing Exercises tennis ball release Standing Exercise Name ball at L/S parapsinals Equipment Used tennis ball Comments use weight shift for self massage marching in place Standing Exercise Name unsupported Side bilateral Reps/Minutes 15 x 4 Comments cues on limiting excessive lateral weight shift PT-OP-R Modalities Start: 04/13/19 17:17 Freq: Status: Active Protocol: Document 09/01/19 14:31 HH (Rec: 09/01/19 16:35 HH [id number]) Hot Pack/Cold Pack Treatment Hot Pack Location low back and neck Patient Position Hooklying Treatment Duration (minutes) 8 Patient Tolerance Good PT-OP-T Assessment and Plan Start: 04/13/19 17:17 Freq: Status: Active Protocol: Document 09/01/19 14:31 HH (Rec: 09/01/19 16:35 HH [id number]) Physical Therapy Assessment Goals 6MWT Impairment = 800ft without AD Cushion Padder Goal (LTG) Pt will be able to reach 1000 to improve her activity tolerance so she can tolerate 3 blocks. LTG Duration 10/20/18 Assessment Summary Assessment Pt shows improved activity tolerance. HR maintained at 95 -100 during therex. Pt also show improved balance at balance board (blue). Added tennis ball release for self massage. Physical Therapy Plan Next Visit Focus/Plan Next Note Type Treatment Note Next Visit Plan reassess pt's tolerance from last visit. seated and standing balance, ROM and stretching for cervical spine and Lumbar spine
--- NOTE | 2019-09-03 14:28 | PT.OTN ---
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 She reports no significant injury or back medical history. Pt reports 2 months ago it was aggravated with increased walking duration and that prompted to see her doctor and was undergone MRI. 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 Pt reports difficulty in bed mobility that requires help and as well difficulty in ambulation distance due to increased of back pain. ADDENDUM 07/29/19: Pt presents for a reevaluation for vestibular dysfunction, complaining of a one month history of motion-induced vertigo. Pt reports episodes last 10-15 seconds. Symptoms are provoked by rolling to her right side, getting up from laying during therapy, and bending forward to pull up weeds. Pt denies recent hearing changes, tinnitus, diplopia, dysarthria, discoordination, or decreased mentation/consciousness. Pt does reports a history of this happening one other time long ago, and I went to a doctors office, and he did some procedure on me twice, and that fixed it. Prior Treatments and Tests No reports of low back formal treament, OTC helps a bit. MRI last month. Future Testing and Treatments Planned None reported PT-OP-C Subjective Start: 04/13/19 17:17 Freq: Status: Active Protocol: Document 09/01/19 14:31 HH (Rec: 09/01/19 16:35 HH [id number]) OP-PT Subjective Patient Comments Patient Comments Loulou been walking more and getting stronger recently. Getting in and out of the bed doesnt bother me as much. However, walking uphil the other day does aggravate my back and neck but it resolved the next day. Patient Reported Progress Improving PT-OP-E Functional Tests Start: 04/13/19 17:17 Freq: Status: Active Protocol: Document 08/20/19 16:03 HH (Rec: 08/20/19 17:05 HH [id number]) Functional Tests 6 Minute Walk Test Distance 800 Device Used none Comments 2 40 seconds rest break Timed Up and Go (TUG) Score 10.5 PT-OP-F Manual Assessment Start: 04/13/19 17:17 Freq: Status: Active Protocol: Document 04/13/19 17:35 EA (Rec: 04/14/19 15:10 EA [id number]) Manual Assessments Soft Tissue Assessment Soft Tissue Mobility Assessment Lumbar extensors tightness, hip flexors tightness, pectoral muscle tightness. Joint Mobility Assessment Joint Mobility Assessment Hypo lumbar joing mob. PT-OP-J Posture/Palpation/Skin Start: 04/13/19 17:17 Freq: Status: Active Protocol: Document 04/13/19 17:35 EA (Rec: 04/14/19 15:10 EA [id number]) Posture Evaluation Comments Posture Comments Fwd head, rounded shoulders, knocked knees, increased lumbar curvature with abdmominal protrusion Palpation Assessment Location One Palpation Location paralumbars, upper gluteals, QL, SI joint, lumbosacral fascia Palpation Findings Soft Tissue Tightness, Tenderness PT-OP-K Range of Motion Start: 04/13/19 17:17 Freq: Status: Active Protocol: Document 04/13/19 17:35 EA (Rec: 04/14/19 15:10 EA [id number]) Lumbar Spine Range of Motion Lumbar Spine Active Percentage Testing Position Standing Flexion 70 Extension 60 Rotation Left 50 Rotation Right 50 Lateral Flexion Left 50 Lateral Flexion Right 50 ROM Limitations Soft Tissue Tightness,Muscle Weakness,Pain PT-OP-L Special Tests Start: 04/13/19 17:17 Freq: Status: Active Protocol: Document 04/13/19 17:35 EA (Rec: 04/14/19 15:10 EA [id number]) Special Tests Lumbar Spine Special Tests Straight Leg Raise Test Results + Hip Special Tests Piriformis Test Results R + PT-OP-M Strength Start: 04/13/19 17:17 Freq: Status: Active Protocol: Document 04/13/19 17:35 EA (Rec: 04/14/19 15:10 EA [id number]) Trunk Strength Trunk Manual Muscle Testing Testing Position supine and standing Flexion 3- Fair- Extension 4 Good Rotation Left 4 Good Rotation Right 4 Good Lateral Flexion Left 4- Good- Lateral Flexion Right 4- Good- PT-OP-O Vestibular Start: 07/29/19 17:38 Freq: Status: Active Protocol: Document 08/04/19 16:45 DCW (Rec: 08/04/19 17:14 DCW [id number]) Vestibular Assessment Positional Testing Yunior-Hallpike Negative Left,Negative Right Rolling Test Negative Left,Negative Right PT-OP-Q Treatments Start: 04/13/19 17:17 Freq: Status: Active Protocol: Document 09/03/19 13:45 HH (Rec: 09/03/19 14:28 HH [id number]) Gym Equipment Shuttle Rebound B squat Exercise Details 75# Reps/Duration 3x20 Comments cuing for slow, controlled movement Therapeutic Exercises Supine Exercises tennis ball release Supine Exercise Name on c/S and L/S Side bilateral Equipment Used tennis ball Standing Exercises STS Reps/Minutes 5 x2 Comments for HEP step up Standing Exercise Name with 1 UE support Side bilateral Equipment Used 8 step Reps/Minutes 8 x2 Comments with L rail PT-OP-R Modalities Start: 04/13/19 17:17 Freq: Status: Active Protocol: Document 09/03/19 13:45 HH (Rec: 09/03/19 14:28 HH [id number]) Hot Pack/Cold Pack Treatment Hot Pack Location low back and neck Patient Position Hooklying Treatment Duration (minutes) 10 Patient Tolerance Good PT-OP-T Assessment and Plan Start: 04/13/19 17:17 Freq: Status: Active Protocol: Document 09/03/19 13:45 HH (Rec: 09/03/19 14:28 HH [id number]) Physical Therapy Assessment Goals 6MWT Care Home Goal (LTG) did not assess today. Six Care Home Goal (LTG) !2/5:goal met. Pt denies any vertigo at this point. She does report she occasionally have wobbly gait while she was doing grocery shopping but does not bother her. steps climbing Store Keeper Goal (LTG) 09/03: in progress. Pt is able to climb her 2 steps without rails sometimes. Five Care Home Goal (LTG) 09/03 goal. Pt does not need A for bed mobility. Four Store Keeper Goal (LTG) 09/03 goal met Able to amb without AD ~3 blocks Three Care Home Goal (LTG) 09/03 Pt is able to kelsey her stationary bike >6 mins without increased pain. but she does c/o fatigue easily. Two Care Home Goal (LTG) did not assess. 09/03 Assessment Summary Assessment Pt requested to be d/c from PT who reports she is 82% better than before. 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 Provided HEP sheet to her with tennis ball release, STS, step up and seated trunk flexion/extension. Physical Therapy Plan Discharge Physical Therapy Discharge Reasons Patient Request Discharge Comments see assessment summary.
== END 2019-09-11 14:02 ==
LOC: PHYS 13:45
PROVIDERS: PCP Internal Medicine; Visit Provider Internal Medicine
DX: M54.5 Low back pain (principal)
CPT/HCPCS: 95992; 97010; 97014; 97110; 97112; 97140; 97162; 97164; 97530; 97535; G0283

== ENCOUNTER → 2019-10-01 14:40 | Outpatient (CLI) | payer MEDICARE, OTHER, SELFPAY ==
--- NOTE | 2019-10-01 | DI.US.S_ITS ---
LIMITED ULTRASOUND OF LEFT BREAST AND AXILLA: 10/01/2019 CLINICAL: Patient states she had a fall a couple of weeks ago and now reports a small pencil-eraser sized lump of the right breast. Patient also reports a bruise within the left axilla. Comparison is made to exams dated: 10/01/2019 mammogram, 08/25/2018 mammogram, 08/01/2017 mammogram, 07/30/2016 mammogram, and 07/29/2015 mammogram - [facility]. Color flow ultrasound of the left breast upper aspect and axilla regions was performed. Ambriz scale images of the real-time examination were reviewed. Targeted ultrasound of the upper outer left breast (including at 9:00 position 6 cm from the nipple), left axillary tail, and left axilla at the site of patient's reported focal palpable abnormalities and bruising demonstrates no underlying mass or abnormality. There is no abnormality of the left nipple and retroareolar region by ultrasound. Targeted ultrasound of the left axilla demonstrates a 4.9 cm lymph node which demonstrates a preserved fatty hilum and no suspicious vascularity on Doppler ultrasound but also demonstrates nonfocal borderline cortical thickening of approximately 4 mm. IMPRESSION: PROBABLY BENIGN 1) 4.9 cm left axillary lymph node demonstrating nonfocal borderline cortical thickening without further suspicious findings. This lymph node is likely reactive to adjacent infection/inflammation and is probably benign. A followup ultrasound with possible mammogram in 6 months is recommended to demonstrate stability/resolution. The patient is advised to monitor her breasts and to return sooner for re-evaluation should she feel anything grow or change. 2) Targeted ultrasound demonstrates no other findings to correlate with patient's reported palpable abnormalities and bruising of the left breast and left axilla. Recommend clinical follow for further evaluation and management. This exam was interpreted at Station ID: [id number]. Electronically Signed By: Esvin Osborne M.D. ecl/:10/01/2019 17:02:04 letter sent: Followup Recommended Ultrasound BI-RADS: 3 Probably benign
--- NOTE | 2019-10-01 | DI.US.S_ITS ---
LIMITED ULTRASOUND OF RIGHT BREAST AND AXILLA: 10/01/2019 CLINICAL: Right axillary bruising and right breast palpable concern. Patient returns today to evaluate an asymmetry in the right breast. Comparison is made to exams dated: 10/01/2019 mammogram, 08/25/2018 mammogram, 08/01/2017 mammogram, 07/30/2016 mammogram, and 07/29/2015 mammogram - . Color flow ultrasound of the right breast 9-12 o'clock, and axilla regions was performed. Ambriz scale images of the real-time examination were reviewed. Targeted ultrasound was performed of the superior lateral right breast including in the region of the patient's reported focal palpable area of concern in the superior lateral right breast (indicated by the patient as being at 10:00 position 6 cm from the nipple). No underlying breast mass or abnormality is identified by ultrasound within the superior lateral right breast. There is no ultrasound correlate for the indistinct irregular asymmetry of the superior lateral right breast at middle depth identified on comparison diagnostic mammogram performed earlier today 10/01/2019. Targeted ultrasound of the right axilla demonstrates no ultrasound evidence of right axillary lymphadenopathy. IMPRESSION: PROBABLY BENIGN 1) No ultrasound findings to explain patient's reported focal palpable area of concern in the superior lateral right breast. Recommend clinical follow-up for further evaluation and management of the patient's reported symptoms. 2) No ultrasound correlate for the indistinct irregular asymmetry of the superior lateral right breast at middle depth identified on comparison diagnostic mammogram performed earlier today 10/01/2019. A follow-up mammogram and an ultrasound in 6 months is recommended to demonstrate stability. The patient is advised to monitor her breasts and to return sooner for re-evaluation should she feel anything grow or change. 3) Targeted ultrasound of the right axilla demonstrates no ultrasound evidence of right axillary lymphadenopathy. This exam was interpreted at Station ID: [id number]. Electronically Signed By: Esvin Osborne M.D. ecl/:10/01/2019 16:54:12 letter sent: Followup Recommended Ultrasound BI-RADS: 3 Probably benign
--- NOTE | 2019-10-01 | DI.MG.S_ITS ---
BILATERAL DIGITAL DIAGNOSTIC MAMMOGRAM 3D/2D: 10/01/2019 CLINICAL: Patient states she had a fall a couple of weeks ago and now reports a small pencil-eraser sized lump of the right breast. Patient also reports a bruise within the left axilla and a palpable abnormality of the left breast. Comparison is made to exams dated: 08/25/2018 mammogram, 08/01/2017 mammogram, 05/17/2017 mammogram, and 07/30/2016 mammogram - [facility]. The tissue of both breasts is heterogeneously dense. This may lower the sensitivity of mammography. Patient states she had a fall a couple of weeks ago and now reports a small penci-eraser sized lump of the right breast. This location is identified by a triangular marker overlying the superior lateral right breast on mammography. There is an underlying indistinct irregular asymmetry of the superior lateral right breast at middle depth. Patient also reports a bruise within the left axilla and a palpable abnormality of the medial left breast near 9 o'clock position and left axilla. There is no underlying abnormality on mammography. There are postsurgical changes of the right breast. There is a linear scar marker overlying the lower inner right breast. No other significant masses, calcifications, or other findings are seen in either breast. IMPRESSION: INCOMPLETE: NEEDS ADDITIONAL IMAGING EVALUATION Indistinct irregular asymmetry of the superior lateral right breast at middle depth underlying the site of patient's reported focal palpable concern. A targeted ultrasound is recommended for further evaluation. Patient also reports a bruise within the left axilla and a palpable abnormality of the medial left breast and left axilla. There is no underlying correlating abnormality on mammography. A targeted ultrasound is recommended for further evaluation. This exam was interpreted at Station ID: [id number]. NOTE: For mammograms, a report in lay terms will be sent to the patient. Approximately 15% of breast malignancies will not be visualized mammographically. In the management of a palpable breast mass, a negative mammogram must not discourage biopsy of a clinically suspicious lesion. Electronically Signed By: Esvin Osborne M.D. ecl/:10/01/2019 16:59:27 ACR BI-RADS Category 0: Incomplete [id number]
== END ==
PROVIDERS: PCP Internal Medicine; Visit Provider Internal Medicine
DX: R92.8 Other abnormal and inconclusive findings on diagnostic imaging of breast (principal); N64.89 Other specified disorders of breast
CPT/HCPCS: 76642; 77066; G0279

== ENCOUNTER → 2020-05-03 09:55 | Outpatient (CLI) | payer MEDICARE, OTHER, SELFPAY ==
--- NOTE | 2020-05-03 | DI.US.S_ITS ---
LIMITED ULTRASOUND OF LEFT BREAST AND AXILLA: 05/03/2020 CLINICAL: Lt breast 6 month follow-up and palpable lump. Comparison is made to exams dated: 05/03/2020 mammogram, 10/01/2019 ultrasound, 10/01/2019 mammogram, 08/25/2018 mammogram, and 08/01/2017 mammogram - [facility]. Color flow ultrasound of the left breast 11-12 o'clock, and axilla regions was performed. Ambriz scale images of the real-time examination were reviewed. There is a benign oval left axillary lymph node. This oval left axillary lymph node displays fatty hilum. This abnormality is not significantly changed. No significant abnormalities were seen sonographically in the left breast. IMPRESSION: BENIGN There is no sonographic evidence of malignancy. The oval left axillary lymph node is benign. There is no abnormality seen in the left breast to correspond with the pain in the superior aspect, however, clinical correlation is recommended. A 1 year screening mammogram is recommended. This exam was interpreted at Station ID: [id number]. Electronically Signed By: Tim melton/gopal:05/03/2020 14:00:42 letter sent: Normal Exam Ultrasound BI-RADS: 2 Benign
--- NOTE | 2020-05-03 | DI.MG.S_ITS ---
BILATERAL DIGITAL DIAGNOSTIC MAMMOGRAM 3D/2D SHORT-TERM FOLLOW-UP POST LUMPECTOMY: 05/03/2020 CLINICAL: Patient returns for a 6 month follow up of bilateral breasts. Comparison is made to exams dated: 10/01/2019 mammogram, 08/25/2018 mammogram, and 08/01/2017 mammogram - [facility]. The tissue of both breasts is heterogeneously dense. This may lower the sensitivity of mammography. There are stable benign post operative changes and scar marker in the right breast in the lower inner quadrant. The focal asymmetric density in the right breast in the middle depth in the superior lateral quadrant is no longer seen. No significant masses, calcifications, or other findings are seen in either breast. IMPRESSION: INCOMPLETE: NEEDS ADDITIONAL IMAGING EVALUATION There is no abnormality seen in either breast to correspond with the pain, however, ultrasound is recommended. Targeted ultrasound is recommended for further evaluation, which will be performed on the same day immediately following this exam. This exam was interpreted at Station ID: [id number]. NOTE: For mammograms, a report in lay terms will be sent to the patient. Approximately 15% of breast malignancies will not be visualized mammographically. In the management of a palpable breast mass, a negative mammogram must not discourage biopsy of a clinically suspicious lesion. Electronically Signed By: Tim melton/gopal:05/03/2020 13:56:48 ACR BI-RADS Category 0: Incomplete [id number]
--- NOTE | 2020-05-03 | DI.US.S_ITS ---
LIMITED ULTRASOUND OF RIGHT BREAST: 05/03/2020 CLINICAL: Right breast palpable lump. Comparison is made to exams dated: 05/03/2020 mammogram, 10/01/2019 ultrasound, 10/01/2019 mammogram, 08/25/2018 mammogram, 08/01/2017 mammogram, and 05/17/2017 ultrasound [facility]. Ultrasound of the right breast 12-1 o'clock region was performed. Ambriz scale images of the real-time examination were reviewed. No significant abnormalities were seen sonographically in the right breast. IMPRESSION: NEGATIVE There is no sonographic evidence of malignancy. There is no abnormality seen in the right breast to correspond with the palpable abnormality and pain in the superior aspect, however, clinical correlation is recommended. A 1 year screening mammogram is recommended. This exam was interpreted at Station ID: [id number]. Electronically Signed By: Tim melton/gopal:05/03/2020 14:02:34 Ultrasound BI-RADS: 1 Negative
== END ==
PROVIDERS: PCP Student in an Organized Health Care Education/Training Program; Referring Provider Student in an Organized Health Care Education/Training Program; Visit Provider Student in an Organized Health Care Education/Training Program
DX: R92.8 Other abnormal and inconclusive findings on diagnostic imaging of breast (principal); N64.4 Mastodynia
CPT/HCPCS: 76642; 77066; G0279

== ENCOUNTER → 2020-05-20 10:36 | Outpatient (CLI) | payer MEDICARE, OTHER, SELFPAY ==
--- NOTE | 2020-05-20 10:46 | DI.CT.S_ITS ---
PROCEDURE: CT ABDOMEN PELVIS WO/W CON INDICATIONS: Unspecified abdominal pain TECHNIQUE: Optional 5 mm thick noncontrast images acquired from the diaphragm to the symphysis pubis. After the administration of intravenous contrast, 5 mm thick images acquired from the diaphragm to the symphysis pubis after a 10-minute delay. 2 mm thick coronal and sagittal reformats were then performed of the kidneys and ureters. For radiation dose reduction, the following was used: automated expo appears normal sure control, adjustment of mA and/or kV according to patient size. COMPARISON: None. FINDINGS: Image quality: Excellent. Lung bases: Lung bases are clear. Heart size is normal. Urinary system: Both kidneys are normal in size, without hydronephrosis or nephrolithiasis on pre-contrast images. No perinephric fat stranding. There is normal bilateral renal enhancement. Renal calyces appear normal in morphology when filled with contrast. Opacified portions of both ureters demonstrate normal caliber. Bladder wall thickness is normal. No calcified bladder stones. Other solid organs: Liver is normal in size and enhancement. Gallbladder appears normal . Biliary system is non dilated. Pancreas enhances normally. Spleen is normal in size and enhancement. No adrenal nodules. Peritoneum and bowel: Bowel loops demonstrate normal wall thickness and caliber. No free fluid or air. Generalized colonic obstipation. Nodes and vessels: No retroperitoneal or mesenteric adenopathy by size criteria. Aorta and inferior vena cava are normal in size. Abdominal wall: No ventral hernias. Pelvis: No pathologic free pelvic fluid. No inguinal hernias or adenopathy. Bones: No suspicious bony lesions. No vertebral body compression fractures. IMPRESSION: Generalized colonic obstipation. No urinary tract stone or inflammation is found. Through the abdomen and pelvis no underlying infection or neoplasm is identified. Dictated by: Tomas García M.D. on 05/20/2020 at 12:48 Approved by: Tomas García M.D. on 05/20/2020 at 12:51
== END ==
PROVIDERS: PCP Student in an Organized Health Care Education/Training Program; Referring Provider Student in an Organized Health Care Education/Training Program; Visit Provider Student in an Organized Health Care Education/Training Program
DX: R10.9 Unspecified abdominal pain (principal); K59.00 Constipation, unspecified
CPT/HCPCS: 74178; Q9967

== ENCOUNTER → 2020-06-29 07:54 | Outpatient (CLI) | payer MEDICARE, OTHER, SELFPAY ==
[2020-06-29 11:13] LABS: Prothrombin Time 11.7 SECONDS (10.1-12.7)
[2020-06-29 11:55] LABS: Hepatitis B Surface Antigen NEGATIVE s/c (NEGATIVE)
[2020-06-29 11:56] LABS: Ferritin 120 ng/mL (11-264)
[2020-06-29 12:13] LABS: Hep C Virus Ab w/Reflex Quant NEGATIVE s/c (NEGATIVE)
[2020-06-30 04:48] LABS: Ceruloplasmin 21.5 mg/dL (19.0-39.0); Immunoglobulin A 364 mg/dL (64-422)
[2020-06-30 06:08] LABS: Hepatitis A Antibody Total Positive (Negative); Hepatitis B Surf AB Quant <3.1 mIU/mL (Immunity>9.9)
[2020-06-30 07:48] LABS: Alpha Fetoprotein 5.3 ng/mL (0.0-8.3)
[2020-06-30 18:14] LABS: Tissue Transglutaminase IgA <2 U/mL (0-3)
[2020-07-04 14:10] LABS: Anti Mitochondrial ABY IGG <20.0 Units (0.0-20.0); Smooth Muscle Antibody 5 Units (0-19)
== END ==
PROVIDERS: PCP Student in an Organized Health Care Education/Training Program; Referring Provider Nurse Practitioner Family; Visit Provider Nurse Practitioner Family
DX: R94.5 Abnormal results of liver function studies (principal); R10.84 Generalized abdominal pain; K59.00 Constipation, unspecified
CPT/HCPCS: 36415; 80076; 82105; 82390; 82728; 82784; 83516; 84443; 85025; 85610; 86376; 86706; 86708; 86803; 87340

== ENCOUNTER → 2020-09-13 12:04 | Outpatient (CLI) | payer MEDICARE, OTHER, SELFPAY ==
[2020-09-13 13:39] LABS: Alanine Aminotransferase 45 IU/L (<35); Albumin 4.4 g/dL (3.5-5.0); Albumin Globulin Ratio 1.7 (1.0-2.8); Alkaline Phosphatase 163 U/L (38-126); Aspartate Aminotransferase 36 IU/L (14-36); Bilirubin Total 0.5 mg/dL (0.2-1.3); Bilirubin Unconjugated 0.4 mg/dL (0.0-1.1); Gamma Glutamyl Transpeptidase 200 U/L (12-43); Globulin 2.6 g/dL (1.7-4.1); HEMOLYSIS < 15 (0-50)
== END ==
PROVIDERS: PCP Student in an Organized Health Care Education/Training Program; Referring Provider Student in an Organized Health Care Education/Training Program; Visit Provider Nurse Practitioner Family
DX: R94.5 Abnormal results of liver function studies (principal); K59.00 Constipation, unspecified; Z86.010 Personal history of colon polyps
CPT/HCPCS: 36415; 80076; 82977

== ENCOUNTER → 2021-05-30 14:21 | Outpatient (CLI) | payer MEDICARE, OTHER, SELFPAY ==
--- NOTE | 2021-05-30 | DI.MG.S_ITS ---
BILATERAL DIGITAL SCREENING MAMMOGRAM 3D/2D WITH CAD: 05/30/2021 CLINICAL: Routine screening. Personal history of right breast cancer. Comparison is made to exams dated: 05/03/2020 mammogram, 10/01/2019 mammogram, 05/03/2020 ultrasound, and 05/03/2020 ultrasound - [facility]. Current study was also evaluated with a Computer Aided Detection (CAD) system. There are calcifications in both breasts. There also are benign post operative findings in the right breast. No significant masses, calcifications, or other findings are seen in either breast. There has been no significant interval change. IMPRESSION: BENIGN There is no mammographic evidence of malignancy. A 1 year screening mammogram is recommended. This exam was interpreted at Station ID: [id number]. NOTE: For mammograms, a report in lay terms will be sent to the patient. Approximately 15% of breast malignancies will not be visualized mammographically. In the management of a palpable breast mass, a negative mammogram must not discourage biopsy of a clinically suspicious lesion. Electronically Signed By: Luis Montalvo M.D. at/:05/30/2021 14:58:52 letter sent: Normal Exam ACR BI-RADS Category 2: Benign Finding(s) 3342F
== END ==
PROVIDERS: PCP Student in an Organized Health Care Education/Training Program; Referring Provider Student in an Organized Health Care Education/Training Program; Visit Provider Student in an Organized Health Care Education/Training Program
DX: Z12.31 Encounter for screening mammogram for malignant neoplasm of breast (principal); Z85.3 Personal history of malignant neoplasm of breast
CPT/HCPCS: 77063; 77067

== ENCOUNTER → 2021-09-13 11:39 | Outpatient (CLI) | payer MEDICARE, OTHER, SELFPAY ==
--- NOTE | 2021-09-13 | DI.RAD.S_ITS ---
PROCEDURE: XR SKULL<4V INDICATIONS: SKULL DEFORMITY- BONY MASS TECHNIQUE: 3 view(s) of the skull acquired. COMPARISON: None. FINDINGS: Bones: No fractures. No suspicious bony lesions. Visualized sinuses appear clear. Soft tissues: No soft tissue calcifications. No suspicious soft tissue densities. IMPRESSION: No osseous lesion. If symptoms and/or clinical suspicion for pathology persists, further assessment with advanced imaging (e.g. CT, MRI or bone scan) should be considered. Dictated by: Rae Rodriguez MD, PhD on 09/13/2021 at 16:50 Approved by: Rae Rodriguez MD, PhD on 09/13/2021 at 16:51
== END ==
PROVIDERS: PCP Student in an Organized Health Care Education/Training Program; Referring Provider Student in an Organized Health Care Education/Training Program; Visit Provider Student in an Organized Health Care Education/Training Program
DX: M89.8X8 Other specified disorders of bone, other site (principal)
CPT/HCPCS: 70250

== ENCOUNTER → 2022-06-15 14:41 | Outpatient (CLI) | payer MEDICARE, OTHER, SELFPAY ==
--- NOTE | 2022-06-15 | DI.MG.S_ITS ---
BILATERAL DIGITAL SCREENING MAMMOGRAM 3D/2D WITH CAD: 06/15/2022 CLINICAL: Routine screening. Personal history of right breast cancer. Comparison is made to exams dated: 05/30/2021 mammogram, 05/03/2020 mammogram, and 10/01/2019 mammogram - [facility]. Current study was also evaluated with a Computer Aided Detection (CAD) system. There are benign calcifications in both breasts. There also are benign post operative findings in the right breast. No significant masses, calcifications, or other findings are seen in either breast. There has been no significant interval change. IMPRESSION: BENIGN There is no mammographic evidence of malignancy. A 1 year screening mammogram is recommended. This exam was interpreted at Station ID: [id number]. NOTE: For mammograms, a report in lay terms will be sent to the patient. Approximately 15% of breast malignancies will not be visualized mammographically. In the management of a palpable breast mass, a negative mammogram must not discourage biopsy of a clinically suspicious lesion. Electronically Signed By: Aleksandar lópez/gopal:06/15/2022 17:07:35 letter sent: Normal Exam ACR BI-RADS Category 2: Benign Finding(s) [id number]
== END ==
PROVIDERS: PCP Family Medicine; Referring Provider Family Medicine; Visit Provider Family Medicine
DX: Z12.31 Encounter for screening mammogram for malignant neoplasm of breast (principal); Z85.3 Personal history of malignant neoplasm of breast
CPT/HCPCS: 77063; 77067

== ENCOUNTER → 2023-04-16 11:17 | Outpatient (CLI) | payer MEDICARE, OTHER, SELFPAY ==
--- NOTE | 2023-04-16 | DI.US.S_ITS ---
PROCEDURE: US ABDOMEN COMPLETE INDICATIONS: HIGH AKALINE PHOSPHATASE TECHNIQUE: Real-time scanning was performed of the abdominal and retroperitoneal organs, with image documentation. COMPARISON: [facility], , US ABDOMEN COMPLETE, 04/17/2018, 9:45. FINDINGS: Liver: The liver measures 20.4 cm in length and demonstrates increased echogenicity. Gallbladder: The gallbladder wall measures 2 mm in diameter. No stones, sludge, pericholecystic fluid, or sonographic Moore sign. Biliary ducts: Intrahepatic bile ducts are non-dilated. Extrahepatic bile duct caliber measures 3 mm. Normal is 6-7 mm or less in diameter, or 10 mm or less post-cholecystectomy. Pancreas: Visualized portions of the pancreas are sonographically normal. Spleen: Spleen is normal in size and homogeneous in echotexture. Kidneys: Kidneys are normal in size and echotexture. Right kidney measures 11.3 cm long; left kidney measures 11.6 cm long. No hydronephrosis or nephrolithiasis. No solid masses. Aorta: Visualized aorta is normal in caliber at less than 3 cm. Iliacs: Proximal common iliac arteries are normal in caliber at less than 2.5 cm. IVC: Intrahepatic inferior vena cava is patent. Miscellaneous: No free abdominal fluid. IMPRESSION: 1. Increased hepatic echogenicity noted likely related to fatty infiltration of the liver but other sources of hepatocellular disease cannot be excluded. 2. No cholelithiasis or findings to suggest choledocholithiasis or acute cholecystitis. Dictated by: Gem Chan M.D. on 04/17/2023 at 17:17 Approved by: Gem Chan M.D. on 04/17/2023 at 17:18
== END ==
PROVIDERS: PCP Family Medicine; Referring Provider Family Medicine; Visit Provider Family Medicine
DX: R74.8 Abnormal levels of other serum enzymes (principal)
CPT/HCPCS: 76700

== ENCOUNTER → 2023-06-18 15:30 | Outpatient (CLI) | payer MEDICARE, OTHER, SELFPAY ==
--- NOTE | 2023-06-18 | DI.MG.S_ITS ---
BILATERAL DIGITAL SCREENING MAMMOGRAM 3D/2D WITH CAD POST LUMPECTOMY: 06/18/2023 CLINICAL: Routine screening. Personal history of right breast cancer. Comparison is made to exams dated: 06/15/2022 mammogram, 05/30/2021 mammogram, and 05/03/2020 [facility] [place]. Both breasts are heterogeneously dense, which may obscure small masses (category c / 51-75% glandular tissue). Current study was also evaluated with a Computer Aided Detection (CAD) system. There are benign calcifications in both breasts. There also are benign post operative findings in the right breast. No significant masses, calcifications, or other findings are seen in either breast. There has been no significant interval change. IMPRESSION: BENIGN There is no mammographic evidence of malignancy. A 1 year screening mammogram is recommended. This exam was interpreted at Station ID: [id number]. NOTE: For mammograms, a report in lay terms will be sent to the patient. Approximately 15% of breast malignancies will not be visualized mammographically. In the management of a palpable breast mass, a negative mammogram must not discourage biopsy of a clinically suspicious lesion. Electronically Signed By: Aleksandar lópez/gopal:06/19/2023 07:44:45 letter sent: Normal Exam ACR BI-RADS Category 2: Benign Finding(s) 3342F
== END ==
PROVIDERS: PCP Family Medicine; Referring Provider Family Medicine; Visit Provider Family Medicine
DX: Z12.31 Encounter for screening mammogram for malignant neoplasm of breast (principal); Z85.3 Personal history of malignant neoplasm of breast
CPT/HCPCS: 77063; 77067

== ENCOUNTER 2023-09-18 17:02 | Inpatient (IN) | payer MEDICARE, OTHER, SELFPAY ==
[2023-09-18] VITALS (21 sets, daily range): BP systolic 132–173; BP diastolic 60–74; PULSE 79–95; RESP 22–32; TEMP 37.8–38.9; O2SAT 87–96; BMI 32.5
--- NOTE | 2023-09-18 17:10 | DI.RAD.S_ITS ---
PROCEDURE: XR CHEST 1V INDICATIONS: suspected sepsis TECHNIQUE: One view of the chest was acquired. COMPARISON: [facility], CR, XR CHEST 2V, 06/22/2019, 14:41. FINDINGS: Surgical changes and devices: Midline sternal wires and right axillary mediastinal vascular clips present. Surgical clips noted in the right thyroid bed as well. Lungs and pleura: Heart size enlarged. Moderate vascular congestion present. No significant pleural effusion. No pneumothorax. Mediastinum: Mediastinal contours appear normal. Bones and chest wall: No suspicious bony lesions. Overlying soft tissues appear unremarkable. IMPRESSION: Cardiomegaly and moderate vascular congestion Approved by: Callum Corrales M.D. on 09/18/2023 at 17:43
--- NOTE | 2023-09-18 17:22 | DI.CT.S_ITS ---
PROCEDURE: CT HEAD/BRAIN WO CON INDICATIONS: AMS TECHNIQUE: Noncontrast 4.5 mm thick angled axial sections acquired from the foramen magnum to the vertex, with coronal and sagittal reformats. For radiation dose reduction, the following was used: automated exposure control, adjustment of mA and/or kV according to patient size. COMPARISON: [facility], CT, HEAD WITHOUT CONTRAST, 06/05/2017, 18:35. FINDINGS: Image quality: Diagnostic. CSF spaces: Basal cisterns are patent. No extra-axial fluid collections. Ventricles are normal in size and shape. Brain: No midline shift. No intracranial masses or hemorrhage. Ambriz-white matter interface is normal. Moderate atrophy and white matter chronic ischemic change present. Encephalomalacia and gliosis in the right frontal lobe consistent with old infarct, stable from the prior. Skull and face: Calvarium and visualized facial bones are intact, without suspicious lesions. Sinuses: Visualized sinuses and mastoids are clear. 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 Atrophy and chronic ischemic change without intracranial hemorrhage or mass effect. Approved by: Callum Corrales M.D. on 09/18/2023 at 17:41
[2023-09-18] MEDS: SODIUM CHLORIDE 0.9% 1,000 ML 1000 ML IV (17:28)
[2023-09-18] MEDS: ONDANSETRON 4 MG/2 ML INJ IV (17:31)
[2023-09-18] MEDS: ACETAMINOPHEN IV 1,000 MG/100 ML VIAL 400 MG IV (17:32)
[2023-09-18 17:42] LABS: INR 1.2 (0.9-1.3); Prothrombin Time 14.3 SECONDS (9.4-12.5)
[2023-09-18 17:44] LABS: PTT Partial Thromboplastin Tim 30 SECONDS (25.1-36.5)
[2023-09-18] MEDS: cefTRIAXone 1,000 MG in SODIUM CHLORIDE 0.9% 100 ML 200 MG IV (17:44)
[2023-09-18 17:49] LABS: Bilirubin Urine UA NEGATIVE (NEGATIVE); Color Urine UA YELLOW; Glucose Urine UA TRACE g/dL (Negative); Ketones Urine UA TRACE (NEGATIVE); Leukocyte Esterase Urine UA 1+ (NEGATIVE); Nitrite Urine UA NEGATIVE (Negative); Occult Blood Urine UA 2+ (Negative); Protein Urine UA 2+ (Negative)
[2023-09-18 17:53] LABS: Lactate (Lactic Acid) 1.5 mmol/L (0.7-2.1)
[2023-09-18 17:54] LABS: Add Manual Diff / Slide Review NO; Alanine Aminotransferase 53 IU/L (<35); Albumin 4.3 g/dL (3.5-5.0); Albumin Globulin Ratio 1.3 (1.0-2.8); Alkaline Phosphatase 187 U/L (38-126); Aspartate Aminotransferase 42 IU/L (14-36); BUN Creatinine Ratio 24.6 (6-22); Basophils Absolute Auto 0 /uL (0-100); Basophils Percent Auto 0.4 % (0-2); Bilirubin Total 1.2 mg/dL (0.2-1.3); Blood Urea Nitrogen 15 mg/dL (7-17); Carbon Dioxide 23 mmol/L (22-32); Chloride 100 mmol/L (98-107); Eosinophils Absolute Auto 0 /uL (0-450); Estimated Glomerular Filt Rate > 60 mL/min (>60); Globulin 3.4 g/dL (1.7-4.1); Glucose 242 mg/dL (80-110); HEMOLYSIS < 15 (0-50); Hematocrit 37.4 % (36-46); Hemoglobin 12.6 g/dL (12.0-16.0); Lipase 70 U/L (23-300); Lymphocytes Absolute Auto 800 /uL (1100-4500); Lymphocytes Percent Auto 5.7 % (25-40); Mean Corpuscular HGB Conc 33.7 % (30-36); Mean Corpuscular Hemoglobin 31.3 PG (26-34); Mean Corpuscular Volume 92.9 fL (80-100); Monocytes Absolute Auto 1300 /uL (0-900); Monocytes Percent Auto 9.8 % (3-14); Neutrophils Absolute Auto 11300 /uL (1500-7000); Neutrophils Percent Auto 84.1 % (50-75); Platelet Count 134 X10^3/uL (150-400); Potassium 3.5 mmol/L (3.4-5.1); Red Blood Cell Count 4.03 X10^6/uL (4.0-5.2); Red Cell Distribution Width 13.4 % (11.6-14.8); Sodium 133 mmol/L (137-145); Total Protein 7.7 g/dL (6.3-8.2); White Blood Cell Count 13.4 X10^3/uL (4.5-11.0)
[2023-09-18 18:04] LABS: Appearance Urine UA CLOUDY; Bacteria Urine Many (>30); Culture Indicated Urine Specimen Cultured; RBC Urine 1-5/HPF (0-5/HPF); Squamous Epithelial Cell Urine 0-1 /HPF (0-5/HPF); WBC Urine 30-100/HPF (0-5/HPF)
--- NOTE | 2023-09-18 18:17 | ED.SEPSIS ---
HPI - Sepsis General Chief Complaint: Altered Mental Status Mode of arrival: EMS Source: EMS Limitations: altered mental status Evaluation Sepsis Screen: Possible Sepsis Risk Sepsis Infection Criteria Present: Suspected New Infection Narrative: 87yoF with PMH HTN, HLD, NIDDM, mild memory impairment presents by EMS from home for 1 day of altered mental status. Patient reportedly was feeling poorly last night with generalized weakness after her dinner, but family put her to bed. Daughter states that this morning the patient seemed even more confused than normal and was having significant trouble ambulating. Patient normally has full conversations, asks questions about daughter's life, and is ambulatory without assistance at baseline. Patient History Social History Smoking Status: Never smoker Smoking Status: Never smoker alcohol intake frequency: 0-2 drinks per day Alcohol type: wine Substance Use Type: does not use Exam Initial Vital Signs Initial Vital Signs: Vital Signs Pulse Oximetry 92 09/18/23 17:06 Const: Awake, alert, ill-appearing, nontoxic Eyes: PERRL, EOMI, conjunctiva normal ENT: Atraumatic, dentition normal, mucous membranes moist Cardiac: regular rate, regular rhythm, no edema RESP: unlabored, inspiratory crackles bilaterally GI: Soft, minimal left lower quadrant tenderness to deep palpation, no rebound, no guarding MSK: Atraumatic, full range of motion, pulses equal Skin: Warm, Dry, intact, no rashes Neuro: AO x1, CN II-XII grossly intact, moves all extremities Course Orders Ordered: ED Orders 09/18/23 17:10 XR chest 1V Stat EKG-12 Lead Stat RT Consult Eval and Treat NOW 09/18/23 17:21 Complete Blood Count AUTO DIFF Stat Comprehensive Metabolic Panel Stat Lactate (Lactic Acid) Stat Lipase Stat PTT Partial Thromboplastin Alon Stat Procalcitonin Stat Prothrombin Time INR Stat 09/18/23 17:22 CT head/brain wo con Stat 09/18/23 17:30 Respiratory Panel (Film Array) Stat Urinalysis and Microscopic Stat Urine Culture Stat 09/18/23 17:46 Blood Culture Stat 09/18/23 18:18 CT abdomen pelvis wo con Stat 09/18/23 18:20 BNP [NT-proBNP (BNP-Adult 18+)] Stat Trop I [Troponin I] Stat Ondansetron HCl (Ondansetron 4 Mg Odt) 4 mg SL NOW PRN PRN Reason: Nausea And Vomiting Discontinued Medications Furosemide (Furosemide 40 Mg/4 Ml Vial) 40 mg IV NOW ONE Stop: 09/18/23 19:03 Last Admin: 09/18/23 19:11 Dose: 40 mg Documented By: VENUS Sodium Chloride (Normal Saline 0.9%) 1,000 mls @ 1,000 mls/hr IV BOLUS ONE Stop: 09/18/23 18:08 Last Infusion: 09/18/23 18:24 Dose: Infused Documented By: Admin: 09/18/23 17:28 Dose: 1,000 mls/hr Documented By: VENUS Ceftriaxone Sodium 1,000 mg/ (Sodium Chloride) 100 mls @ 200 mls/hr IV NOW ONE Stop: 09/18/23 17:23 Last Infusion: 09/18/23 18:23 Dose: Infused Documented By: Admin: 09/18/23 17:44 Dose: 200 mls/hr Documented By: VENUS Acetaminophen (Ofirmev) 1,000 mg in 100 mls @ 400 mls/hr IV NOW ONE Stop: 09/18/23 17:38 Last Infusion: 09/18/23 18:15 Dose: Infused Documented By: Admin: 09/18/23 17:32 Dose: 400 mls/hr Documented By: VENUS Ondansetron HCl (Ondansetron 4 Mg/2 Ml Inj) 4 mg IV NOW PRN PRN Reason: Nausea And Vomiting Last Admin: 09/18/23 17:31 Dose: 4 mg Documented By: VENUS Vital Signs Vital signs: Vital Signs - 8 hr 09/18/23 17:06 09/18/23 17:08 09/18/23 17:08 Temperature Pulse Rate 91 H Respiratory Rate Blood Pressure 162/74 H Pulse Oximetry 92 92 Oxygen Delivery Method 09/18/23 17:09 09/18/23 17:15 09/18/23 17:15 Temperature 100.9 F H Pulse Rate 95 H 89 Respiratory Rate 22 28 H Blood Pressure 162/74 H 156/73 H Pulse Oximetry 91 93 Oxygen Delivery Method Room Air 09/18/23 17:30 09/18/23 17:30 09/18/23 18:00 Temperature Pulse Rate 90 90 Respiratory Rate 32 H Blood Pressure 173/73 H Pulse Oximetry 94 92 Oxygen Delivery Method Room Air 09/18/23 18:03 09/18/23 18:03 09/18/23 18:15 Temperature 102.0 F H 101.7 F H Pulse Rate 87 85 Respiratory Rate 26 H 27 H Blood Pressure 146/70 H Pulse Oximetry 91 89 L Oxygen Delivery Method 09/18/23 18:16 09/18/23 18:16 09/18/23 18:36 Temperature 101.7 F H 101.1 F H Pulse Rate 86 82 Respiratory Rate 31 H 26 H Blood Pressure 166/67 H Pulse Oximetry 92 Oxygen Delivery Method Room Air 09/18/23 18:45 09/18/23 18:48 09/18/23 18:48 Temperature 101.1 F H 100.9 F H Pulse Rate 84 82 Respiratory Rate 25 H 25 H Blood Pressure 132/64 Pulse Oximetry 94 92 Oxygen Delivery Method Room Air 09/18/23 19:00 09/18/23 19:00 09/18/23 19:15 Temperature 100.9 F H 100.8 F H Pulse Rate 81 81 Respiratory Rate 22 25 H Blood Pressure 132/60 Pulse Oximetry 93 93 Oxygen Delivery Method Room Air 09/18/23 19:30 09/18/23 19:30 09/18/23 19:45 Temperature 100.4 F H 100.2 F H Pulse Rate 82 79 Respiratory Rate 26 H 22 Blood Pressure 144/64 H Pulse Oximetry 92 87 L Oxygen Delivery Method Room Air Sepsis Evaluation (ED) Triage Screening Sepsis Screen: Possible Sepsis Risk Level 1 - Infection Sepsis Infection Criteria Present: Suspected New Infection Response It is my opinion that his patient have a likely infectious etiology for meeting sepsis criteria: Does Fluid calculation based on 30 mL/kg within 1hr of criteria: IBW used due to BMI>30 Antibiotics initiated within 1 hr of Sepis dx: Yes Tissue Perfusion Reassessed within 6 hrs of infusion start time: Yes Date of Tissue Perfusion Reassessment completed: 09/18/23 Time Tissue Perfusion Reassessment completed: 20:00 MDM - Sepsis Differential Diagnosis Current stage of sepsis: sepsis Possible source sepsis: genitourinary Differential diagnosis: hypovolemia, pneumonia and SIRS Condition is:: Improved Lab Data 09/18/23 17:21 09/18/23 17:21 Labs: Lab Results 12/20/23 12/20/23 12/20/23 Range/Units 17:21 17:30 18:20 WBC 13.4 H (4.5-11.0) X10^3/uL RBC 4.03 (4.0-5.2) X10^6/uL Hgb 12.6 (12.0-16.0) g/dL Hct 37.4 (36-46) % MCV 92.9 (80-100) fL MCH 31.3 (26-34) PG MCHC 33.7 (30-36) % RDW 13.4 (11.6-14.8) % Plt Count 134 L (150-400) X10^3/uL Neut % (Auto) 84.1 H (50-75) % Lymph % (Auto) 5.7 L (25-40) % [place] % (Auto) 9.8 (3-14) % Eos % (Auto) 0.0 L (2-4) % Baso % (Auto) 0.4 (0-2) % Neut # (Auto) 09965 H (1924-3929) /uL Lymph # (Auto) 800 L (2101-0295) /uL [place] # (Auto) 1300 H (0-900) /uL Eos # (Auto) 0 (0-450) /uL Baso # (Auto) 0 (0-100) /uL PT 14.3 H (9.4-12.5) SECONDS INR 1.2 (0.9-1.3) APTT 30 (25.1-36.5) SECONDS Sodium 133 L (137-145) mmol/L Potassium 3.5 (3.4-5.1) mmol/L Chloride 100 (98-107) mmol/L Carbon Dioxide 23 (22-32) mmol/L BUN 15 (7-17) mg/dL Creatinine 0.61 (0.52-1.04) mg/dL Estimated GFR > 60 (>60) mL/min BUN/Creatinine Ratio 24.6 H (6-22) Glucose 242 H (80-110) mg/dL Lactate 1.5 (0.7-2.1) mmol/L Calcium 12.0 H (8.4-10.2) mg/dL Total Bilirubin 1.2 (0.2-1.3) mg/dL AST 42 H (14-36) IU/L ALT 53 H (<35) IU/L Alkaline Phosphatase 187 H (38-126) U/L Troponin I < 0.012 (0.01-0.034) ng/mL NT-Pro-B Natriuret Pep 955 H (<450) pg/mL Total Protein 7.7 (6.3-8.2) g/dL Albumin 4.3 (3.5-5.0) g/dL Globulin 3.4 (1.7-4.1) g/dL Albumin/Globulin Ratio 1.3 (1.0-2.8) Lipase 70 (23-300) U/L Procalcitonin 0.30 (<0.5) ng/mL Urine Color Yellow Urine Appearance Cloudy Urine pH 6.0 (4.5-8.0) Ur Specific [place] 1.020 (1.000-1.035) Urine Protein 2+ H (Negative) Urine Glucose (UA) Trace H (Negative) g/dL Urine Ketones Trace H (NEGATIVE) Urine Occult Blood 2+ H (Negative) Urine Nitrate Negative (Negative) Urine Bilirubin Negative (NEGATIVE) Urine Urobilinogen 2.0 H (0.2) E.U./dL Ur Leukocyte Esterase 1+ H (NEGATIVE) Urine RBC 1-5/hpf (0-5/HPF) Urine WBC 30-100/hpf H (0-5/HPF) Ur Squamous Epith Cells 0-1 /hpf (0-5/HPF) Urine Bacteria Many (>30) H (None) Ur Culture Indicated? Specimen cultured Micro UA Comment Chlamy pneumoniae PCR Not detected (Not Detect) Adenovirus (PCR) Not detected (Not Detect) B.parapertussis DNA PCR Not detected (Not Detecte) Coronavirus OC43 (PCR) Not detected (Not Detect) Coronavirus HKU1 (PCR) Not detected (Not Detect) Coronavirus 229E (PCR) Not detected (Not Detect) SARS-CoV-2 (PCR) Not detected (Not Detecte) Coronavirus NL63 (PCR) Not detected (Not Detect) Human Metapneumovir PCR Not detected (Not Detect) Influenza Type A (PCR) Not detected (Not Detect) Influenza Type B (PCR) Not detected (Not Detect) M. pneumoniae (PCR) Not detected (Not Detect) Parainfluenza 1 (PCR) Not detected (Not Detect) Parainfluenza 2 (PCR) Not detected (Not Detect) Parainfluenza 3 (PCR) Not detected (Not Detect) Parainfluenza 4 (PCR) Not detected (Not Detect) RSV (PCR) Not detected (Not Detect) Entero/Rhino (PCR) Not detected (Not Detect) MDM Narrative Medical decision making narrative: Ill-appearing but nontoxic patient presenting with altered mental status. Found to be febrile, tachypneic on arrival. Sepsis suspected and bundle ordered by daytime provider with Rocephin IV ordered for antibiotic coverage. Per triage report there was question of if patient had right-sided weakness, however on my exam patient is confused but otherwise has no focal neurologic deficit, she moves right and left sides equally and has equal strength. Family reports a global weakness and confusion rather than focal weakness. Nursing reports that patient's urine is foul-smelling and cloudy, suspect urologic etiology of infection. Laboratory work is significant for elevated BNP, WBC count 13.5, calcium 12.0, BNP 955, troponin undetectable, glucose 242, AST 42, ALT 53, alk-phos 187. Patient's liver enzymes are not significantly changed from baseline. Chest x-ray does show volume overload and cardiomegaly. CT of the brain shows chronic findings without acute process. Due to patient's reported abdominal pain a CT of the abdomen and pelvis was ordered, which showed constipation, bilateral perinephric stranding concerning for possible pyelonephritis. Patient was given IV Lasix for volume overload in his already received IV antibiotics. Family informed of lab and imaging findings, recommended admission for further treatment. Family is in agreement at this time. Discharge Plan Departure Patient Disposition: Admitted As Inpatient Clinical Impression: Acute metabolic encephalopathy, Acute pyelonephritis, Cardiac volume overload Sepsis Qualifiers: Sepsis type: sepsis due to unspecified organism Sepsis acute organ dysfunction status: unspecified Qualified Code(s): A41.9 - Sepsis, unspecified organism Constipation Qualifiers: Constipation type: unspecified constipation type Qualified Code(s): K59.00 - Constipation, unspecified Admit Date/Time: 09/18/23 19:48 Admit Provider: Andrew Garcia
--- NOTE | 2023-09-18 18:18 | DI.CT.S_ITS ---
PROCEDURE: CT ABDOMEN PELVIS WO CON INDICATIONS: LLQ ABDOMINAL PAIN, SEPSIS TECHNIQUE: Noncontrast 5 mm thick sections acquired from the diaphragms to the symphysis. 5 mm coronal and sagittal reformats were then performed. For radiation dose reduction, the following was used: automated exposure control, adjustment of mA and/or kV according to patient size. COMPARISON: None. FINDINGS: Image quality: Excellent. ABDOMEN: Lung bases: Mild dependent atelectasis.. Heart size is normal. Solid organs: Liver is normal in size. Gallbladder is unremarkable . Pancreas is normal in contours. Spleen is normal in size. No adrenal nodules. Kidneys are normal in size, without hydronephrosis or nephrolithiasis. Nonspecific perinephric stranding bilaterally Peritoneum and bowel: Unenhanced bowel loops demonstrate normal wall thickness and caliber. Large burden of stool throughout the colon. No free fluid or air. Nodes and vessels: No retroperitoneal or mesenteric adenopathy by size criteria. Aorta and inferior vena cava are normal in caliber. Atherosclerotic vascular calcifications. Miscellaneous: No ventral hernias. PELVIS: Genitourinary: Decompressed with a Aldridge catheter in place, limiting evaluation. Miscellaneous: No inguinal hernias or adenopathy. Bones: No suspicious bony lesions. No vertebral body compression fractures. Degenerative changes of the spine. Median sternotomy wires are partially visualized. IMPRESSION: 1. Large burden of stool throughout the colon. Correlate for constipation. 2. Bilateral perinephric stranding. This is nonspecific and can sometimes be seen with pyelonephritis, recommend correlation with urinalysis. Dictated by: Hema Edwards M.D. on 09/18/2023 at 19:38 Approved by: Hema Edwards M.D. on 09/18/2023 at 19:42
[2023-09-18 18:35] LABS: Adenovirus Not Detected (Not Detect); B. parapertussis Not Detected (Not Detecte); Bordetella pertussis Not Detected (Not Detect); Chlamydophila pneumoniae Not Detected (Not Detect); Coronavirus 229E Not Detected (Not Detect); Coronavirus HKU1 Not Detected (Not Detect); Coronavirus NL 63 Not Detected (Not Detect); Coronavirus OC43 Not Detected (Not Detect); Human Metapneumovirus Not Detected (Not Detect); Human Rhinovirus/Enterovirus Not Detected (Not Detect); Influenza A Not Detected (Not Detect); Influenza B Not Detected (Not Detect); Mycoplasma pneumoniae Not Detected (Not Detect); Parainfluenza Virus 1 Not Detected (Not Detect); Parainfluenza Virus 2 Not Detected (Not Detect); Parainfluenza Virus 3 Not Detected (Not Detect); Parainfluenza Virus 4 Not Detected (Not Detect); Respiratory Syncytial Virus Not Detected (Not Detect); SARS- CoV-2 Not Detected (Not Detecte)
--- NOTE | 2023-09-18 18:52 | PC.NURSE ---
Patient reports increased SOB. Provider Corbin made aware.
[2023-09-18] MEDS: FUROSEMIDE 40 MG/4 ML VIAL IV (19:11)
[2023-09-18 19:33] LABS: NT-proBNP (BNP-Adult 18+) 955 pg/mL (<450); Troponin I < 0.012 ng/mL (0.01-0.034)
--- NOTE | 2023-09-18 21:25 | DI.ECHO.S_ITS ---
[facility] +---------+ : : [address] : : : : [id number] : : : : Phone: [phone] Echocardiogram Report + + :Name: MARC JO Study Date: 09/19/2023 Height: 66 in : :[facility] ReadingLocation: Weight: 201 lb : : Gender: Female BSA: 2.0 m2 : :: 1935 Age: 87 yrs BP: 147/71 mmHg: :Reason For Study: VOLUME OVERLOAD : :Ordering Physician: ZOË, : :YAYA Vasquez Performed By: Qiana Whitney : :Referring: YAYA CAMP : + + Interpretation Summary 1) Mildly increased left ventricular thickness with normal size, normal wall motion, and normal systolic function (EF 60-65%). 2) Normal right ventricular size and function. 3) No significant valvular abnormalities. 5) Compared to the Echo done 03/04/2018, no significant change. Procedure: A two-dimensional transthoracic echocardiogram with color flow and Doppler was performed. The study quality was technically adequate. Comparison is made with the echocardiogram of 03/04/2018. The patient was in sinus rhythm with heart rates between 78-93 bpm during the exam. Left Ventricle: The left ventricle is normal in size. There is mild concentric left ventricular hypertrophy. The ejection fraction is estimated to be 60-65%. Left ventricular systolic function appears normal without focal wall motion abnormalities. Diastolic parameters suggest a relaxation abnormality of the left ventricle, consistent with probable normal filling pressures. Right Ventricle: The right ventricle is normal in size and function. Atria: The left atrial size is normal. Right atrial size is normal. There is no Doppler evidence for an interatrial shunt. Mitral Valve: There is mild mitral annular calcification. The mitral valve leaflets appear mildly thickened, but open well. There is trace mitral regurgitation. Aortic Valve: The aortic valve is trileaflet. The aortic valve opens well. There is no aortic valve stenosis. No aortic regurgitation is present. Tricuspid Valve: The tricuspid valve is normal in structure and function. There is trace tricuspid regurgitation. The right ventricular systolic pressure is estimated to be at least 25 mmHg based on an estimated right atrial pressure of 3 mm Hg. Pulmonic Valve: The pulmonic valve leaflets are thin and pliable; valve motion is normal. There is no pulmonic valvular regurgitation. Great Vessels: The aortic root is normal size. The ascending aorta could not be visualized. The IVC is of normal diameter and collapses greater than 50% with a sniff. This suggests a low right atrial pressure of 3 mm Hg. Pericardium/ Pleura There is no pericardial effusion. There is no pleural effusion. MMode/2D Measurements & Calculations LVIDd: 4.5 cm LVOT diam: 1.9 cm LVIDs: 2.8 cm Ao root diam: 3.2 cm FS: 38.4 % Ao Arch Diam (Prox Trans): 2.0 cm EPSS: 0.70 cm IVSd: 1.4 cm LVPWd: 1.1 cm LV ahuja. diameter/BSA (cm/m^2): 2.3 LV sys. diameter/BSA (cm/m^2): 1.4 LA A2 area: 21.9 cm2 RA long axis: 4.5 cm LA A4 area: 15.8 cm2 RA area: 14.4 cm2 LA length (vol): 4.8 cm RA vol: 38.8 ml LA vol: 60.9 ml RA : 19.4 ml/m2 LA vol index: 30.4 ml/m2 IVC diam: 2.0 cm RVD1 (basal): 3.4 cm RVD2 (mid): 2.6 cm TAPSE: 1.9 cm Doppler Measurements & Calculations Ao V2 max: 162.5 cm/sec LVOT Max Ranjit: 121.3 cm/sec Ao V2 mean: 117.6 cm/sec LV V1 max P.9 mmHg Ao max P.6 mmHg LV V1 VTI: 23.7 cm Ao mean P.0 mmHg CAIO(I,D): 2.0 cm2 Ao V2 VTI: 34.0 cm CAIO(V,D): 2.1 cm2 sev ratio: 0.70 CAIO indexed to BSA (cm^2/m^2): 0.99 MV E max ranjit: 109.4 cm/sec TR max ranjit: 236.2 cm/sec MV A max ranjit: 103.9 cm/sec TR max P.3 mmHg MV E/A: 1.1 PA V2 max: 80.2 cm/sec Med Peak E' Ranjit: 5.1 cm/sec PA V2 mean: 59.5 cm/sec E/E' med: 21.6 PA mean P.5 mmHg Lat Peak E' Ranjit: 6.6 cm/sec PA pr(Accel): 36.2 mmHg E/E' lat: 16.6 E/e' average: 19.1 MV dec time: 0.21 sec SV(LVOT): 67.4 ml Reading Physician:01:26 PM
[2023-09-19 01:00] VITALS: BP 130/64; PULSE 78; RESP 17; TEMP 35.8; O2SAT 97
[2023-09-19 04:15] LABS: Add Manual Diff / Slide Review NO; Basophils Absolute Auto 0 /uL (0-100); Basophils Percent Auto 0.3 % (0-2); Eosinophils Absolute Auto 0 /uL (0-450); Eosinophils Percent Auto 0.1 % (2-4); Hemoglobin 12.5 g/dL (12.0-16.0); Lymphocytes Absolute Auto 800 /uL (1100-4500); Lymphocytes Percent Auto 6.8 % (25-40); Mean Corpuscular HGB Conc 33.9 % (30-36); Mean Corpuscular Hemoglobin 31.3 PG (26-34); Mean Corpuscular Volume 92.4 fL (80-100); Monocytes Absolute Auto 1300 /uL (0-900); Monocytes Percent Auto 10.7 % (3-14); Neutrophils Absolute Auto 9700 /uL (1500-7000); Neutrophils Percent Auto 82.1 % (50-75); Platelet Count 130 X10^3/uL (150-400); Red Cell Distribution Width 13.3 % (11.6-14.8); White Blood Cell Count 11.9 X10^3/uL (4.5-11.0)
[2023-09-19 04:36] LABS: Alanine Aminotransferase 45 IU/L (<35); Albumin 3.9 g/dL (3.5-5.0); Albumin Globulin Ratio 1.2 (1.0-2.8); Alkaline Phosphatase 156 U/L (38-126); Aspartate Aminotransferase 37 IU/L (14-36); BUN Creatinine Ratio 19.7 (6-22); Blood Urea Nitrogen 13 mg/dL (7-17); Calcium 11.3 mg/dL (8.4-10.2); Carbon Dioxide 25 mmol/L (22-32); Chloride 102 mmol/L (98-107); Estimated Glomerular Filt Rate > 60 mL/min (>60); Globulin 3.2 g/dL (1.7-4.1); Glucose 246 mg/dL (80-110); HEMOLYSIS < 15 (0-50); Potassium 3.4 mmol/L (3.4-5.1); Sodium 134 mmol/L (137-145); Total Protein 7.1 g/dL (6.3-8.2)
[2023-09-19 06:00] VITALS: BP 144/71; PULSE 91; RESP 18; TEMP 36.9; O2SAT 95
[2023-09-19] MEDS: LEVOTHYROXINE 112 MCG TABLET PO (06:57)
--- NOTE | 2023-09-19 08:15 | PC.NURSE ---
Addendum entered by Tessa Martin R.N. 09/19/23 12:00: Patients blood sugar is 277. Patient tried to have a bowel movement on the commode as she also did well transferring. She had little success. She states that sometimes she uses miralax. Will call and see about getting a ss insulin for patient and some miralax prn. Addendum entered by Tessa Martin R.N. 09/19/23 11:43: Family is in patients room, daughter talked to drug abuse social worker Sonam. Patient will also be working with physical therapy sometime today. Original Note: Patient is pleasantly confused. She does not know her name or year when asked. She has been repositioned to the center of her bed and is resting on her r.side. BS are decreased and patient did have a momentary cough, but this subsided. She is comfortable and denies pain.
[2023-09-19 08:18] VITALS: BP 147/71; PULSE 92; RESP 16; TEMP 36.1
[2023-09-19] MEDS: POTASSIUM CHLORIDE 20 MEQ TAB 40 MEQ PO (08:28)
--- NOTE | 2023-09-19 09:14 | DI.RAD.S_ITS ---
PROCEDURE: XR CHEST 1V INDICATIONS: fever TECHNIQUE: One view of the chest was acquired. COMPARISON: [facility], , CHEST 1 VIEW, 01/01/2018, 11:53. [facility], LAURA, XR CHEST 1V, 09/18/2023, 17:43. FINDINGS: Surgical changes and devices: Status post median sternotomy. Lungs and pleura: No focal consolidation or mass. No pleural effusion or pneumothorax. Prominent perihilar vasculature is similar to multiple prior x-rays and probably chronic. Mediastinum: Mediastinal contours appear normal. Heart size is normal. Bones and chest wall: No suspicious bony lesions. Overlying soft tissues appear unremarkable. IMPRESSION: No acute abnormality suspected. Prominent interstitial markings appear similar to multiple prior studies. Mild CHF is a possibility. Dictated by: Lyndon Toney M.D. on 09/19/2023 at 9:46 Approved by: Lyndon Toney M.D. on 09/19/2023 at 9:48
[2023-09-19 09:38] LABS: NT-proBNP (BNP-Adult 18+) 1250 pg/mL (<450)
[2023-09-19] MEDS: cefTRIAXone 1,000 MG in SODIUM CHLORIDE 0.9% 100 ML 200 MG IV (10:09)
[2023-09-19] MEDS: CHOLECALCIFEROL (VITAMIN D3) 1,000 UNIT TABLET 1000 UNIT PO (10:09)
[2023-09-19] MEDS: glipiZIDE 5 MG TABLET 2.5 MG PO ×2 (12:44→17:07)
[2023-09-19] MEDS: METFORMIN HCL 500 MG TABLET 1000 MG PO ×2 (12:45→20:10)
--- NOTE | 2023-09-19 13:50 | CM.DANOTE ---
Addendum entered by ADY Moss 09/19/23 14:22: ADD: Need PASRR if SNF. May need [facility]. Original Note: Initial DCP Assessment Note Pt is an 87 yo female, resident of [place], arrives with AMS, admitted INPT, H+P pending. PCP: Ora Lackey Payer: MARKELL/Olesya Reviewed chart, met w/patient briefly then with her daughter/DPOA Ashlee, introduced self and role. PT/OT evals pending. Patient lives w/spouse Ryan in [place], spouse is 92 yo, daughter states both are quite fragile. Patient lives a sedentary lifestyle per daughter, is mostly indp w/ADLs but does need encouragement to get up for walks, make it to the BR, etc. Patient is incontinent of urine and wears depends. Ambulates w/Assisted device (?) Spouse cooks . Patient/sp have hired a housekeeper nanny. Daughter available to visit often, says she has noticed her parents have declined and plans to contact [facility] caregiving agency in [place] very soon. Patient/sp have the financial means to pay for in home care. No hx HH or SNF according to daughter. Daughter requests referral to [facility], says patient would benefit from short term rehab. This will also give daughter time to look into in home care options for her parents. Daughter hopeful to keep her parents in their condo in [place] for as long as is feasible. Referral discussed with Cindy at [facility]. No H+P or therapy notes to send yet, ER note sent by [facility] LADD to Cindy. CM team following closely for coordination of dispo, awaiting recs from therapy team and provider. ADY Morris Discharge Planning/Care Management CM Discharge Assessment Start: 09/19/23 11:10 Freq: Status: Active Protocol: Document 09/19/23 11:10 TREY (Rec: 09/19/23 13:47 TREY [id number]) Discharge Planning Assessment Assigned Toolroom Attendant ADY Guillermo/Assigned Designee Name Ashlee Escamilla, daughter/DPOA Contact Information [phone] Advance Directives? No History Provided By Patient,Family Member,Medical Record Prior Living Arrangements Apartment/Condo Household Members spouse Type of transportation used prior to Relies on Others admit Independent with ADL's No: Needs assist, sedentary lifestyle per dtr Is patient alert and oriented? Yes Needs Assistance With Meal Prep,Managing Medications ,Home Chores / Shopping Patient/Family Preference [facility] Facility Barriers to Discharge Yes Comment Patient likely will discharge to [facility] if accepted and patient/family remain agreeable to plan. Discharge Plan [facility] Facility Transportation Arrangement Likely cabulance Referrals Initiated [facility] Additional Comment [facility]/HH Preference [facility]
[2023-09-19] MEDS: FUROSEMIDE 20 MG/2 ML VIAL IV (13:56)
--- NOTE | 2023-09-19 15:11 | OT.IP.EVAL ---
Addendum entered and electronically signed by Leann Hodges OT 09/19/23 15:43: esign Original Note: Occupational Therapy Inpatient Evaluation/Re-Eval M1 PT/OT-IP Prior Functional Status Start: 09/19/23 15:15 Freq: NEEDED Status: Active Protocol: Document 09/19/23 15:15 [facility] (Rec: 09/19/23 15:39 [facility] [id number]) Medical Review Prior Functional Status Mobility and Gait Pt states uses a 4ww at home with SBA per pt. If going outside, pt has someone with her. Activities of Daily Living and IADL's Pt states has assist from her daughter for all IADL needs and assist for LB dressing needs at times from her or use of LB dressing equipment. . Social History Household Members spouse Living Arrangements Apartment/Condo Number of Stairs To Enter/Railing? 3 steps from the garage with bilateral rails. Home Environment Walk in Shower Home Equipment Four Wheel Walker,Bedside Commode,Shower Seat with Backrest,Hand Held Shower, Care Director,Sock Aid,Grab Bars In Shower M2 OT-IP Current Condition Start: 09/19/23 15:15 Freq: Status: Active Protocol: Document 09/19/23 15:15 [facility] (Rec: 09/19/23 15:39 [facility] [id number]) Occupational Therapy Current Condition Current Condition Evaluation Date 09/19/23 Treatment Diagnosis Altered mental status/Sepsis Diagnosis Onset Date 09/18/23 M3 OT- IP Subjective and Pain Start: 09/19/23 15:15 Freq: Status: Active Protocol: Document 09/19/23 15:15 [facility] (Rec: 09/19/23 15:39 [facility] [id number]) OT- Subjective Occupational Therapy Visit Type Type Initial Evaluation Visit Start Time 14:23 Visit Stop Time 15:11 Total Visit Minutes 47 Occupational Therapy Visit Comments Patient Comments Pt agreed to get up to try to use the commode. Patient/Caregiver Goals TO get better. OT Pain Assessment Pain When Pain Assessed At Rest Pain Present Pain Present Pain Reported Location upper abdomen Intensity 5 Scale Used Numeric (0 - 10) M4 OT- IP ADL's Start: 09/19/23 15:15 Freq: Status: Active Protocol: Document 09/19/23 15:15 [facility] (Rec: 09/19/23 15:39 [facility] [id number]) OT [id number] Comments OT Self-Feeding Comments Not at meal time. OT ADL-Grooming Comments OT Grooming Comments Pt able to wash her face and hands after set-up. OT ADL-Oral Care Comments Oral Care Comments Not performed. OT ADL-Dressing General Eval Lower Body Dressing Ability Maximum Assistance Areas Needing Assistance socks OT ADL-Toileting General Evaluation Toileting Ability Total Assistance Comments OT Toileting Comments Pt not able to use the toilet at this time to have a bowel movement. Pt has uribe in place. OT ADL-Bathing Comments OT Bathing Comments Tried to initiate sponge bath but pt too tired at this time to complete. Pt states that her stands by when she showers at home for safety. M5 OT- IP IADL's Start: 09/19/23 15:15 Freq: Status: Active Protocol: Document 09/19/23 15:15 [facility] (Rec: 09/19/23 15:39 [facility] [id number]) OT-Instrumental Activities of Daily Living Deficits IADL Deficits Identified Deficits Home Safety Awareness Home Safety Comments Pt is a little confused and slow to responds to questions at this time. Medication Management Medication Management Comments Pt's daughter assists. Money Management Money Management Caregiver Provides Assistance Meal Preparation Meal Preparation Caregiver Provides Assist Surgical Rn Surgical Rn Caregiver Provides Assist M6 OT- IP Functional Cognition Start: 09/19/23 15:15 Freq: Status: Active Protocol: Document 09/19/23 15:15 [facility] (Rec: 09/19/23 15:39 [facility] [id number]) Cognitive Factors Limiting Selfcare Function Cognitive Ability Level of Alertness Alert,Confusional State Patient Orientation Name Attention Span Ability Capable of Focused Attention, Unable to Sustain Attention Ability to Follow Commands Able to Follow One Step Commands with Increased Time, Able to Follow One Step Commands with Repetition Memory Description Short Term Impaired Cognitive Comments Cognitive Assessment Comments Pt needing concrete cues to follow, tactile cue for hand placement , and vc for FWW safety. Pt is aware that she is not thinking well at this time. Pt is cooperative and pleasant. OT- Vision and Hearing OT- Hearing Assessment OT- Hearing Assessment Hearing Impaired OT- Vision Assessment Visual Acuity Glasses For Reading Vision Assessment Comments Pt is a little hard of hearing and states probably needs hearing aids. M7 OT- IP Mobility and Balance Start: 09/19/23 15:15 Freq: Status: Active Protocol: Document 09/19/23 15:15 [facility] (Rec: 09/19/23 15:39 [facility] [id number]) OT- Bed Mobility Assessment Supine to Sit Supine to Sit Assist Standby Assistance Sit to Supine Sit to Supine Assist Minimal Assistance OT-Transfer Assessment Sit to and From Stand Sit to and from Stand Minimal Assistance,Moderate Assistance,2 Person Assistance Transfers Transfer Ability Minimal Assistance,Moderate Assistance,1 Person Assistance ,2 Person Assistance Technique Transfer Destination Bed,Bedside Commode Transfer Technique Stand Step Pivot Devices Transfer Assistive Devices Gait Belt,Front Wheeled Walker Comments Mobility Comments Pt CGA for bed mobility to get up and LUZ MARINA to help get her legs back into bed. LUZ MARINA x1 from the bed to stand to MIN/MODA X 2 to stand from lower surfaces and as tiring. Pt needing assist to guide the FWW and for her balance. OT- Balance Assessment Sitting Balance and Reactions Static Sitting Balance Ability Good Dynamic Sitting Balance Ability Good Standing Balance and Reactions Static Standing Balance Ability Fair Dynamic Standing Balance Ability Poor M8 OT- IP Objective Assessments Start: 09/19/23 15:15 Freq: Status: Active Protocol: Document 09/19/23 15:15 [facility] (Rec: 09/19/23 15:39 [facility] [id number]) OT Gross Range of Motion Upper Extremity Range of Motion Assessment Bilaterally Impaired OT Strength Upper Extremity Strength Assessment Bilaterally Impaired Comments Strength Comments BUE 3-/5 to 4-/5 from proximal to distal. M9 OT- IP Assessment and Plan Start: 09/19/23 15:15 Freq: Status: Active Protocol: Document 09/19/23 15:15 [facility] (Rec: 09/19/23 15:39 [facility] [id number]) OT Summary Assessment and Plan Potential Rehabilitation Potential Good Analytic Complexity at Evaluation Moderate Summary OT Impairments Strength,Balance,Functional Cognition,Functional Mobility, Grooming,Dressing,Toileting, Bathing,Toilet Transfers, Shower Transfers,Activity Tolerance Progress Towards Goals Slow Progress due to Medical Issues,Slow Progress due to Activity Tolerance,Slow Progress due to Cognition Assessment Summary Pt MOD complexity and main barriers are steps, decreased balance,strength and activity tolerance and now needing more assist then her elderly is able to assist her at this time. Pt is cooperative and pleasant but needing constant cues for safety awareness. Pt will benefit from skilled rehab prior to going home. Goals Self-Feeding Goal Independent Grooming Goal Independent Dressing Goal Minimal Assistance Toileting Goal Independent Bathing Goal Standby Assistance Toilet Transfer Goal Standby Assistance Shower Transfer Goal Standby Assistance Days to Meet Goals 15 Frequency of Treatment Frequency Of Treatment Once a Day Treatment Plan OT Treatment Plan ADL Training,Functional Cognition Training,Functional Mobility,Patient/Family Education,Discharge Planning Other Treatment Recommendations and Next Pt to stand at the sink with Treatment Focus FWW for grooming needs and SBA . Discharge Recommendations OT Discharge Recommendations SNF Rehab Transportation Needs at Discharge Wheelchair/Cabulance
--- NOTE | 2023-09-19 17:05 | PT.IIE ---
Physical Therapy Inpatient Evaluation/Re-Eval M1 PT/OT-IP Prior Functional Status Start: 09/19/23 15:15 Freq: NEEDED Status: Active Protocol: Document 09/19/23 16:34 AMB (Rec: 09/19/23 17:03 AMB [id number]) Medical Review Prior Functional Status Mobility and Gait Pt states uses a 4ww at home with SBA per pt. If going outside, pt has someone with her. Activities of Daily Living and IADL's Pt states has assist from her daughter for all IADL needs and assist for LB dressing needs at chrissy from her . Social History Household Members spouse Living Arrangements Apartment/Condo Number of Stairs To Enter/Railing? 3 steps from the garage with bilateral rails. Home Environment Walk in Shower Home Equipment Four Wheel Walker,Bedside Commode,Shower Seat with Backrest,Hand Held Shower, Salesforce Administrator,Sock Aid,Grab Bars In Shower Employment Status Retired M2 PT-IP Current Condition Start: 09/19/23 16:32 Freq: NEEDED Status: Active Protocol: Document 09/19/23 16:34 AMB (Rec: 09/19/23 17:03 AMB [id number]) Physical Therapy Current Condition Current Condition Evaluation Date 09/19/23 Treatment Diagnosis AMS/sepsis Onset Date 09/18/23 M3 PT-IP Subjective Start: 09/19/23 16:32 Freq: NEEDED Status: Active Protocol: Document 09/19/23 16:34 AMB (Rec: 09/19/23 17:03 AMB [id number]) Subjective Physical Therapy Visit Type Type Initial Evaluation Visit Start Time 14:25 Visit Stop Time 15:00 Total Visit Minutes 35 Physical Therapy Visit Comments Patient Comments Pt willing to get up, interested in trying to have a BM. Therapy Pain Assessment Pain When Pain Assessed At Rest Pain Present Pain Present Pain Reported Location upper abdomen Intensity 5 Scale Used Numeric (0 - 10) M4 PT-IP Mobility and Gait Start: 09/19/23 16:32 Freq: NEEDED Status: Active Protocol: Document 09/19/23 16:34 AMB (Rec: 09/19/23 17:03 AMB [id number]) PT-Bed Mobility Assessment Rolling Type of Rolling Log Rolling Level of Assist Contact Guard Assistance Supine to Sit Supine to Sit Contact Guard Assistance,2 Person Assistance,Head of Bed Elevated,Bedrails Sit to Supine Sit to Supine Minimal Assistance,2 Person Assistance,Head of Bed Elevated,Bedrails PT-Transfer Assessment Sit to and From Stand Sit to and from Stand Moderate Assistance,2 Person Assistance,Use of Upper Extremities Equipment Transfer Assistive Device Bed Rail,Gait Belt,Front Wheeled Walker Transfers Transfer Destination Bed,Chair Transfer Technique Stand Step Pivot Transfer Ability Level of Assist Minimal Assistance,Moderate Assistance,2 Person Assistance ,Use of Upper Extremities Comments Mobility Comments Naty was able to perform bed mobility with CGA and transferred to the bedside commode with Toshia. Then moved from sit to stand with Toshia but heavy cues for hand placement and safety with walker. She needs extra time to process questions. Gait Assessment Gait Gait Assistance Required: Moderate Assistance,2 Person Assist Distance (Feet) 15 Assistive Devices Assistive Device Gait Belt,Front Wheeled Walker Gait Deviations General Gait Pattern Decreased Stride Length, Decreased Feet Clearance, Flexed Trunk,Wide Based Gait Factors Limiting Gait Function Factors Limiting Gait Function Decreased Activity Tolerance, Decreased Strength,Pain,Poor Balance Comments Gait Comments Naty became fatigued quickly and towards the end of her 15 foot walk needed ModA for walker management and postural support, she was then assisted back into bed and OT worked with her in her room. M5 PT-IP Objective Assessments Start: 09/19/23 16:32 Freq: NEEDED Status: Active Protocol: Document 09/19/23 16:34 AMB (Rec: 09/19/23 17:03 AMB [id number]) Orientation Orientation/Cognition Level of Alertness Confusional State Strength Lower Extremity Strength Assessment Bilaterally Impaired M6 PT-IP Treatment Start: 09/19/23 16:32 Freq: NEEDED Status: Active Protocol: Document 09/19/23 16:34 AMB (Rec: 09/19/23 17:03 AMB [id number]) Physical Therapy Treatment Education Education Provided Safety M7 PT-IP Assessment and Plan Start: 09/19/23 16:32 Freq: NEEDED Status: Active Protocol: Document 09/19/23 16:34 AMB (Rec: 09/19/23 17:03 AMB [id number]) PT Summary Assessment and Plan Potential Rehabilitation Potential Good Status of Condition at Evaluation Evolving Summary Impairments Pain,Strength,Balance, Cognition,Bed Mobility, Transfers,Gait,Activity Tolerance Assessment Summary Naty was able to get out of bed and transfer to the bedside commode with Toshia but with heavy cues for safety with the walker. As she fatigued she needed more cueing and more physical support requiring up to ModAx2 at times. Prior to this illness she had help from her daughter and used a 4WW at home. She would benefit from SNF placement given the severity of fatigue and how quickly she needed increased physical support. Goals Bed Mobility Goal Independent Transfer Goal Contact Guard Assistance Gait Goal Contact Guard Assistance Gait Distance 150 Days to Meet Goals 5 Frequency of Treatment Frequency Of Treatment Once a Day Treatment Plan Physical Therapy Treatment Plan Bed Mobility Training,Transfer Training,Gait Training, Therapeutic Exercise Recommendations To Nursing Amount of Assist Needed 2 Person Assist Discharge Recommendations PT Discharge Recommendations SNF Rehab Transportation Needs at Discharge Wheelchair/Cabulance
[2023-09-19] MEDS: ENOXAPARIN 40 MG/0.4 ML SYRINGE SUBCUT (17:08)
[2023-09-19] MEDS: INSULIN LISPRO 100 UNIT/ML 3ML VIAL SUBCUT (17:08)
[2023-09-19 17:23] VITALS: BP 130/66; PULSE 83; RESP 18; TEMP 36.4; O2SAT 93
--- NOTE | 2023-09-19 18:25 | PM.HP.1 ---
History of Present Illness History of Present Illness Date Patient Seen: 09/19/23 Time Patient Seen: 08:00 Chief complaint: AMS Narrative: This is a very pleasant 87-year-old female with multiple medical problems who is brought to the emergency department with febrile illness and confusion. Patient was found to meet criteria for severe sepsis and organism a potential infection was thought to be urinary with possible pyelonephritis as visualized on CT scan and suspicion for fluid overload. Patient was given IV ceftriaxone and admitted to the hospital for further treatment and monitoring. Patient apparently started feeling poorly last night with generalized weakness after dinner but the family put her to bed this morning the patient seemed even more confused than normal is having significant trouble ambulating Otherwise patient has been in her normal state of health without other symptoms. Past medical history: 1. Type 2 diabetes treated with metformin 2. Hypertension 3. Hypothyroidism 4. Hyperlipidemia 5. GERD 6. Obstructive sleep apnea 7. Hyperparathyroidism, primary 8. Anxiety 9. Elevated alkaline phosphatase and liver enzymes Past surgical history: Unremarkable Allergies: Iodine Health-related a behavior: Patient does not smoke. Does not use alcohol regularly or illicit drugs Social history: Patient lives in and [place] in her home. She has family who is involved and supportive 12 point review of systems is otherwise negative from above Patient denies any shortness a breath or decreased exercise tolerance. Patient denies any chest pain or lightheadedness or dizziness Patient denies any rashes Patient denies any change in bowel movements Patient has had urinary frequency Patient has had fever Patient has been taking medications. [facility] Social History household members: spouse Smoking Status: Never smoker alcohol intake: current Meds Home Medications and Allergies Home Medications Medication Instructions Recorded Confirmed Type aspirin 81 mg tablet,delayed 81 mg PO QDAY ##0 06/05/17 09/18/23 History release atorvastatin 40 mg tablet 40 mg PO HS ##0 06/05/17 09/18/23 History cholecalciferol (vitamin D3) 25 1,000 unit PO QDAY ##0 06/05/17 09/18/23 History mcg (1,000 unit) tablet (Vitamin D3) escitalopram oxalate 20 mg tablet 20 mg PO BID ##0 06/05/17 09/18/23 History furosemide 20 mg tablet 20 mg PO QDAY ##0 06/05/17 09/18/23 History losartan 100 mg tablet 100 mg PO QDAY ##0 06/05/17 09/18/23 History metoprolol succinate 50 mg 50 mg PO QDAY ##0 06/05/17 09/18/23 History tablet,extended release 24 hr (Toprol XL) amlodipine 2.5 mg tablet 2.5 mg PO DAILY 09/18/23 09/18/23 History glipizide 5 mg tablet, extended 5 mg PO DAILY 09/18/23 09/18/23 History release 24 hr levothyroxine 112 mcg tablet 112 mcg PO DAILY 09/18/23 09/18/23 History metformin 1,000 mg tablet 1,000 mg PO BID 09/18/23 09/18/23 History Allergies Allergy/AdvReac Type Severity Reaction Status Date / Time Iodinated Contrast Media Allergy Intermediate Verified 09/18/23 17:33 [IODINATED CONTRAST- ORAL AND IV DYE] Review of Systems Review of Systems Narrative: Twelve point review of systems is negative other than HPI Exam Vital Signs (past 8 hours): - 09/19/23 17:23 Temperature 97.5 F L Pulse Rate 83 Respiratory Rate 18 Blood Pressure 130/66 Pulse Oximetry 93 Oxygen Flow Rate 0 Oxygen Delivery Method Room Air Oxygen Flow Rate 0 Narrative Exam Narrative: Patient is alert and oriented. Yesterday on admission patient had a fever as high as 102. Currently patient is afebrile. Blood pressure has come down is now normal. O2 sat on room air is in the low to mid 90s. Patient is able to answer some questions. She recognizes who I a.m.. Nose me to be her doctor. HEENT: Mucous membranes moist and pink without any lesions. No facial asymmetry Neck: Supple without adenopathy or thyromegaly or bruits Chest: Decreased breath sounds bibasilar with some crackles but no rhonchi or wheezes Cor: Regular rate and rhythm with distant S1 and S2 Abdomen: Positive bowel sounds, soft, nontender, nondistended, no hepatosplenomegaly Extremities no edema. Pulses intact Neurologic exam is nonfocal Objective Labs 09/19/23 03:52 09/19/23 03:52 Labs: Laboratory Results - last 24 hr 09/18/23 09/18/23 09/19/23 17:30 18:20 03:52 WBC 11.9 H RBC 4.00 Hgb 12.5 Hct 37.0 MCV 92.4 MCH 31.3 MCHC 33.9 RDW 13.3 Plt Count 130 L Neut % (Auto) 82.1 H Lymph % (Auto) 6.8 L [place] % (Auto) 10.7 Eos % (Auto) 0.1 L Baso % (Auto) 0.3 Neut # (Auto) 9700 H Lymph # (Auto) 800 L [place] # (Auto) 1300 H Eos # (Auto) 0 Baso # (Auto) 0 Sodium 134 L Potassium 3.4 Chloride 102 Carbon Dioxide 25 BUN 13 Creatinine 0.66 Estimated GFR > 60 BUN/Creatinine Ratio 19.7 Glucose 246 H Calcium 11.3 H Total Bilirubin 1.0 AST 37 H ALT 45 H Alkaline Phosphatase 156 H Troponin I < 0.012 NT-Pro-B Natriuret Pep 955 H 1250 H Total Protein 7.1 Albumin 3.9 Globulin 3.2 Albumin/Globulin Ratio 1.2 Chlamy pneumoniae PCR Not detected Adenovirus (PCR) Not detected B.parapertussis DNA PCR Not detected Coronavirus OC43 (PCR) Not detected Coronavirus HKU1 (PCR) Not detected Coronavirus 229E (PCR) Not detected SARS-CoV-2 (PCR) Not detected Coronavirus NL63 (PCR) Not detected Human Metapneumovir PCR Not detected Influenza Type A (PCR) Not detected Influenza Type B (PCR) Not detected M. pneumoniae (PCR) Not detected Parainfluenza 1 (PCR) Not detected Parainfluenza 2 (PCR) Not detected Parainfluenza 3 (PCR) Not detected Parainfluenza 4 (PCR) Not detected RSV (PCR) Not detected Entero/Rhino (PCR) Not detected Assessment & Plan Assessment & Plan narrative: 87-year-old female who is admitted for severe sepsis with suspicion of pyelonephritis or urinary tract as a etiology. Patient clinically appears improved today Assessment 1. Severe sepsis. Patient meets criteria based on elevated respiratory rate on admission at 26 and temperature of 102? with a white blood cell count initially of 13,000. Patient also with evidence of liver function abnormalities and confusion representing end-organ damage related to sepsis. Urine cultures pending. Blood cultures pending. White blood cells improved today. Will await urine culture results to modify antibiotics pending the organism. In the meantime will continue with ceftriaxone 1 g every 24 hours IV. Will continue to treat with Tylenol as needed as well. Assessment 2. Reviewed echo which has not changed significantly from 2018. Ejection fraction is normal with some left ventricular hypertrophy. Patient does appear fluid overloaded on clinical exam and chest x-ray and BNP confirmed that. Plan: Will give IV Lasix 20 mg x 1. Patient is taking fluid in orally so we will not give IV fluids. Will reassess tomorrow. Patient takes oral Lasix at 20 mg daily and we will reassess tomorrow if she should be started on the oral or if she needs further IV Lasix Assessment 3. Hypertension blood pressure is improved. Will continue outpatient medications. Assessment 4. Type 2 diabetes with elevated blood sugars likely related to infection Plan: Will treat infection. Will restart metformin and glipizide. Will provide sliding scale insulin. Will check blood sugars CBGS q.a.c.. Assessment 5. Hypothyroidism Plan: Continue outpatient thyroid medication Assessment 6. Hyperlipidemia Plan: Continue outpatient atorvastatin Assessment 7. Primary hyperparathyroidism without acute problems Plan: Will recheck labs tomorrow. Assessment 8. Depression anxiety Plan: Continue with the same escitalopram. Code status is DNR. Patient was adamant about this. Will have her fill out a POLST form. Disposition: Hopefully patient will be able to go home at the time of discharge. Anticipate hospitalization for 24-72 hours total pending how quickly she responds to above treatment. And pending no complications. 78 minutes was spent with patient in discussing with physician, nursing, meeting with patient, reviewing chart and workup, formulating a plan and documentation of this. Quality VTE Deep Vein Thrombosis/Pulmonary Embolism Present on Admission: No
[2023-09-19 20:00] VITALS: BP 130/67; PULSE 93; RESP 18; TEMP 36.2; O2SAT 96
[2023-09-19 20:31] VITALS: O2SAT 94
[2023-09-20 04:00] VITALS: BP 137/92; PULSE 84; RESP 17; TEMP 35.8; O2SAT 96
[2023-09-20 05:28] LABS: Add Manual Diff / Slide Review NO; Basophils Absolute Auto 0 /uL (0-100); Basophils Percent Auto 0.3 % (0-2); Eosinophils Absolute Auto 100 /uL (0-450); Eosinophils Percent Auto 0.6 % (2-4); Hematocrit 37.3 % (36-46); Hemoglobin 12.8 g/dL (12.0-16.0); Lymphocytes Absolute Auto 1400 /uL (1100-4500); Mean Corpuscular HGB Conc 34.3 % (30-36); Mean Corpuscular Hemoglobin 31.5 PG (26-34); Mean Corpuscular Volume 91.6 fL (80-100); Monocytes Absolute Auto 1200 /uL (0-900); Monocytes Percent Auto 11.2 % (3-14); Neutrophils Absolute Auto 7800 /uL (1500-7000); Neutrophils Percent Auto 74.9 % (50-75); Platelet Count 139 X10^3/uL (150-400); Red Blood Cell Count 4.07 X10^6/uL (4.0-5.2); Red Cell Distribution Width 13.6 % (11.6-14.8); White Blood Cell Count 10.5 X10^3/uL (4.5-11.0)
[2023-09-20 05:43] LABS: Alanine Aminotransferase 51 IU/L (<35); Albumin 3.8 g/dL (3.5-5.0); Albumin Globulin Ratio 1.1 (1.0-2.8); Alkaline Phosphatase 173 U/L (38-126); Aspartate Aminotransferase 44 IU/L (14-36); BUN Creatinine Ratio 23.5 (6-22); Blood Urea Nitrogen 16 mg/dL (7-17); Calcium 11.8 mg/dL (8.4-10.2); Carbon Dioxide 28 mmol/L (22-32); Chloride 100 mmol/L (98-107); Estimated Glomerular Filt Rate > 60 mL/min (>60); Globulin 3.4 g/dL (1.7-4.1); Glucose 171 mg/dL (80-110); HEMOLYSIS < 15 (0-50); Potassium 3.6 mmol/L (3.4-5.1); Sodium 135 mmol/L (137-145); Total Protein 7.2 g/dL (6.3-8.2)
[2023-09-20] MEDS: LEVOTHYROXINE 112 MCG TABLET PO (06:34)
[2023-09-20] MEDS: glipiZIDE 5 MG TABLET 2.5 MG PO ×2 (07:05→17:41)
[2023-09-20 07:59] VITALS: BP 139/73; PULSE 80; RESP 18; TEMP 36.4; O2SAT 95
[2023-09-20] MEDS: polyethylene glycoL 3350 17 GM POWD.PACK PO (09:21)
[2023-09-20] MEDS: METFORMIN HCL 500 MG TABLET 1000 MG PO ×2 (09:22→20:36)
[2023-09-20] MEDS: AMLODIPINE 5 MG TABLET 2.5 MG PO (09:23)
[2023-09-20] MEDS: CHOLECALCIFEROL (VITAMIN D3) 1,000 UNIT TABLET 1000 UNIT PO (09:23)
[2023-09-20] MEDS: cefTRIAXone 1,000 MG in SODIUM CHLORIDE 0.9% 100 ML 200 MG IV (09:23)
[2023-09-20] MEDS: ACETAMINOPHEN 325 MG TABLET 650 MG PO ×2 (09:31→14:34)
[2023-09-20] MEDS: ENOXAPARIN 40 MG/0.4 ML SYRINGE SUBCUT (10:00)
[2023-09-20] MEDS: INSULIN LISPRO 100 UNIT/ML 3ML VIAL SUBCUT ×2 (10:26→17:42)
[2023-09-20] MEDS: FUROSEMIDE 20 MG TABLET PO (10:32)
--- NOTE | 2023-09-20 12:33 | OT.IP.TRT ---
Current Diagnoses Sepsis, unspecified organism (09/18/23) Occupational Therapy Treatment Note M2 OT-IP Current Condition Start: 09/19/23 15:15 Freq: Status: Active Protocol: Document 09/19/23 15:15 [facility] (Rec: 09/19/23 15:39 [facility] [id number]) Occupational Therapy Current Condition Current Condition Evaluation Date 09/19/23 Treatment Diagnosis Altered mental status/Sepsis Diagnosis Onset Date 09/18/23 M3 OT- IP Subjective and Pain Start: 09/19/23 15:15 Freq: Status: Active Protocol: Document 09/20/23 12:03 [facility] (Rec: 09/20/23 13:17 [facility] [id number]) OT- Subjective Occupational Therapy Visit Type Type Treatment Note Visit Start Time 12:03 Visit Stop Time 12:33 Total Visit Minutes 30 Notes Pt states to have BP on left arm 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 Nursing notified . Occupational Therapy Visit Comments Patient Comments Pt wanting to try to use the BSC and agreed to sponge off. Patient/Caregiver Goals TO get better. OT Pain Assessment Pain When Pain Assessed At Rest Pain Present Pain Present Pain Reported Location Right Ear Intensity 4 M4 OT- IP ADL's Start: 09/19/23 15:15 Freq: Status: Active Protocol: Document 09/20/23 12:03 [facility] (Rec: 09/20/23 13:17 [facility] [id number]) OT [id number] Comments OT Self-Feeding Comments Not at meal time. OT ADL-Grooming General Evaluation Grooming Ability Standby Assistance Comments OT Grooming Comments Able to do while seated on the BSC. OT ADL-Oral Care Comments Oral Care Comments Not performed. OT ADL-Dressing General Eval Lower Body Dressing Ability Maximum Assistance Areas Needing Assistance Socks OT ADL-Toileting General Evaluation Toileting Ability Total Assistance Comments OT Toileting Comments Pt tried to have a bowel movement and unsuccessful at this time. Pt has uribe in place. OT ADL-Bathing Bathing Type Bathing Type Sponge Bath General Evaluation Bathing Ability Moderate Assistance Areas Needing Assistance Wash/Dry Back,Wash/Dry Perineal Area,Wash/Dry Lower Extremities Comments OT Bathing Comments Pt able to assist with her arms and chest at this time. M6 OT- IP Functional Cognition Start: 09/19/23 15:15 Freq: Status: Active Protocol: Document 09/20/23 12:03 [facility] (Rec: 09/20/23 13:17 [facility] [id number]) Cognitive Factors Limiting Selfcare Function Cognitive Ability Level of Alertness Alert Patient Orientation Name Attention Span Ability Capable of Focused Attention, Capable of Sustained Attention Ability to Follow Commands Able to Follow One Step Commands Memory Description Short Term Impaired Cognitive Comments Cognitive Assessment Comments Pt still needing safety cues to push up from surfaces as pt tends to grab the FWW to stand. M7 OT- IP Mobility and Balance Start: 09/19/23 15:15 Freq: Status: Active Protocol: Document 09/20/23 12:03 [facility] (Rec: 09/20/23 13:17 [facility] [id number]) OT- Bed Mobility Assessment Supine to Sit Supine to Sit Assist Minimal Assistance,Bedrails OT-Transfer Assessment Sit to and From Stand Sit to and from Stand Minimal Assistance,Moderate Assistance Transfers Transfer Ability Moderate Assistance,1 Person Assistance Technique Transfer Destination Bed,Bedside Commode Transfer Technique Stand Step Pivot Devices Transfer Assistive Devices Gait Belt,Front Wheeled Walker Comments Mobility Comments Pt CGA to help get upright from side lying and use of bed rail to assist as well. MIN/ MODA to stand and MODA for balance and to help guide the FWW as pt unsteady on her feet and easily tires. OT- Balance Assessment Sitting Balance and Reactions Static Sitting Balance Ability Good Dynamic Sitting Balance Ability Good Standing Balance and Reactions Static Standing Balance Ability Fair Dynamic Standing Balance Ability Poor M8 OT- IP Objective Assessments Start: 09/19/23 15:15 Freq: Status: Active Protocol: Document 09/19/23 15:15 [facility] (Rec: 09/19/23 15:39 [facility] [id number]) OT Gross Range of Motion Upper Extremity Range of Motion Assessment Bilaterally Impaired OT Strength Upper Extremity Strength Assessment Bilaterally Impaired Comments Strength Comments BUE 3-/5 to 4-/5 from proximal to distal. M9 OT- IP Assessment and Plan Start: 09/19/23 15:15 Freq: Status: Active Protocol: Document 09/20/23 12:03 [facility] (Rec: 09/20/23 13:17 [facility] [id number]) OT Summary Assessment and Plan Potential Rehabilitation Potential Good Analytic Complexity at Evaluation Moderate Summary OT Impairments Strength,Balance,Functional Cognition,Functional Mobility, Grooming,Dressing,Toileting, Bathing,Toilet Transfers, Shower Transfers,Activity Tolerance Progress Towards Goals Progressing Toward Goals,Slow Progress due to Medical Issues ,Slow Progress due to Activity Tolerance Assessment Summary Pt able to get out of bed with less assist and just needing one person assist for transfers now and able to participate in sponge bathing while seated on the BSC. Pt will still benefit from skilled rehab to increase overall activity tolerance and independence with ADL and mobility needs. Pt is elderly and not able to provide her physical assist. Goals Self-Feeding Goal Independent Grooming Goal Independent Dressing Goal Minimal Assistance Toileting Goal Independent Bathing Goal Standby Assistance Toilet Transfer Goal Standby Assistance Shower Transfer Goal Standby Assistance Days to Meet Goals 14 Frequency of Treatment Frequency Of Treatment Once a Day Treatment Plan OT Treatment Plan ADL Training,Functional Cognition Training,Functional Mobility,Patient/Family Education,Discharge Planning Other Treatment Recommendations and Next Pt to stand at the sink with Treatment Focus FWW for grooming needs and SBA . Discharge Recommendations OT Discharge Recommendations SNF Rehab Transportation Needs at Discharge Wheelchair/Cabulance
--- NOTE | 2023-09-20 13:48 | PT.IPTN ---
Current Diagnoses Sepsis, unspecified organism (09/18/23) Physical Therapy Treatment Note M2 PT-IP Current Condition Start: 09/19/23 16:32 Freq: NEEDED Status: Active Protocol: Document 09/19/23 16:34 AMB (Rec: 09/19/23 17:03 AMB [id number]) Physical Therapy Current Condition Current Condition Evaluation Date 09/19/23 Treatment Diagnosis AMS/sepsis Onset Date 09/18/23 M3 PT-IP Subjective Start: 09/19/23 16:32 Freq: NEEDED Status: Active Protocol: Document 09/20/23 14:27 TS (Rec: 09/20/23 14:51 TS [id number]) Subjective Physical Therapy Visit Type Type Treatment Note Visit Start Time 13:48 Visit Stop Time 14:18 Total Visit Minutes 30 Number of GREENHOUSE LABORER Visits 1 Physical Therapy Visit Comments Patient Comments Pt found sitting up with nursing, agreed to PT. M4 PT-IP Mobility and Gait Start: 09/19/23 16:32 Freq: NEEDED Status: Active Protocol: Document 09/20/23 14:27 TS (Rec: 09/20/23 14:51 TS [id number]) PT-Bed Mobility Assessment Sit to Supine Sit to Supine Standby Assistance,Bedrails PT-Transfer Assessment Sit to and From Stand Sit to and from Stand Standby Assistance,Contact Guard Assistance Equipment Transfer Assistive Device Gait Belt,Front Wheeled Walker Comments Mobility Comments Sit to stand from bed with FWW CGA, pt is slow to stand and requires cues for UEs pushing from bed. She ambulated in room ~50' SBA with FWW and slow step to gait, pt has some SOB cued for PLB. PT sat EOB for rest break, BP unremarkable in sitting. Pt stood again SBA with FWW, ambulated another 10' SBA. She performed steps x3 on step stool with handheld assist and counter support Toshia with cues for sequencing. She ambulated back to bed, sit to supine into bed SBA, pt required some extra effort for LEs into bed. pt was left with family in room, pt notified of potentially going to rehab tomorrow. Gait Assessment Gait Gait Assistance Required: Standby Assistance Distance (Feet) 60 Assistive Devices Assistive Device Gait Belt,Front Wheeled Walker Gait Deviations General Gait Pattern Decreased Stride Length, Decreased Feet Clearance, Flexed Trunk,Wide Based Gait Factors Limiting Gait Function Factors Limiting Gait Function Decreased Activity Tolerance, Decreased Strength,Pain,Poor Balance Comments Gait Comments See mobility comments Stair Climbing Assessment Evaluation Level of Assist On Stairs Minimal Assistance,1 Person Assistance Devices Stair Climbing Assistive Devices Left Railing,Right Railing Technique/Endurance Stair Climbing Direction Ascend and Descend Stair Climbing Technique Step to Step Number of Steps Climbed 3 Comments Stair Climbing Comments See mobility comments PT-Balance Assessment Sitting Balance and Reactions Static Sitting Balance Ability Good Dynamic Sitting Balance Ability Good Standing Balance and Reactions Static Standing Balance Ability Good Dynamic Standing Balance Ability Fair M5 PT-IP Objective Assessments Start: 09/19/23 16:32 Freq: NEEDED Status: Active Protocol: Document 09/19/23 16:34 AMB (Rec: 09/19/23 17:03 AMB [id number]) Orientation Orientation/Cognition Level of Alertness [place] Strength Lower Extremity Strength Assessment Bilaterally Impaired M6 PT-IP Treatment Start: 09/19/23 16:32 Freq: NEEDED Status: Active Protocol: Document 09/20/23 14:27 TS (Rec: 09/20/23 14:51 TS [id number]) Physical Therapy Treatment Education Education Provided Safety M7 PT-IP Assessment and Plan Start: 09/19/23 16:32 Freq: NEEDED Status: Active Protocol: Document 09/20/23 14:27 TS (Rec: 09/20/23 14:51 TS [id number]) PT Summary Assessment and Plan Potential Rehabilitation Potential Good Summary Impairments Pain,Strength,Balance, Cognition,Bed Mobility, Transfers,Gait,Activity Tolerance Progress Towards Goals Progressing Toward Goals Assessment Summary Naty is making some progress with her mobility this session . She is SBA for bed mobility and for sit stands with FWW. She progressed her gait to ~60 'SBA with FWW, reported some fatigue and SOB. Pt continues to have low activity tolerance and strength. PT continues to recommend SNF at this time. She would benefit from daily PT before safe d/c back home. Goals Bed Mobility Goal Independent Transfer Goal Contact Guard Assistance Gait Goal Contact Guard Assistance Gait Distance 150 Days to Meet Goals 5 Frequency of Treatment Frequency Of Treatment Once a Day Treatment Plan Physical Therapy Treatment Plan Bed Mobility Training,Transfer Training,Gait Training, Therapeutic Exercise Recommendations To Nursing Amount of Assist Needed 1 Person Assist Discharge Recommendations PT Discharge Recommendations SNF Rehab Transportation Needs at Discharge Wheelchair/Cabulance
[2023-09-20 20:17] VITALS: BP 140/76; PULSE 84; RESP 17; TEMP 36; O2SAT 92
--- NOTE | 2023-09-20 20:48 | PM.PN.1 ---
Subjective Subjective Date Patient Seen: 09/20/23 Time Patient Seen: 09:20 Interval history: chief complaint: uti, AMS Naty reports she continues to improve today her mental status is improved much more to baseline per family. Still feeling weak and needing help to get out of bed. Exam Vital Signs (past 8 hours): - 09/20/23 20:17 Temperature 96.8 F L Pulse Rate 84 Respiratory Rate 17 Blood Pressure 140/76 Pulse Oximetry 92 Oxygen Delivery Method CPAP Oxygen Flow Rate 0 Narrative Exam Narrative: pleasant elder sitting in bed HENMT Other: normocephalic atraumatic Resp Other: clear to auscultation bilaterally no crackles Cardio Other: regular rate, S1/S2, no pedal edema GI Other: soft nontender active bowel sounds no CVA TTP Other: uribe draining straw yellow no gross blood Neuro Other: AAOx3, moving all extremities Objective Labs 09/20/23 04:35 09/20/23 04:35 Labs: Laboratory Results - last 24 hr 09/20/23 04:35 WBC 10.5 RBC 4.07 Hgb 12.8 Hct 37.3 MCV 91.6 MCH 31.5 MCHC 34.3 RDW 13.6 Plt Count 139 L Neut % (Auto) 74.9 Lymph % (Auto) 13.0 L [place] % (Auto) 11.2 Eos % (Auto) 0.6 L Baso % (Auto) 0.3 Neut # (Auto) 7800 H Lymph # (Auto) 1400 [place] # (Auto) 1200 H Eos # (Auto) 100 Baso # (Auto) 0 Sodium 135 L Potassium 3.6 Chloride 100 Carbon Dioxide 28 BUN 16 Creatinine 0.68 Estimated GFR > 60 BUN/Creatinine Ratio 23.5 H Glucose 171 H Calcium 11.8 H Total Bilirubin 1.0 AST 44 H ALT 51 H Alkaline Phosphatase 173 H Total Protein 7.2 Albumin 3.8 Globulin 3.4 Albumin/Globulin Ratio 1.1 PFSH Social History household members: spouse Smoking Status: Never smoker alcohol intake: current Assessment & Plan Assessment & Plan narrative: 87-year-old female who is admitted for severe sepsis with suspicion of pyelonephritis or urinary tract as a etiology. #Severe sepsis improved, continue treatment, encourage mobilization and eating #Volume overload Improved s/p lasix iv this morning - no crackles no pedal edema - resume home po lasix #Hypertension stable continue outpatient medications. #Type 2 diabetes with elevated blood sugars likely related to infection continue metformin and glipizide with sliding scale insulin. #Hypothyroidism continue outpatient thyroid medication #Hyperlipidemia continue outpatient atorvastatin #Primary hyperparathyroidism without acute problems calcium is high, pth ordered, may be able to f/up as outpt #Depression anxiety stable continue home escitalopram. diet: diabetic code status: DNR PCP: Ziyad dispo: pending improvement, maybe tomorrow Quality VTE Deep Vein Thrombosis/Pulmonary Embolism Present on Admission: No
[2023-09-21 06:12] LABS: Add Manual Diff / Slide Review NO; Basophils Absolute Auto 0 /uL (0-100); Basophils Percent Auto 0.8 % (0-2); Eosinophils Absolute Auto 200 /uL (0-450); Eosinophils Percent Auto 3.2 % (2-4); Hematocrit 38.1 % (36-46); Hemoglobin 12.8 g/dL (12.0-16.0); Lymphocytes Absolute Auto 1300 /uL (1100-4500); Lymphocytes Percent Auto 20.8 % (25-40); Mean Corpuscular HGB Conc 33.7 % (30-36); Mean Corpuscular Hemoglobin 31.2 PG (26-34); Mean Corpuscular Volume 92.5 fL (80-100); Monocytes Absolute Auto 700 /uL (0-900); Monocytes Percent Auto 12.1 % (3-14); Neutrophils Absolute Auto 3900 /uL (1500-7000); Neutrophils Percent Auto 63.1 % (50-75); Platelet Count 168 X10^3/uL (150-400); Red Blood Cell Count 4.12 X10^6/uL (4.0-5.2); Red Cell Distribution Width 13.4 % (11.6-14.8); White Blood Cell Count 6.2 X10^3/uL (4.5-11.0)
[2023-09-21 06:24] LABS: Alanine Aminotransferase 95 IU/L (<35); Albumin 3.7 g/dL (3.5-5.0); Albumin Globulin Ratio 1.1 (1.0-2.8); Alkaline Phosphatase 232 U/L (38-126); Aspartate Aminotransferase 80 IU/L (14-36); BUN Creatinine Ratio 31.4 (6-22); Bilirubin Total 0.9 mg/dL (0.2-1.3); Blood Urea Nitrogen 22 mg/dL (7-17); Calcium 11.7 mg/dL (8.4-10.2); Carbon Dioxide 27 mmol/L (22-32); Chloride 102 mmol/L (98-107); Estimated Glomerular Filt Rate > 60 mL/min (>60); Globulin 3.3 g/dL (1.7-4.1); Glucose 155 mg/dL (80-110); HEMOLYSIS < 15 (0-50); Potassium 3.8 mmol/L (3.4-5.1); Sodium 135 mmol/L (137-145)
[2023-09-21] MEDS: LEVOTHYROXINE 112 MCG TABLET PO (06:37)
[2023-09-21] MEDS: glipiZIDE 5 MG TABLET 2.5 MG PO (06:37)
[2023-09-21] MEDS: ACETAMINOPHEN 325 MG TABLET 650 MG PO (07:29)
[2023-09-21 07:32] VITALS: BP 156/77; PULSE 74; RESP 16; TEMP 36.4; O2SAT 94
[2023-09-21] MEDS: METFORMIN HCL 500 MG TABLET 1000 MG PO (08:19)
[2023-09-21] MEDS: polyethylene glycoL 3350 17 GM POWD.PACK PO (08:19)
[2023-09-21] MEDS: cefTRIAXone 1,000 MG in SODIUM CHLORIDE 0.9% 100 ML 200 MG IV (08:19)
[2023-09-21] MEDS: AMLODIPINE 5 MG TABLET 2.5 MG PO (08:19)
[2023-09-21] MEDS: ENOXAPARIN 40 MG/0.4 ML SYRINGE SUBCUT (08:19)
[2023-09-21] MEDS: FUROSEMIDE 20 MG TABLET PO (08:19)
[2023-09-21] MEDS: CHOLECALCIFEROL (VITAMIN D3) 1,000 UNIT TABLET 1000 UNIT PO (08:20)
--- NOTE | 2023-09-21 09:03 | CM.DPNOTE ---
Addendum entered by ADY Hurley 09/21/23 11:32: Provider signed med list. NATUROPATHIC ONCOLOGY PROVIDER faxed PASSR and signed med list to Felecia at (f [phone]). NATUROPATHIC ONCOLOGY PROVIDER placed PASSR and med list in physical chart. NATUROPATHIC ONCOLOGY PROVIDER updated RN. NATUROPATHIC ONCOLOGY PROVIDER updated Felecia at . NATUROPATHIC ONCOLOGY PROVIDER gave pt copy of IMM at 0930. Original Note: DCP note NATUROPATHIC ONCOLOGY PROVIDER reviewed EMR. NATUROPATHIC ONCOLOGY PROVIDER spoke with Felecia at [facility]. Can take pt today at 1345. NATUROPATHIC ONCOLOGY PROVIDER updated pt and RN. Pt agreeable. NATUROPATHIC ONCOLOGY PROVIDER gave RN RN report number. NATUROPATHIC ONCOLOGY PROVIDER updated TOOL MAINTENANCE WORKER and provider on dc timeline. Plan: pt to dc to today at 1345. NATUROPATHIC ONCOLOGY PROVIDER will fax signed med list, PASSR, and dc summary when available and place in pt's paper chart. ADY Hurley
--- NOTE | 2023-09-21 11:01 | PM.DS.1 ---
History of Present Illness History of Present Illness Date Patient Seen: 09/21/23 Time Patient Seen: 10:20 Chief complaint: AMS Narrative: chief complaint: UTI/AMS feeling better this morning she is eating and voiding well. Family agrees her mental state is much improved. Planning discharge for [facility] later today. Discharge Providers Provider Date of admission: 09/18/23 19:48 Discharge Date: 09/21/23 Primary care physician: Zenaida Lackey MD Consults: 09/18/23 21:10 Consult to Occupational Therapy Evaluate & Treat Comment: Physician Instructions: Evaluate and treat Consult to Physical Therapy Evaluate & Treat Comment: Physician Instructions: Evaluate and Treat Discharge provider: Andrew Garcia MD Summary Hospital Course Discharge Diagnosis: #Severe sepsis #urinary tract infection #Volume overload #Hypertension #Type 2 diabetes non insulin dependent #Hypothyroidism #Hyperlipidemia #Primary hyperparathyroidism #major depression, moderate, single episode Hospital Course: 87-year-old female who is admitted for severe sepsis with suspicion of pyelonephritis or urinary tract as an etiology. She has improved clinically with iv antibiotics and is able to eat a full meal this morning. She is mobilizing but still too weak to go home per PT. Plan is to discharge to [facility] with oral antibiotics and then f/up as an outpatient after she goes home from rehab. Daughter is here today and agrees with plan. Status at Discharge Cognitive/behavioral status at discharge: at baseline, oriented Functional status at discharge: uses cane/walker Overall status at discharge: patient is progressing back to baseline Exam Vital Signs (past 8 hours): - 09/21/23 07:32 Temperature 97.6 F Pulse Rate 74 Respiratory Rate 16 Blood Pressure 156/77 H Pulse Oximetry 94 Oxygen Flow Rate 0 Oxygen Delivery Method Room Air Oxygen Flow Rate 0 Narrative Exam Narrative: sitting up in bed with family at bedside Const Other: well nourished well developed HENMT Other: normocephalic atraumatic Resp Other: clear to auscultation bilaterally no crackles Cardio Other: regular rate, S1/S2 GI Other: soft nontender nondistended Neuro Other: AAOx3 Extrem Other: no pedal edema, moving all limbs Objective Labs 09/21/23 05:15 09/21/23 05:15 Labs: Laboratory Results - last 24 hr 09/21/23 05:15 WBC 6.2 RBC 4.12 Hgb 12.8 Hct 38.1 MCV 92.5 MCH 31.2 MCHC 33.7 RDW 13.4 Plt Count 168 Neut % (Auto) 63.1 Lymph % (Auto) 20.8 L [place] % (Auto) 12.1 Eos % (Auto) 3.2 Baso % (Auto) 0.8 Neut # (Auto) 3900 Lymph # (Auto) 1300 [place] # (Auto) 700 Eos # (Auto) 200 Baso # (Auto) 0 Sodium 135 L Potassium 3.8 Chloride 102 Carbon Dioxide 27 BUN 22 H Creatinine 0.70 Estimated GFR > 60 BUN/Creatinine Ratio 31.4 H Glucose 155 H Calcium 11.7 H Total Bilirubin 0.9 AST 80 H ALT 95 H Alkaline Phosphatase 232 H Total Protein 7.0 Albumin 3.7 Globulin 3.3 Albumin/Globulin Ratio 1.1 PFSH Social History household members: spouse Smoking Status: Never smoker alcohol intake: current Discharge Assessment & Plan Assessment and Plan Assessment: #Severe sepsis #urinary tract infection improved, completed iv abx, encourage mobilization and eating will discharge on oral antibiotics course for 5 days. #Volume overload improved s/p some iv lasix, no pedal edema no crackles, resume home po lasix #Hypertension stable continue outpatient medications. #Type 2 diabetes with elevated blood sugars likely related to infection continue metformin and glipizide with sliding scale insulin. #Hypothyroidism continue outpatient thyroid medication #Hyperlipidemia continue outpatient atorvastatin #Primary hyperparathyroidism without acute problems Lifelong calcium elevation issues, stable, f/up as outpt #Depression anxiety stable continue home escitalopram diet: diabetic code status: DNR MDM: /daughter PCP: Ziyad dispo: pending improvement, maybe tomorrow Discharge Plan Discharge Plan Patient Disposition: Xfer Inpatient Rehab Transfer to: [facility] Discharge orders & Medications Discharge Orders: Discharge (Order); Ordered 09/21/23 Ordered By: Andrew Garcia Prescriptions: New levofloxacin 250 mg Tablet 250 mg PO 0700 Qty: 5 0RF enoxaparin [Lovenox] 40 mg/0.4 mL Syringe 40 mg SUBCUT DAILY Qty: 30 0RF Continued atorvastatin 40 MG tablet 40 mg PO HS Qty: 0 furosemide 20 MG tablet 20 mg PO QDAY Qty: 0 losartan 100 MG tablet 100 mg PO QDAY Qty: 0 escitalopram oxalate 20 MG tablet 20 mg PO BID Qty: 0 metoprolol succinate [Toprol XL] 50 MG tablet extended release 24 hr 50 mg PO QDAY Qty: 0 aspirin 81 MG tablet,delayed release (DR/EC) 81 mg PO QDAY Qty: 0 cholecalciferol (vitamin D3) [Vitamin D3] 1,000 UNIT tablet 1,000 unit PO QDAY Qty: 0 glipizide 5 mg tablet extended release 24hr 5 mg PO DAILY amlodipine 2.5 mg tablet 2.5 mg PO DAILY metformin 1,000 mg tablet 1,000 mg PO BID levothyroxine 112 mcg tablet 112 mcg PO DAILY Follow up/Referrals: Zenaida Lackey MD [Primary Care Provider] - Discharge Data Primary Care Provider: Zenaida Lackey Quality VTE Deep Vein Thrombosis/Pulmonary Embolism Present on Admission: No
[2023-09-24 01:06] LABS: Calcium 11.5 mg/dL (8.7-10.3); Parathyroid Hormone, Intact 89 pg/mL (15-65)
== END 2023-09-21 14:09 | DRG 871 ==
LOC: ED 18:40 → AC 19:49
PROVIDERS: Emergency Medicine; Admitting Provider Family Medicine; Emergency Provider Emergency Medicine; PCP Family Medicine; Referring Provider Emergency Medicine; Visit Provider Family Medicine
DX: A41.9 Sepsis, unspecified organism (principal); G93.41 Metabolic encephalopathy; N39.0 Urinary tract infection, site not specified; F32.1 Major depressive disorder, single episode, moderate; R65.20 Severe sepsis without septic shock; I10 Essential (primary) hypertension; E11.65 Type 2 diabetes mellitus with hyperglycemia; E03.9 Hypothyroidism, unspecified; E78.5 Hyperlipidemia, unspecified; F41.9 Anxiety disorder, unspecified; E21.3 Hyperparathyroidism, unspecified; E87.70 Fluid overload, unspecified; G47.33 Obstructive sleep apnea (adult) (pediatric); Z66 Do not resuscitate; Z79.84 Long term (current) use of oral hypoglycemic drugs
CPT/HCPCS: 36415; 70450; 71045; 74176; 80053; 81001; 82310; 82962; 83605; 83690; 83880; 83970; 84145; 84484; 85025; 85610; 85730; 87040; 87077; 87086; 87186; 87633; 93005; 93010; 93306; 96365; 96368; 96375; 97116; 97162; 97166; 97530; 97535; 99285; J0131; J0696; J1650; J1815; J1940; J2405